=== PATIENT | male | born 1955 | race Caucasian/White ===

== ENCOUNTER 2020-02-28 15:19 | Emergency (ER) | payer MEDICARE, SELFPAY ==
--- NOTE | ~2020-02-28 | XR_ITS ---
XR chest 2V 02/28/2020 15:49 Indication: Bilateral leg swelling. Chest pain. Procedure: 2 view chest Comparison: No prior studies for comparison. Findings: Heart size normal. Small right pleural effusion. No focal pneumonia, edema or pneumothorax. The lungs are hyperinflated which is consistent with, but not diagnostic of chronic obstructive pulm onary disease. Impression: 1: Small right pleural effusion which appears chronic. Reviewed, dictated and finalized at location A. Impression: 1: Small right pleural effusion which appears chronic.
--- NOTE | ~2020-02-28 | US_ITS ---
EXAMINATION:US venous doppler LE BI INDICATION:Leg pain TECHNIQUE: Multiple grayscale, color flow and Doppler images of the lower extremity deep venous syste ms were obtained and reviewed. COMPARISON:No prior studies for comparison. FINDINGS: The common femoral, superficial femoral and popliteal veins demonstrate normal respiratory variation, augmentation and compressibility. Color flow is also seen within the posterior tibial, pe roneal, greater saphenous and profunda veins. IMPRESSION: 1: No lower extremity deep venous thrombosis. Reviewed, dictated and finalized at location A.
[2020-02-28 15:20] VITALS: BP 92/49; PULSE 84; RESP 16; TEMP 36.8; O2SAT 97
--- NOTE | 2020-02-28 15:31 | ECG_ITS ---
Measurements Intervals [place] Rate: 76 P: 27 LA: 204 QRS: 99 QRSD: 93 T: 30 QT: 381 QTc: 430 Interpretive Statements SINUS RHYTHM LOW QRS VOLTAGE IN PRECORDIAL LEADS BORDERLINE R WAVE PROGRESSION, ANTERIOR LEADS BASELINE WANDER- II, III BORDERLINE ECG Electronically Signed On 02-29-2020 6:58:51 CDT by Feroz Gambino D.O.
[2020-02-28 15:47] LABS: Basophils Percent Auto 0.4 % (0.2-1.2); Eosinophils Percent Auto 0.8 % (0-4.4); Hematocrit 44.8 % (42.0-52.0); Hemoglobin 14.6 g/dL (14.0-18.0); Immature Granulocyte Absolute 0.02 K/mm3 (0.00-0.031); Immature Granulocyte Percent A 0.4 % (0-0.5); Immature Platelet Fraction Pct 7.7 % (0.9-11.2); Lymphocytes Absolute Auto 1.03 K/mm3 (0.9-3.2); Lymphocytes Percent Auto 21.1 % (18.3-44.2); Mean Corpuscular HGB Conc 32.6 g/dl (32-36); Mean Corpuscular Hemoglobin 29.4 pg (26-34); Mean Corpuscular Volume 90.3 fl (80-100); Mean Platelet Volume 12.8 fl (7.4-10.4); Monocytes Absolute Auto 0.3 K/mm3 (0.1-0.6); Monocytes Percent Auto 6.1 % (2.6-8.5); Neutrophils Absolute Auto 3.5 K/mm3 (1.3-6.7); Neutrophils Percent Auto 71.2 % (45.5-73.1); Platelet Count Result 96 k/mm3 (150-375); Red Blood Count 4.96 M/mm3 (4.6-6.20); Red Cell Distribution Width 13.2 % (11.5-14.5); White Blood Count 4.9 K/mm3 (4.5-10.0)
[2020-02-28 15:52] LABS: INR 1.1; Prothrombin Time 13.7 Seconds (11.1-14.7)
[2020-02-28 15:53] LABS: Partial Thromboplastin Time 35.4 SECONDS (22.3-36.8)
[2020-02-28 15:55] LABS: Blood Urea Nitrogen 11 mg/dL (9-20); Calcium 9.8 mg/dL (8.4-10.2); Carbon Dioxide 24 mmol/L (22-30); Chloride 111 mmol/L (98-107); Estimated CRCL calculation 99 ml/min; Estimated Glomerular Filt Rate > 60; Glucose 108 mg/dL (75-110); Potassium 3.8 mmol/L (3.4-5.0); Sodium 141 mmol/L (137-145)
[2020-02-28 16:05] LABS: NT Pro B Type Natriuretic Pept 138 PG/ML (5-100)
[2020-02-28 16:08] LABS: Troponin I < 0.012 ng/mL (0.000-0.034)
--- NOTE | 2020-02-28 18:04 | ED.GENADULT ---
HPI - General Adult General Chief complaint: Extremity Problem,Nontraumatic Stated complaint: Lower Ext Swelling Time Seen by Provider: 02/28/20 17:57 Source: patient and family Mode of arrival: wheelchair Limitations: no limitations History of Present Illness HPI narrative: Patient is a 64-year-old male who presents for evaluation of intermittent chest pain, lower extremity swelling. Patient's states that he has had intermittent chest pain over the past several days, but has had no chest pain today. No current shortness of breath. He has had a dry cough over the past several days. Patient also has had reported lower extremity swelling chronically, worsened over the past week. No calf pain, redness. No fever or chills. Patient has been compliant with his medications. No history of blood clot in the past. No history of heart attack, no cardiac stents. Patient currently denying any pain. No recent travel. No recent sick exposures. Related Data Home Medications Medication Instructions Recorded Confirmed cephalexin 500 mg capsule 500 mg PO cap 12/17/19 hydrocodone 10 mg-acetaminophen 1 tablet PO Q4H tablet 12/17/19 325 mg tablet Allergies Allergy/AdvReac Type Severity Reaction Status Date / Time No Known Allergies Allergy Unknown Verified 12/26/19 15:21 Review of Systems Review of Systems: Narrative: CONSTITUTIONAL: Denies fever, chills, or sweats. EYES: Denies visual changes, redness, or discharge. ENT: Denies rhinorrhea, congestion, sore throat, or otalgia. CARDIOVASCULAR: Denies current chest pain, palpitations, reports bilateral lower extremity edema RESPIRATORY: Reports dry cough, denies shortness of breath GASTROINTESTINAL: Denies abdominal pain, nausea, vomiting, or diarrhea. GENITOURINARY: Denies dysuria or hematuria. SKIN: Denies rash or itching. MUSCULOSKELETAL: Denies back pain, joint pain, or myalgia. NEUROLOGIC: Denies headache, numbness, reports chronic weakness, denies new weakness PMF Past Medical History Medical History Chronic obstructive pulmonary disease Essential (primary) hypertension Type 2 diabetes mellitus with other specified complication Family History Family History Father Hypertension Mother Hypertension Social History Social History (Updated 05/07/20 @ 18:16 by Maxine Johnson MD) Smoking status: Current every day smoker Tobacco type: cigarettes Second hand tobacco smoke exposure: No Smoking end date: 10/24/16 Alcohol intake: never Exam Narrative: Exam Narrative: GENERAL: Awake, alert, conversant HEAD: Normocephalic, atraumatic. EYES: PERRLA and EOMI. ENT: Nares clear, no rhinorrhea or epistaxis. Mucous membranes moist. NECK: Supple. CHEST: No respiratory distress, breathing even and non labored, no chest wall tenderness HEART: Regular rate, sinus rhythm ABDOMEN:Non distended, non tender EXTREMITIES: Normal range of motion. Bilateral lower extremity nonpitting edema, no calf tenderness. SKIN: Warm, dry, no rash. NEURO:No focal deficits. Alert and oriented x3 Course Vital Signs Vital signs: Vital Signs Temperature 36.8 C 02/28/20 15:20 Pulse Rate 84 02/28/20 15:20 Respiratory Rate 16 02/28/20 15:20 Blood Pressure 92/49 L 02/28/20 15:20 Pulse Oximetry 97 02/28/20 15:20 Temperature 36.8 C 02/28/20 15:20 Pulse Rate 84 02/28/20 15:20 Respiratory Rate 16 02/28/20 15:20 Blood Pressure 92/49 L 02/28/20 15:20 Pulse Oximetry 97 02/28/20 15:20 Medical Decision Making MDM Narrative Medical decision making narrative: Patient presented for evaluation of intermittent chest pain, and bilateral lower extremity swelling. Patient is not very ambulatory at home per , they referred to this facility by her PCP after doing a screening over the phone. Patient typically follows at [facility]. At the [facility]
[2020-02-28 18:59] VITALS: BP 158/88; PULSE 97; RESP 18; O2SAT 95
== END 2020-02-28 18:59 | disposition left against medical advice (07) ==
PROVIDERS: Emergency Medicine; Emergency Provider Emergency Medicine
DX: R07.89 Other chest pain (principal); R60.0 Localized edema; R05 Cough; J44.9 Chronic obstructive pulmonary disease, unspecified; I10 Essential (primary) hypertension; E11.9 Type 2 diabetes mellitus without complications; F17.210 Nicotine dependence, cigarettes, uncomplicated
CPT/HCPCS: 36415; 71046; 80048; 83880; 84484; 85025; 85055; 85610; 85730; 93005; 93970; 99284

== ENCOUNTER 2021-03-20 07:16 | Observation (INO) | payer MEDICARE, SELFPAY ==
[2021-03-20] VITALS (12 sets, daily range): BP systolic 128–143; BP diastolic 58–88; PULSE 56–81; RESP 10–18; TEMP 36.3–36.6; O2SAT 97–100; BMI 30.4
--- NOTE | ~2021-03-20 | XR_ITS ---
EXAMINATION: XR chest 1V DATE: 03/20/2021 09:05 INDICATION: Transient alteration of awareness TECHNIQUE: frontal view of the chest was obtained. COMPARISON: Chest radiograph dated 03/09/2020 FINDINGS: Very small left pleural effusion with blunting at the costophrenic angle.. Mild streaky bibasilar [place] and favor atelectasis over pneumonia. No pulmonary edema, pneumothorax or right-sided pleural effusion. The cardiomediastinal silhouette is normal. Moderate thoracic spondylosis. IMPRESSION: 1. Small left pleural effusion. 2. Mild streaky bibasilar atelectasis versus less likely pneumonia. Reviewed, dictated and finalized at location A.
--- NOTE | ~2021-03-20 | MR_ITS ---
EXAMINATION: MR brain/brain stem wo/w con DATE: 03/20/2021 16:46 INDICATION: TIA TECHNIQUE: Magnetic resonance imaging (MRI) of the brain and brainstem was performed without and with 18 cc MultiHance intravenous contrast. Sequences included sagittal and axial T1-weighted SE, axial d iffusion-weighted FS SE, axial T2*-weighted GRE, axial T2-weighted FLAIR Propeller, and axial T2-weig hted Propeller. Apparent diffusion coefficient (ADC) maps were created. COMPARISON: CTA brain/carotid dated 03/20/2021. FINDINGS: There are changes of left parietal craniotomy with associated artifact. No acute infarction or hemorrhage. Normal brain parenchymal volume for age. No ventriculomegaly or midline shift. Struct ures of the posterior fossa including 7/8th cranial nerve complexes are normal. Orbits are symmetric without disconjugate gaze. No abnormal intracranial enhancement. Paranasal sinuses are unremarkable. IMPRESSION: 1. Normal brain for age. No acute intracranial abnormality. Reviewed, dictated and finalized at location A.
--- NOTE | ~2021-03-20 | US_ITS ---
EXAMINATION: US venous doppler [facility] DATE: 03/21/2021 14:16 INDICATION: Lower limb edema. TECHNIQUE: Grayscale ultrasound images without and with compression and Doppler ultrasound images of the bilateral lower extremity veins were obtained. COMPARISON: Ultrasound 02/28/2020 FINDINGS: The visualized portions of right common femoral vein, profunda (deep) femoral vein, femoral vein, pop liteal vein, posterior tibial veins, and greater saphenous vein outflow are patent. The visualized portions of left common femoral vein, profunda femoral vein, femoral vein, popliteal v ein, peroneal veins, posterior tibial veins, and greater saphenous vein outflow are patent. IMPRESSION: 1. No deep venous thrombosis. Reviewed, dictated and finalized at location A.
--- NOTE | ~2021-03-20 | US_ITS ---
EXAMINATION: US carotid duplex BI DATE: 03/21/2021 14:16 INDICATION: Right hemiparesis. TECHNIQUE: Grayscale, color Doppler, and pulsed Doppler images of the cervical carotid arteries were obtained. The degree of vessel stenosis is placed in one of the following categories: normal, <50%, 5 0-69%, >=70% but less than near-occlusion, near-occlusion, or total occlusion. Note that percent sten osis relative to normal distal artery lumen diameter is indirectly measured from velocity measurement s as described by Hari, et al. Radiology 2003; 229:340-346. COMPARISON: CTA 03/20/21 FINDINGS: RIGHT: The right common carotid artery (CCA) peak systolic velocity (PSV) is 79 cm/s. The right internal car otid artery (ICA) PSV is 93 cm/s. The right ICA end-diastolic velocity (EDV) is 19 cm/s. The right IC A/CCA PSV ratio is 1.2. Grayscale and color Doppler images yield an estimate of <50% diameter reducti on from plaque in the ICA. There is antegrade flow in the right vertebral artery. LEFT: The left CCA PSV is 91 cm/s. The left ICA PSV is 81 cm/s. The left ICA EDV is 19 cm/s. The left ICA/C CA PSV ratio is 0.9. Grayscale and color Doppler images yield an estimate of <50% diameter reduction from plaque in the ICA. There is antegrade flow in the left vertebral artery. IMPRESSION: 1. <50% stenosis in the right internal carotid artery. 2. <50% stenosis in the left internal carotid artery. Reviewed, dictated and finalized at location A.
--- NOTE | ~2021-03-20 | CT_ITS ---
EXAMINATION: CTA brain carotid DATE: 03/20/2021 09:11 INDICATION: Cerebral vascular accident. Right hemiparesis. TECHNIQUE: Computed tomographic angiography (CTA) of the head was performed without and with 100 mL O mnipaque-350 intravenous contrast. CTA of the neck was performed with intravenous contrast. Automated exposure control and iterative reconstruction technique were employed. The dose-length product was 1 774.19 mGy-cm. Maximum intensity projection and volume rendered 3D-reconstructions were created by gabbie ruiz technologist on a separate workstation. COMPARISON: None. FINDINGS: HEAD CTA: There is no intracranial hemorrhage, acute infarction, or abnormal intracranial mass lesion . The ventricles are normal in size. There is mild mucosal thickening in the paranasal sinuses. There is an old blowout fracture of medial wall of left orbit. There are likely changes of right ocular le ns replacement surgery. 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 There are changes of left-sided craniotomy. The vertebral arteries are codominant. There is no significant stenosis of basilar artery or the posterior cerebral arteries. There is no significant stenosis of the intracrani al internal carotid arteries or anterior or middle cerebral arteries. The anterior communicating deandre ry is normal. Posterior communicating arteries are not identified. There is no aneurysm. NECK CTA: A calcified left lung nodule and calcified hilar and mediastinal lymph nodes are consistent with old granulomatous disease. There are no pathologically enlarged lymph nodes. There is no signif icant stenosis of the vertebral arteries. There is plaque in the proximal internal carotid arteries. There is 47% stenosis of the proximal right internal carotid artery relative to normal distal artery lumen diameter (NASCET criteria). There is 0% stenosis of the proximal left internal carotid artery r elative to normal distal artery lumen diameter. There is moderate cervical spondylosis. IMPRESSION: 1. Normal brain. 2. No aneurysm or significant intracranial arterial stenosis. 3. 47% stenosis of the proximal right internal carotid artery relative to normal distal artery lumen diameter (NASCET criteria). 4. 0% stenosis of the proximal left internal carotid artery relative to normal distal artery lumen di ameter. 5. 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 Reviewed, dictated and finalized at location A. IMPRESSION: 1. Normal brain. 2. No aneurysm or significant intracranial arterial stenosis. 3. 47% stenosis of the proximal right internal carotid artery relative to shalom l distal artery lumen diameter (NASCET criteria). 4. 0% stenosis of the proximal left internal carotid artery relative to normal distal artery lumen diameter. 5. 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
--- NOTE | 2021-03-20 07:26 | ECG_ITS ---
Measurements Intervals [place] Rate: 61 P: 75 [place]: 255 QRS: 70 QRSD: 101 T: 59 QT: 413 QTc: 416 Interpretive Statements SINUS RHYTHM WITH MARKED SINUS ARRHYTHMIA WITH FIRST DEGREE AV BLOCK LOW QRS VOLTAGE IN LIMB LEADS CANNOT RULE OUT SEPTAL INFARCT, AGE INDETERMINATE ABNORMAL ECG Electronically Signed On 03-20-2021 12:15:35 CDT by Feroz Gambino D.O.
[2021-03-20 07:27] LABS: Glucose Point of Care 72 mg/dl (65-105)
--- NOTE | 2021-03-20 07:57 | ED.GENADULT ---
HPI - General Adult General Chief complaint: Unspecified Stated complaint: R ARM SWOLLEN Time Seen by Provider: 03/20/21 07:28 Source: patient, EMS and RN notes reviewed Mode of arrival: EMS Limitations: no limitations History of Present Illness HPI narrative: Patient is 65 years old white male brought to the emergency room by ambulance because of inability to move his right upper extremity. Patient lives with his sister, woke up this morning and noticed weakness all over more right upper and right lower extremity. Patient is unable to move right upper extremity. Sister called 911. Last time patient was seen doing okay 9:30 PM last night. History of diabetes, hypertension, hyperlipidemia, bipolar, peripheral neuropathy, PTSD, smoking. Patient is disabled vet. And full code. Patient been vaccinated for COVID-19 weeks ago. Patient denies any fever, chills, nausea, vomiting, chest pain, shortness of breath, headache. Related Data Home Medications Medication Instructions Recorded Confirmed albuterol sulfate 90 mcg/actuation 1 inh INHALATION Q4H 11/20/20 11/20/20 aerosol inhaler amlodipine 10 mg tablet 10 mg PO DAILY 11/20/20 11/20/20 aspirin 81 mg tablet,delayed 81 mg PO DAILY 11/20/20 11/20/20 release atorvastatin 80 mg tablet 40 mg PO DAILY tablet 11/20/20 11/20/20 budesonide-formoterol HFA 160 2 puff INHALATION Q12H 11/20/20 11/20/20 mcg-4.5 mcg/actuation aerosol inhaler cholecalciferol (vitamin D3) 50 50 mcg PO DAILY 11/20/20 11/20/20 mcg (2,000 unit) capsule clonazepam 0.5 mg tablet 0.5 mg PO .QID PRN tablet 11/20/20 11/20/20 diclofenac potassium 50 mg tablet 50 mg PO DAILY 11/20/20 11/20/20 hydralazine 10 mg tablet 10 mg PO TID 11/20/20 11/20/20 lisinopril 40 mg tablet 60 mg PO DAILY tablet 11/20/20 11/20/20 miconazole nitrate 2 % topical 1 spray TOPICAL TID g 11/20/20 11/20/20 spray powder nicotine (polacrilex) 4 mg buccal 4 mg BUCCAL Q8H PRN 01/28/21 01/28/21 lozenge omeprazole 40 mg capsule,delayed 40 mg PO DAILY 11/20/20 11/20/20 release polyethylene glycol 3350 17 gram 17 g PO DAILY 11/20/20 11/20/20 oral powder packet psyllium husk 0.4 gram capsule 0.4 g PO DAILY 11/20/20 11/20/20 risperidone 4 mg tablet 4 mg PO DAILY 11/20/20 11/20/20 temazepam 15 mg capsule 15 mg PO .prn cap 11/20/20 11/20/20 tiotropium bromide 2.5 2 puff INHALATION DAILY 11/20/20 11/20/20 mcg/actuation mist for inhalation topiramate 100 mg capsule,extended 200 mg PO DAILY cap 11/20/20 11/20/20 release 24 hr trazodone 100 mg tablet 200 mg PO DAILY tablet 11/20/20 11/20/20 Allergies Allergy/AdvReac Type Severity Reaction Status Date / Time rabies vaccine, human Allergy Unknown Verified 03/20/21 07:58 diploid cell Review of Systems Review of Systems: Narrative: CONSTITUTIONAL: Denies fever, chills, or sweats. EYES: Denies visual changes, redness, or discharge. ENT: Denies rhinorrhea, congestion, sore throat, or otalgia. CARDIOVASCULAR: Denies chest pain, palpitations, or edema. RESPIRATORY: Denies cough or dyspnea. GASTROINTESTINAL: Denies abdominal pain, nausea, vomiting, or diarrhea. GENITOURINARY: Denies dysuria or hematuria. SKIN: Denies rash or itching. MUSCULOSKELETAL: Denies back pain, joint pain, or myalgia. NEUROLOGIC: Denies headache, numbness, or weakness. PSYCHIATRIC: Denies anxiety or depression. [facility] Past Medical History Medical History Anxiety Bipolar depression Chronic low back pain Chronic obstructive pulmonary disease Dyslipidemia Essential (primary) hypertension GERD without esophagitis Insomnia Osteoarthritis Peripheral neuropathy PTSD (post-traumatic stress disorder) Type 2 diabetes mellitus with other specified complication Vitamin D deficiency Surgical History Surgical History H/O bilateral inguinal hernia repair (Unknown) H/O right knee surgery (Unknown) Right kne
[2021-03-20 08:21] LABS: Basophils Percent Auto 0.3 % (0.2-1.2); Eosinophils Absolute Auto 0.1 K/mm3 (0-0.3); Eosinophils Percent Auto 1.3 % (0-4.4); Hematocrit 40.8 % (42.0-52.0); Hemoglobin 13.1 g/dL (14.0-18.0); Immature Granulocyte Absolute 0.01 K/mm3 (0.00-0.031); Immature Granulocyte Percent A 0.3 % (0-0.5); Lymphocytes Absolute Auto 1.07 K/mm3 (0.9-3.2); Lymphocytes Percent Auto 27.2 % (18.3-44.2); Mean Corpuscular HGB Conc 32.1 g/dl (32-36); Mean Corpuscular Volume 93.6 fl (80-100); Mean Platelet Volume 12.8 fl (7.4-10.4); Monocytes Absolute Auto 0.3 K/mm3 (0.1-0.6); Monocytes Percent Auto 7.1 % (2.6-8.5); Neutrophils Absolute Auto 2.5 K/mm3 (1.3-6.7); Neutrophils Percent Auto 63.8 % (45.5-73.1); Platelet Count Result 80 k/mm3 (150-375); Red Blood Count 4.36 M/mm3 (4.6-6.20); Red Cell Distribution Width 13.3 % (11.5-14.5); White Blood Count 3.9 K/mm3 (4.5-10.0)
[2021-03-20 08:31] LABS: INR 1.1; Partial Thromboplastin Time 34.2 SECONDS (22.3-36.8); Prothrombin Time 14.6 Seconds (11.1-14.7)
[2021-03-20 08:32] LABS: Alanine Aminotransferase 17 U/L (4-50); Albumin Level 3.6 g/dL (3.5-5.1); Alkaline Phosphatase 68 U/L (38-126); Anion Gap 3 mmol/L (8-16); Aspartate Amino Transferase 16 U/L (17-59); Bilirubin,Total 0.3 mg/dL (0.2-1.3); Blood Urea Nitrogen 15 mg/dL (9-20); Calcium 9.9 mg/dL (8.4-10.2); Carbon Dioxide 26 mmol/L (22-30); Chloride 113 mmol/L (98-107); Estimated CRCL calculation 79 ml/min; Estimated Glomerular Filt Rate > 60; Glucose 92 mg/dL (75-110); Potassium 4.7 mmol/L (3.4-5.0); Sodium 142 mmol/L (137-145)
[2021-03-20 08:43] LABS: Troponin I < 0.012 ng/mL (0.000-0.034)
--- NOTE | 2021-03-20 08:45 | PC.NURSE ---
patient declines straight cath stating that he will not give us urine until we give him water.
[2021-03-20 09:34] LABS: Add Urine Microscopic? YES; Appearance Urine Clear (Clear); Bilirubin Urine Negative (Negative); Blood Urine 1+ (Negative); Color Urine Yellow (Yellow); Glucose Urine UA Negative (Negative); Ketones Urine Negative (Negative); Leukocyte Esterase Ur Negative LEU/UL (Negative); Nitrate Urine Negative (Negative); Protein Urine Negative (Negative); RBC Urine 21-50 /hpf (0-2); Specific Grav Ur 1.017 (1.001-1.035); Squamous Epithelial Cell Urine Rare /hpf (Few); Urobilinogen Urine Negative mg/dL (<2.0); WBC Urine 0-3 /hpf
[2021-03-20] MEDS: ASPIRIN 81 MG CHEWABLE TABLET 324 MG PO (11:59)
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
--- NOTE | 2021-03-20 14:20 | PC.NURSE ---
This patient, Art Momin, was admitted to [facility] Surg Room 312-01. Patient/family oriented to hospital policies and general routines including ID bracelet, bed and alarms, visiting hours, pain management, procedures, bathroom and other care routines, personal items, smoking policy, room service/diet, and visiting hours.Report received from Kailee SHAFFER Information on how to activate the Rapid Response Team has been discussed. Patient/Family are encouraged to report perceived risks to care and to ask questions if they do not understand what they are told or what they should do.
[2021-03-20] MEDS: HYDROcodone/acetaminophen (*CRX) 10-325 MG TABLET 1 TAB PO (18:20)
[2021-03-20] MEDS: traZODone HCL 50 MG TABLET 200 MG PO ×2 (18:30→21:30)
[2021-03-20] MEDS: hydrALAZINE 10 MG TABLET PO (18:31)
[2021-03-20] MEDS: risperiDONE 1 MG TABLET 4 MG PO (20:29)
[2021-03-20] MEDS: GABAPENTIN 400 MG CAPSULE 1200 MG PO (21:30)
[2021-03-20] MEDS: TOPIRAMATE 100 MG TABLET 200 MG PO (21:30)
[2021-03-20] MEDS: TEMAZEPAM (*CRX) 15 MG CAPSULE PO (21:30)
[2021-03-20] MEDS: clonazePAM (*CRX) 0.5 MG TABLET PO (22:34)
[2021-03-20] MEDS: MELOXICAM 7.5 MG TABLET PO (22:44)
[2021-03-21] VITALS (9 sets, daily range): BP systolic 103–114; BP diastolic 57–59; PULSE 54–66; RESP 18–20; TEMP 36.2–36.8; O2SAT 91–96
[2021-03-21] MEDS: HYDROcodone/acetaminophen (*CRX) 10-325 MG TABLET 1 TAB PO ×5 (03:51→20:19)
[2021-03-21 06:12] LABS: Anion Gap 1 mmol/L (8-16); Blood Urea Nitrogen 13 mg/dL (9-20); Calcium 9.8 mg/dL (8.4-10.2); Carbon Dioxide 26 mmol/L (22-30); Chloride 113 mmol/L (98-107); Estimated CRCL calculation 78 ml/min; Estimated Glomerular Filt Rate > 60; Glucose 85 mg/dL (75-110); Magnesium 1.9 mg/dL (1.6-2.3); Potassium 3.9 mmol/L (3.4-5.0); Sodium 140 mmol/L (137-145)
[2021-03-21 06:26] LABS: Hematocrit 40.3 % (42.0-52.0); Hemoglobin 13.1 g/dL (14.0-18.0); Mean Corpuscular HGB Conc 32.5 g/dl (32-36); Mean Corpuscular Hemoglobin 30.2 pg (26-34); Mean Corpuscular Volume 92.9 fl (80-100); Platelet Count Result 80 k/mm3 (150-375); Red Blood Count 4.34 M/mm3 (4.6-6.20)
[2021-03-21] MEDS: GABAPENTIN 400 MG CAPSULE 1200 MG PO ×3 (06:55→22:25)
[2021-03-21] MEDS: clonazePAM (*CRX) 0.5 MG TABLET PO ×3 (06:55→22:20)
[2021-03-21] MEDS: TOPIRAMATE 100 MG TABLET 200 MG PO ×2 (08:14→20:35)
[2021-03-21] MEDS: amLODIPine BESYLATE 5 MG TABLET 10 MG PO (08:14)
[2021-03-21] MEDS: lisinopriL 20 MG TABLET 40 MG PO (08:14)
[2021-03-21] MEDS: ASPIRIN 81 MG CHEWABLE TABLET PO (08:15)
[2021-03-21] MEDS: CHOLECALCIFEROL 1,000 UNITS TABLET 2000 UNITS PO (08:15)
[2021-03-21] MEDS: PANTOPRAZOLE 40 MG TABLET PO (08:15)
[2021-03-21] MEDS: ATORVASTATIN 40 MG TABLET PO (08:15)
[2021-03-21] MEDS: MELOXICAM 7.5 MG TABLET PO ×3 (08:15→23:20)
[2021-03-21] MEDS: hydrALAZINE 10 MG TABLET 20 MG PO (08:16)
[2021-03-21] MEDS: ENOXAPARIN 40 MG/0.4 ML SYRINGE SUB-Q (08:16)
--- NOTE | 2021-03-21 08:54 | PM.IMPN ---
Progress Note: A&P Assessment and Plan (1) Type 2 diabetes mellitus: Code(s): E11.9 - Type 2 diabetes mellitus without complications Status: Acute Assessment and Plan: Insulin sliding scale (2) Right hand paresthesia: Code(s): R20.2 - Paresthesia of skin Status: Acute Assessment and Plan: Rule out TIA Neurology consult Pending echo and carotid Doppler (3) Obstructive sleep apnea: Code(s): G47.33 - Obstructive sleep apnea (adult) (pediatric) Status: Acute Assessment and Plan: Continue home treatment (4) Essential hypertension: Code(s): I10 - Essential (primary) hypertension Status: Acute Assessment and Plan: Continue current medication (5) Chronic obstructive pulmonary disease: Code(s): J44.9 - Chronic obstructive pulmonary disease, unspecified Status: Chronic Assessment and Plan: Stable resume home treatment (6) Pneumonia: Code(s): J18.9 - Pneumonia, unspecified organism Status: Acute Additional Plan Chest x-ray concern for pneumonia patient complains of cough and chills will get blood culture give Rocephin present on admission Subjective Date/time seen: 03/21/21 08:54 Interval history: Patient seen and examined Patient complains of cough and chills chest x-ray concern for pneumonia Patient denies fever headache chest pain I am seeing the patient for hand weakness Exam Narrative: Exam Narrative: Alert Chest no wheeze crackles Abdomen nontender nondistended CVS S1 + S2 Neurology no weakness no no numbness of the right hand Lower extremity edema Objective Data Vital Signs Vital Signs: Vital Signs - 24 hr 03/20/21 09:25 03/20/21 10:25 03/20/21 11:41 Temperature Pulse Rate 69 62 72 Respiratory Rate 14 12 14 Blood Pressure 136/79 128/58 L Pulse Oximetry 100 98 98 03/20/21 12:39 03/20/21 13:28 03/20/21 13:57 Temperature Pulse Rate 59 L 60 58 L Respiratory Rate 13 18 Blood Pressure 138/62 137/88 Pulse Oximetry 98 98 03/20/21 14:20 03/20/21 16:00 03/20/21 20:00 Temperature 97.3 F L Pulse Rate 59 L 81 57 L Respiratory Rate 16 Blood Pressure 143/76 H Pulse Oximetry 99 03/20/21 21:56 03/21/21 00:00 03/21/21 04:00 Temperature 97.9 F Pulse Rate 74 58 L 66 Respiratory Rate 18 Blood Pressure 139/67 Pulse Oximetry 99 03/21/21 06:00 03/21/21 08:32 Temperature 97.8 F Pulse Rate 65 Respiratory Rate 20 Blood Pressure 114/58 L Pulse Oximetry 91 91 Intake/Output Intake/Output: Intake & Output 03/18/21 03/19/21 03/20/21 03/21/21 23:59 23:59 23:59 23:59 Intake Total 580 150 Balance 580 150 Meds/Results Medications: Active Medications Generic Name Dose Route Start Last Admin Trade Name Freq PRN Reason Stop Dose Admin Hydrocodone Bitart/Acetaminophen 1 tab 03/20/21 21:00 03/21/21 08:16 Hydrocodone/Acetaminophen (*Crx) 10-325 Mg Tablet PO 1 tab Q4HR JESSIKA Administration Albuterol 1 puff 03/20/21 18:05 Albuterol Sulfate (*Sp) Aerosol 1 Puff INHALATION Q4H PRN Shortness Of Breath Amlodipine Besylate 10 mg 03/21/21 09:00 03/21/21 08:14 Amlodipine Besylate 5 Mg Tablet PO 10 mg DAILY JESSIKA Administration Aspirin 81 mg 03/21/21 08:00 03/21/21 08:15 Aspirin 81 Mg Chewable Tablet PO 81 mg DAILY@0800 JESSIKA Administration Aspirin 81 mg 03/21/21 09:00 Aspirin 81 Mg Enteric Tablet PO DAILY [facility] Atorvastatin Calcium 40 mg 03/21/21 09:00 03/21/21 08:15 Atorvastatin 40 Mg Tablet PO 40 mg DAILY JESSIKA Administration Budesonide/Formoterol Fumarate 2 puff 03/20/21 20:00 03/21/21 08:20 Budesonide/Form 160-4.5 Mcg (*Sp) INHALATION 2 puff Q12HRT JESSIKA Administration Clonazepam 0.5 mg 03/20/21 22:00 03/21/21 06:55 Clonazepam (*Crx) 0.5 Mg Tablet PO 0.5 mg Q8HR JESSIKA Administration Enoxaparin Sodium 40 mg 03/21/21 09:00 03/21/21 08:16 Enoxaparin 40 Mg/0.4 Ml Sy
[2021-03-21 11:47] LABS: Glucose Point of Care 119 mg/dl (65-105)
[2021-03-21] MEDS: traZODone HCL 50 MG TABLET 200 MG PO ×2 (17:35→21:22)
[2021-03-21] MEDS: hydrALAZINE 10 MG TABLET PO (17:36)
[2021-03-21] MEDS: risperiDONE 1 MG TABLET 4 MG PO (20:19)
[2021-03-21] MEDS: TEMAZEPAM (*CRX) 15 MG CAPSULE PO (20:35)
--- NOTE | 2021-03-21 22:22 | ECHO_ITS ---
Patient Info Name: Art Momin Age: 65 years : 1955 Gender: Male Ht: 68 in Wt: 200 lbs BSA: 2.11 m2 HR: 54 bpm BP: 114 / 58 mmHg Technical Quality: Good Exam Date: 03/21/2021 7:02 AM Exam Location: [facility] Patient Status: Inpatient Admit Date: 03/20/2021 Staff Ordering Physician: Nina Centeno PA-C Blade Filer: Ya Mckeon RDCS Attending Provider: Kei Tran MD Referring Physician: Jacobo SIERRA; Exam Type: CA echo doppler color flow Study Info Complete two-dimensional, color flow and Doppler transthoracic echocardiogram is performed. Summary 1. Complete two-dimensional, color flow and Doppler transthoracic echocardiogram is performed. 2. Borderline LV enlargement, mild LVH, normal LV systolic function, EF 60-65%, normal diastolic function. Normal structure of the valves. Unable to assess RVSP due to inadequate TR jet. Left Ventricle Left ventricular chamber dimension is mildly enlarged. Left ventricular systolic function is normal, estimated at 60-65%. There is mildly increased left ventricular wall thickness. The left ventricular diastolic function is normal. Right Ventricle Right ventricular chamber dimension is normal. Right ventricular systolic function is normal. Left Atria Left atrial chamber dimension is mildly enlarged. Right Atria Right atrial chamber dimension is normal. Aortic Valve The aortic valve is normal. Pulmonic Valve The pulmonic valve is not well visualized. Mitral Valve The mitral valve has normal leaflets. There is trace mitral valve regurgitation. Tricuspid Valve The tricuspid valve leaflets are normal. There is mild tricuspid valve regurgitation. Pericardium/Pleural The pericardium appears epicardial fat pad. Aorta The aortic root size at the sinus of Valsalva is normal. Left Ventricular Outflow Tract Name Value Normal LVOT 2D LVOT Diameter 2.2 cm LVOT Doppler LVOT Peak Gradient 5 mmHg LVOT Mean Gradient 3 mmHg LVOT VTI 22 cm LVOT VTI/AV VTI Ratio 0.7 LVOT Stroke Volume 85 ml LVOT CO 4.5 l/min LVOT CI 2.1 l/min/m2 Pulmonic Valve Name Value Normal PV Doppler PV Peak Gradient 2 mmHg Mitral Valve Name Value Normal MV Doppler MV Decel [place] 360 cm/s2 MV PHT 70 ms MV Area (PHT) 3.1 cm2 4.0
[2021-03-22] MEDS: HYDROcodone/acetaminophen (*CRX) 10-325 MG TABLET 1 TAB PO ×2 (05:00→08:51)
[2021-03-22] MEDS: GABAPENTIN 400 MG CAPSULE 1200 MG PO (05:00)
[2021-03-22] MEDS: clonazePAM (*CRX) 0.5 MG TABLET PO (05:00)
[2021-03-22 06:00] VITALS: BP 106/59; PULSE 60; RESP 20; TEMP 37.2; O2SAT 97
[2021-03-22] MEDS: TOPIRAMATE 100 MG TABLET 200 MG PO (08:51)
[2021-03-22] MEDS: PANTOPRAZOLE 40 MG TABLET PO (08:51)
[2021-03-22] MEDS: hydrALAZINE 10 MG TABLET 20 MG PO (08:52)
[2021-03-22] MEDS: ATORVASTATIN 40 MG TABLET PO (08:52)
[2021-03-22] MEDS: CHOLECALCIFEROL 1,000 UNITS TABLET 2000 UNITS PO (08:52)
[2021-03-22] MEDS: lisinopriL 20 MG TABLET 40 MG PO (08:52)
[2021-03-22] MEDS: MELOXICAM 7.5 MG TABLET PO (08:52)
[2021-03-22] MEDS: ASPIRIN 81 MG CHEWABLE TABLET PO (08:52)
[2021-03-22] MEDS: amLODIPine BESYLATE 5 MG TABLET 10 MG PO (08:52)
--- NOTE | 2021-03-22 09:32 | PM.DS ---
DS: Admitting Diagnosis Admitting Diagnosis Admitting Diagnosis: Right arm weakness and swelling paresthesia DS: Discharge Diagnosis Discharge Diagnosis (1) Type 2 diabetes mellitus: Code(s): E11.9 - Type 2 diabetes mellitus without complications Status: Acute Assessment and Plan: Stable continue home medication diet and exercise (2) Right hand paresthesia: Code(s): R20.2 - Paresthesia of skin Status: Acute Assessment and Plan: Ruled out TIA Most likely related to peripheral neuropathy follow-up with neurology as outpatient Carotid Doppler no significant carotid artery stenosis less than 50% Echo shows normal ejection fraction follow-up with PCP polypharmacy may need medication adjustment as outpatient follow-up with PCP (3) Obstructive sleep apnea: Code(s): G47.33 - Obstructive sleep apnea (adult) (pediatric) Status: Acute Assessment and Plan: Continue home treatment (4) Essential hypertension: Code(s): I10 - Essential (primary) hypertension Status: Acute Assessment and Plan: Continue current medication (5) Chronic obstructive pulmonary disease: Code(s): J44.9 - Chronic obstructive pulmonary disease, unspecified Status: Chronic Assessment and Plan: Stable resume home treatment (6) Pneumonia: Code(s): J18.9 - Pneumonia, unspecified organism Status: Acute Assessment and Plan: Probable pneumococcal pneumonia patient will be discharged on cefdinir culture is negative so far follow-up on final result with PCP DS: Summary Hospital Course Hospital Course: HPI narrative: Patient is 65 years old white male brought to the emergency room by ambulance because of inability to move his right upper extremity. Patient lives with his sister, woke up this morning and noticed weakness all over more right upper and right lower extremity which resolved History of diabetes, hypertension, hyperlipidemia, bipolar, peripheral neuropathy, PTSD, smoking. Patient is disabled vet. And full code. Patient been vaccinated for COVID-19 weeks ago. Patient denies any fever, chills, nausea, vomiting, chest pain, shortness of breath, headache. Patient was found to have probable pneumonia weakness most likely related to peripheral Neuropathy patient also has been on multiple medication for neuropathy pain control concern for drug interaction follow-up with PCP for medication adjustment. Neuro exam upper and lower extremity equal strength no a new sensory loss Time Spent with Patient Time attestation: Total time spent providing and/or coordinating discharge services:25 Exam Narrative: Exam Narrative: Alert Chest no wheeze crackles Abdomen nontender nondistended CVS S1 + S2 Neurology no weakness no no numbness of the right hand Lower extremity edema DS: Data Data Completed and Pending Labs on day of discharge: Labs from last 24 hours 03/21/21 11:31 POC Capillary Glucose 119 H Discharge Plan Discharge Attending physician on discharge: Audi Mann M.A. Consulting providers: Michael Mathews ; Laith Lux Discharging Clinician: Audi Mann M.A. Patient Disposition: Home, Self-Care Activity: as tolerated Diet: heart healthy Patient Instructions: Antibiotic Form, How to Stop Smoking (DC) Stand Alone Forms: General Discharge Information Follow-up/Referrals: Michael Mathews MD [Physician] - Laith Lux MD [Physician] - Discharge Medications: New cefdinir 300 mg capsule 300 mg PO Q12H Qty: 10 RF: 0 Continued albuterol sulfate 90 mcg/actuation HFA aerosol inhaler 1 inh inhalation Q4H PRN (Reason: Shortness Of Breath) RF: 0 amlodipine 10 mg tablet 10 mg PO DAILY RF: 0 aspirin [Adult Low Dose Aspirin] 81 mg tablet,delayed release (DR/EC) 81 mg PO DAILY RF: 0 atorvastatin 80 mg tablet 40 mg PO DAILY RF: 0 budesonide-formoterol 160-4.5 mcg/actuation
== END 2021-03-22 11:10 | disposition home or self-care (01) ==
LOC: ANHED 12:22 → ANH3MEDSUR 15:04
PROVIDERS: Physician Assistant; Admitting Provider Internal Medicine; Emergency Provider Emergency Medicine; Visit Provider Internal Medicine
DX: E11.9 Type 2 diabetes mellitus without complications (principal); R20.2 Paresthesia of skin; G47.33 Obstructive sleep apnea (adult) (pediatric); I10 Essential (primary) hypertension; J44.9 Chronic obstructive pulmonary disease, unspecified; J18.9 Pneumonia, unspecified organism; M79.89 Other specified soft tissue disorders; E78.5 Hyperlipidemia, unspecified; F31.9 Bipolar disorder, unspecified; F43.10 Post-traumatic stress disorder, unspecified; F41.9 Anxiety disorder, unspecified; K21.9 Gastro-esophageal reflux disease without esophagitis; I36.1 Nonrheumatic tricuspid (valve) insufficiency; E55.9 Vitamin D deficiency, unspecified; M54.5 Low back pain; G89.29 Other chronic pain; Z79.51 Long term (current) use of inhaled steroids; Z79.82 Long term (current) use of aspirin; F17.210 Nicotine dependence, cigarettes, uncomplicated
CPT/HCPCS: 36415; 70496; 70498; 70553; 71045; 80048; 80053; 81001; 82607; 82948; 83735; 84484; 85025; 85027; 85055; 85610; 85730; 87040; 93005; 93306; 93880; 93970; 96365; 96372; 96376; 99285; A9270; A9577; G0378; J0696; J1650; Q9967

== ENCOUNTER 2021-05-26 20:15 | Inpatient (IN) | payer MEDICARE, SELFPAY ==
--- NOTE | ~2021-05-26 | CT_ITS ---
EXAMINATION: CT brain wo con DATE: 05/26/2021 21:43 INDICATION: Confusion. Fever. TECHNIQUE: Computed tomography (CT) of the head was performed without intravenous contrast. The mA wa s adjusted according to patient size. Iterative reconstruction technique was employed. The dose-lengt h product was 605.33 mGy-cm. COMPARISON: Head CT 03/20/2021, brain MRI 03/20/2021 FINDINGS: There is no intracranial hemorrhage, acute infarction, or abnormal intracranial mass lesion . There is a small area of chronic encephalomalacia in left frontoparietal region with overlying varela ges of craniotomy. The ventricles are normal in size. There is mucosal thickening in the paranasal si nuses. There is an old blowout fracture of medial wall left orbit. There are likely changes of right ocular lens replacement surgery. There is a trace right mastoid effusion. IMPRESSION: 1. Small area of chronic encephalomalacia in left frontoparietal region. Reviewed, dictated and finalized at location A.
--- NOTE | ~2021-05-26 | XR_ITS ---
XR chest 1V portable 05/30/2021 08:01 Indication: Dyspnea. Pneumonia. Procedure: AP portable chest Comparison: Comparison to multiple prior studies sequentially, with oldest reviewed study dated 04/2020. Findings: Cardiomegaly with bilateral perihilar and bibasilar airspace disease. Small pleural effusio ns. No pneumothorax. No acute osseous abnormality. Impression: 1: Subtle bilateral perihilar and bibasilar airspace disease, compatible with pneumonia. Reviewed, dictated and finalized at location A. Impression: 1: Subtle bilateral perihilar and bibasilar airspace disease, compatible with p neumonia.
--- NOTE | ~2021-05-26 | XR_ITS ---
XR chest 1V portable 05/31/2021 08:43 Indication: Covid. Cough, shortness of breath Procedure: AP portable chest Comparison: Comparison to multiple prior studies sequentially, with oldest reviewed study dated Findings: Bibasilar airspace which may represent atelectasis or pneumonia. Small pleural effusions. T he lungs are hyperinflated which is consistent with, but not diagnostic of chronic obstructive pulmon giacomo disease. Impression: 1: Bibasilar airspace disease which may represent pneumonia or atelectasis. 2: Small pleural effusions. Reviewed, dictated and finalized at location A. Impression: 1: Bibasilar airspace disease which may represent pneumonia or atelectasis. 2: Small pleural effusions.
--- NOTE | ~2021-05-26 | XR_ITS ---
EXAMINATION: XR chest 1V portable INDICATION: Pneumonia TECHNIQUE: Portable AP chest at 0545 hours COMPARISON: 05/26/2021 FINDINGS: Minimal airspace of the lung bases persist without significant change. There is no pleural effusion or pneumothorax. The cardiomediastinal silhouette is normal. IMPRESSION: 1. Stable bibasilar airspace opacities, consistent with atelectasis versus pneumonia. Reviewed, dictated and finalized at location A. IMPRESSION: 1. Stable bibasilar airspace opacities, consistent with atelectasis versus pneu monia.
--- NOTE | ~2021-05-26 | CT_ITS ---
EXAMINATION: CT brain wo con DATE: 05/28/2021 23:51 INDICATION: Altered mental status. TECHNIQUE: Computed tomography (CT) of the head was performed without intravenous contrast. The mA wa s adjusted according to patient size. Iterative reconstruction technique was employed. The dose-lengt h product was 605.33 mGy-cm. COMPARISON: Head CT 05/26/2021 FINDINGS: There is a small area of chronic encephalomalacia in the left frontoparietal region. There are overlying changes of craniotomy. There is no intracranial hemorrhage, acute infarction, or abnorm al intracranial mass lesion. The ventricles are normal in size. There is mucosal thickening in the pa ranasal sinuses. There is an old blowout fracture of medial wall of left orbit. There are likely varela ges of right ocular lens replacement surgery. There is a trace right mastoid effusion. IMPRESSION: 1. Small area of chronic encephalomalacia in the left frontoparietal region. Reviewed, dictated and finalized at location A.
--- NOTE | ~2021-05-26 | XR_ITS ---
EXAMINATION: XR chest 2V DATE: 05/26/2021 20:49 INDICATION: Fever. Chronic obstructive pulmonary disease. TECHNIQUE: Frontal and lateral views of the chest were obtained on 4 radiographs. COMPARISON: Chest single view 03/20/2021, CT abdomen and pelvis 06/27/2016 FINDINGS: There are mild airspace opacities at the lung bases. Calcified pulmonary nodules and calcif ied hilar lymph nodes are consistent with old granulomatous disease. No pleural effusion or pneumotho rax. The heart size is normal. There is prominent extrapleural fat bilaterally. IMPRESSION: 1. Mild airspace opacities at the lung bases, consistent with atelectasis versus pneumonia. Reviewed, dictated and finalized at location A. IMPRESSION: 1. Mild airspace opacities at the lung bases, consistent with atelectasis versu s pneumonia.
[2021-05-26 20:16] VITALS: BP 125/80; PULSE 81; RESP 20; TEMP 38.8; O2SAT 90
[2021-05-26] MEDS: NALOXONE HCL 0.4 MG/ML VIAL IV PUSH (21:04)
[2021-05-26 21:17] LABS: Alveolar/Arterial O2 Gradient 42.4 mmHg; Base Excess ABG -2.1 mEq/l (+/-2.0); Device ROOM AIR; Fractional Inspired Oxygen 21 %; HCO3 ABG 22.6 mEq/l (22.0-26.0); Modified Allen's Test Pass; Oxygen Content ABG 14.9 %vol (16.0-22.0); Oxygen Saturation ABG 91.4 % (95.0-100.0); Oxyhemoglobin 90.7 % THb (90.0-100.0); PCO2 ABG 38.4 mmHg (35.0-45.0); PO2 ABG 61.3 mmHg (80.0-100.0); PO2 FiO2 Ratio Arterial Blood 2.92 %; Site Drawn LEFT RADIAL; Total Hemoglobin 11.7 g/dL (12.0-18.0); pH ABG 7.387 (7.350-7.450)
[2021-05-26 21:19] LABS: Hematocrit 33.6 % (42.0-52.0); Immature Granulocyte Absolute 0.01 K/mm3 (0.00-0.031); Immature Granulocyte Percent A 0.4 % (0-0.5); Immature Platelet Fraction Pct 5.6 % (0.9-11.2); Lymphocytes Absolute Auto 0.21 K/mm3 (0.9-3.2); Lymphocytes Percent Auto 8.5 % (18.3-44.2); Mean Corpuscular HGB Conc 32.7 g/dl (32-36); Mean Corpuscular Hemoglobin 29.4 pg (26-34); Mean Corpuscular Volume 89.8 fl (80-100); Mean Platelet Volume 11.9 fl (7.4-10.4); Monocytes Absolute Auto 0.2 K/mm3 (0.1-0.6); Monocytes Percent Auto 9.3 % (2.6-8.5); Neutrophils Percent Auto 81.8 % (45.5-73.1); Platelet Count Result 68 k/mm3 (150-375); Red Blood Count 3.74 M/mm3 (4.6-6.20); Red Cell Distribution Width 12.8 % (11.5-14.5); White Blood Count 2.5 K/mm3 (4.5-10.0)
[2021-05-26 21:25] LABS: Lactic Acid Reflex 0.8 mmol/L (0.7-2.1)
[2021-05-26 21:35] LABS: Alanine Aminotransferase 31 U/L (4-50); Albumin Level 3.7 g/dL (3.5-5.1); Alkaline Phosphatase 98 U/L (38-126); Anion Gap 7 mmol/L (8-16); Aspartate Amino Transferase 32 U/L (17-59); Bilirubin,Total 0.5 mg/dL (0.2-1.3); Blood Urea Nitrogen 11 mg/dL (9-20); Calcium 9.8 mg/dL (8.4-10.2); Carbon Dioxide 21 mmol/L (22-30); Chloride 103 mmol/L (98-107); Estimated CRCL calculation 81 ml/min; Estimated Glomerular Filt Rate > 60; Glucose 98 mg/dL (65-110); Potassium 3.9 mmol/L (3.4-5.0); Sodium 131 mmol/L (137-145)
[2021-05-26 22:08] VITALS: BP 115/60; PULSE 73; RESP 16; O2SAT 95
[2021-05-26] MEDS: LACTATED RINGERS 1,000 ML 999 ML IV CONT (22:10)
[2021-05-26] MEDS: NALOXONE HCL INJ 2 MG/2 ML AMP IV PUSH (22:13)
[2021-05-26 22:44] LABS: Add Urine Microscopic? YES; Appearance Urine Clear (Clear); Bacteria Urine Trace /hpf; Bilirubin Urine Negative (Negative); Blood Urine Negative (Negative); Color Urine Yellow (Yellow); Glucose Urine UA Negative (Negative); Ketones Urine Trace mg/dL (Negative); Leukocyte Esterase Ur Negative LEU/UL (Negative); Nitrate Urine Negative (Negative); Protein Urine Negative (Negative); RBC Urine 0-2 /hpf (0-2); Specific Grav Ur 1.009 (1.001-1.035); Squamous Epithelial Cell Urine Rare /hpf (Few); WBC Urine 0-3 /hpf
[2021-05-26 23:33] VITALS: BP 121/68; PULSE 74; RESP 16; O2SAT 91
--- NOTE | 2021-05-26 23:33 | PC.NURSE ---
Assumed care of pt at this time. Pt sleeping on stretcher, arousable to shaking (EDP aware). Updated family at bedside about POC. VSS.
[2021-05-27] VITALS (10 sets, daily range): BP systolic 105–131; BP diastolic 44–73; PULSE 71–88; RESP 12–22; TEMP 36.8–38.4; O2SAT 91–96
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
--- NOTE | 2021-05-27 01:18 | PC.NURSE ---
Patient's bed was soaking wet with urine. The sheets were changed and the patient cleaned up.
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
[2021-05-27] MEDS: LACTATED RINGERS 1,000 ML 125 ML IV CONT (02:30)
--- NOTE | 2021-05-27 04:22 | PC.NURSE ---
Attempted to call 3rd Med/Surg. This RN was informed that receiving RN was in a pt room and will call back when available.
--- NOTE | 2021-05-27 05:19 | PC.NURSE ---
This patient, Art Momin, was admitted to [facility] Surg Room 326-01. Patient/family oriented to hospital policies and general routines including ID bracelet, bed and alarms, visiting hours, pain management, procedures, bathroom and other care routines, personal items, smoking policy, room service/diet, and visiting hours. Information on how to activate the Rapid Response Team has been discussed. Patient/Family are encouraged to report perceived risks to care and to ask questions if they do not understand what they are told or what they should do.
--- NOTE | 2021-05-27 08:17 | PC.NURSE ---
Patient's level of consciousness appeared to improve through the shift. He was pleasant and talkative by morning. His sister Lizeth was called at 0529 about his medications and she confirmed what he had in his clinical data with a few minor changes.
[2021-05-27] MEDS: amLODIPine BESYLATE 5 MG TABLET 10 MG PO (10:33)
[2021-05-27] MEDS: ASPIRIN 81 MG ENTERIC TABLET PO (10:33)
[2021-05-27] MEDS: GABAPENTIN 400 MG CAPSULE 1200 MG PO ×3 (10:33→22:24)
[2021-05-27] MEDS: TOPIRAMATE 100 MG TABLET 200 MG PO ×2 (10:34→22:23)
[2021-05-27] MEDS: lisinopriL 20 MG TABLET 40 MG PO (10:34)
[2021-05-27] MEDS: CHOLECALCIFEROL 1,000 UNITS TABLET 2000 UNITS PO (10:34)
[2021-05-27] MEDS: ATORVASTATIN 40 MG TABLET PO (10:34)
[2021-05-27] MEDS: PANTOPRAZOLE 40 MG TABLET PO ×2 (10:35→22:23)
[2021-05-27 10:53] LABS: Influenza Control Positive
[2021-05-27] MEDS: PHARMACIST COMMUNICATION ORDER 1 EACH XX (10:55)
[2021-05-27] MEDS: hydrALAZINE 10 MG TABLET PO ×2 (11:08→13:56)
[2021-05-27] MEDS: HYDROcodone/acetaminophen (*CRX) 10-325 MG TABLET 1 TAB PO ×2 (11:53→18:03)
[2021-05-27] MEDS: ACETAMINOPHEN 325 MG TABLET 650 MG PO ×2 (13:55→22:42)
--- NOTE | 2021-05-27 15:23 | ECG_ITS ---
Measurements Intervals [place] Rate: 84 P: 95 SD: 265 QRS: 77 QRSD: 102 T: 45 QT: 357 QTc: 423 Interpretive Statements SINUS RHYTHM WITH FIRST DEGREE AV BLOCK DELAYED PRECORDIAL R/S TRANSITION LOW QRS VOLTAGE IN LIMB LEADS BASELINE ARTIFACT- I, II, III, AVR, V1-V2 ABNORMAL ECG Electronically Signed On 05-27-2021 15:57:10 CDT by Feroz Gambino D.O.
[2021-05-27] MEDS: traZODone HCL 50 MG TABLET 200 MG PO ×2 (17:05→22:23)
--- NOTE | 2021-05-27 17:17 | PM.IMPN ---
Progress Note: A&P Assessment and Plan (1) Pneumonia: Code(s): J18.9 - Pneumonia, unspecified organism Status: Acute Assessment and Plan: Patient is being treated for hospital-acquired pneumonia due to his recent hospitalization - continue cefepime, vanc, and azithromycin - consider COVID-19 as a source since he is leukopenic. he has been vaccinated - patient remains afebrile but it is improving - influenza negative (2) Encephalopathy: Code(s): G93.40 - Encephalopathy, unspecified Status: Acute Assessment and Plan: improved - likely secondary to above and possibly polypharmacy (3) Fever: Code(s): R50.9 - Fever, unspecified Status: Acute Assessment and Plan: likely due to pneumonia - recheck chest x-ray in the morning - if COVID is negative, consider abdomen and pelvis CT to ensure no further source of infection (4) Polypharmacy: Code(s): Z79.899 - Other fountain operator (current) drug therapy Status: Acute Assessment and Plan: patient does not know his doses or all of his medications - EMR states that he takes clonazepam 0.5 mg t.i.d. and [place] 10 mg every 4 hours - will add back [place] but will monitor for AMS (5) Psychiatric illness: Code(s): F99 - Mental disorder, not otherwise specified Status: Acute Assessment and Plan: continue risperidone, gabapentin, Topamax, and trazodone - will continue benzodiazepine but will make p.r.n. (6) Obstructive sleep apnea: Code(s): G47.33 - Obstructive sleep apnea (adult) (pediatric) Status: Acute Assessment and Plan: continue CPAP once covid neg (7) Tobacco abuse: Code(s): Z72.0 - Tobacco use Status: Acute Assessment and Plan: NICOTINE PATCH NEEDED (8) Essential hypertension: Code(s): I10 - Essential (primary) hypertension Status: Acute Assessment and Plan: blood pressure has been soft 105/44 - new blood pressure manual was systolic 120 - hold hydralizine, place parameters on amlodpaine and lisinopril (9) Post traumatic stress disorder: Code(s): F43.10 - Post-traumatic stress disorder, unspecified Status: Acute Assessment and Plan: STABLE FOLLOW-UP IN OUTPATIENT (10) Chronic low back pain: Code(s): M54.5 - Low back pain; G89.29 - Other chronic pain Status: Acute Assessment and Plan: Continue norco (11) Bipolar depression: Code(s): F31.9 - Bipolar disorder, unspecified Status: Acute Assessment and Plan: Continue as above (12) GERD without esophagitis: Code(s): K21.9 - Gastro-esophageal reflux disease without esophagitis Status: Acute (13) Chronic obstructive pulmonary disease: Qualifiers: COPD type: unspecified COPD Qualified Code(s): J44.9 - Chronic obstructive pulmonary disease, unspecified Code(s): J44.9 - Chronic obstructive pulmonary disease, unspecified Status: Chronic Assessment and Plan: CONTINUE with BUDESONIDE AND FORMOTEROL (14) Thrombocytopenia: Code(s): D69.6 - Thrombocytopenia, unspecified Status: Acute Assessment and Plan: Chronic and unchanged -follow up with pcp -avoid heparin (15) Hyponatremia: Code(s): E87.1 - Hypo-osmolality and hyponatremia Status: Acute Assessment and Plan: mild, last sodium 131 - monitor daily labs Time Spent With Patient Time with patient: 25 - 35 minutes Subjective Date/time seen: 05/27/21 17:17 Interval history: Pt is a 66 y/o male here for PNA. patient was seen today and states he is still coughing but it has improved. He really does not have any shortness of breath but has not been doing much. He is eating and drinking okay. He denies chest pain, nausea, vomiting, fevers, chills, abdominal pain, diarrhea or constipation. He fee
[2021-05-27 18:08] LABS: SARS-CoV-2 RNA PCR Positive
[2021-05-27] MEDS: BUDESONIDE/FORMOTEROL (*SP) 160-4.5 MCG 6 GM INH 2 PUFF INHALATION (22:13)
[2021-05-27] MEDS: risperiDONE 1 MG TABLET 4 MG PO (22:23)
[2021-05-28] VITALS (10 sets, daily range): BP systolic 110–132; BP diastolic 54–77; PULSE 68–79; RESP 18–20; TEMP 36.7–39; O2SAT 91–96
[2021-05-28] MEDS: BUDESONIDE/FORMOTEROL (*SP) 160-4.5 MCG 6 GM INH 2 PUFF INHALATION ×2 (06:39→22:02)
[2021-05-28 06:40] LABS: Hematocrit 31.9 % (42.0-52.0); Hemoglobin 10.6 g/dL (14.0-18.0); Mean Corpuscular HGB Conc 33.2 g/dl (32-36); Mean Corpuscular Hemoglobin 29.6 pg (26-34); Mean Corpuscular Volume 89.1 fl (80-100); Platelet Count Result 62 k/mm3 (150-375); Red Blood Count 3.58 M/mm3 (4.6-6.20); Red Cell Distribution Width 12.8 % (11.5-14.5)
[2021-05-28 06:43] LABS: White Blood Count 1.6 K/mm3 (4.5-10.0)
[2021-05-28 06:56] LABS: Anion Gap 4 mmol/L (8-16); Blood Urea Nitrogen 9 mg/dL (9-20); CRP 5.1 mg/dL (<1.0); Calcium 9.1 mg/dL (8.4-10.2); Carbon Dioxide 20 mmol/L (22-30); Chloride 107 mmol/L (98-107); Estimated CRCL calculation 102 ml/min; Estimated Glomerular Filt Rate > 60; Glucose 120 mg/dL (65-110); Potassium 3.8 mmol/L (3.4-5.0); Sodium 131 mmol/L (137-145)
[2021-05-28] MEDS: lisinopriL 20 MG TABLET 40 MG PO (09:40)
[2021-05-28] MEDS: GABAPENTIN 400 MG CAPSULE 1200 MG PO ×3 (09:40→23:10)
[2021-05-28] MEDS: amLODIPine BESYLATE 5 MG TABLET 10 MG PO (09:40)
[2021-05-28] MEDS: TOPIRAMATE 100 MG TABLET 200 MG PO ×2 (09:40→23:11)
[2021-05-28] MEDS: CHOLECALCIFEROL 1,000 UNITS TABLET 2000 UNITS PO (09:40)
[2021-05-28] MEDS: ATORVASTATIN 40 MG TABLET PO (09:41)
[2021-05-28] MEDS: ASPIRIN 81 MG ENTERIC TABLET PO (09:41)
[2021-05-28] MEDS: PANTOPRAZOLE 40 MG TABLET PO ×2 (09:41→23:10)
[2021-05-28 12:02] LABS: Vancomycin Trough 12.8 ug/mL (10.0-20.0)
[2021-05-28] MEDS: ACETAMINOPHEN 325 MG TABLET 650 MG PO ×2 (16:07→23:06)
[2021-05-28] MEDS: traZODone HCL 50 MG TABLET 200 MG PO ×2 (16:08→23:11)
--- NOTE | 2021-05-28 16:46 | PM.IMPN ---
Progress Note: A&P Assessment and Plan (1) COVID-19 virus infection: Code(s): U07.1 - COVID-19 Status: Acute Assessment and Plan: Likely causing his PNA, pancytopenia and fevers -continue supportive care -Pt is not requring o2 at this time -Pts platelets are 62,000 but covid is a hypercoagulable disease. spoke with SP Dr. Otero, will start heparin 5000u BID and monitor for bleeding. Check d-dimer -Tylenol for fevers -pt was vaccinated (2) Pneumonia: Code(s): J18.9 - Pneumonia, unspecified organism Status: Acute Assessment and Plan: As above -abx stopped, cxr stable. PNA is viral (3) Encephalopathy: Code(s): G93.40 - Encephalopathy, unspecified Status: Acute Assessment and Plan: Improved yesterday but worse today -Will obtain stat head CT -Could be due to current fever and COVID -pt is on risperdal, trazodone and and PRN norco (last taken yesterday) -May consider adjusting some of these if his confusion persists. (4) Fever: Code(s): R50.9 - Fever, unspecified Status: Acute Assessment and Plan: likely due to pneumonia -as above (5) Polypharmacy: Code(s): Z79.899 - Other longterm (current) drug therapy Status: Acute Assessment and Plan: patient does not know his doses or all of his medications - EMR states that he takes clonazepam 0.5 mg t.i.d. and [place] 10 mg every 4 hours as well as trazodone. Clonazepman PRN for now since he is confused. -see above (6) Psychiatric illness: Code(s): F99 - Mental disorder, not otherwise specified Status: Acute Assessment and Plan: continue risperidone, gabapentin, Topamax, and trazodone (7) Obstructive sleep apnea: Code(s): G47.33 - Obstructive sleep apnea (adult) (pediatric) Status: Acute Assessment and Plan: continue CPAP once covid neg (8) Tobacco abuse: Code(s): Z72.0 - Tobacco use Status: Acute Assessment and Plan: NICOTINE PATCH NEEDED (9) Essential hypertension: Code(s): I10 - Essential (primary) hypertension Status: Acute Assessment and Plan: blood pressure 122/60 - hold hydralizine and parameters on amlodipine and lisinopril (10) Post traumatic stress disorder: Code(s): F43.10 - Post-traumatic stress disorder, unspecified Status: Acute Assessment and Plan: STABLE FOLLOW-UP IN OUTPATIENT (11) Chronic low back pain: Code(s): M54.5 - Low back pain; G89.29 - Other chronic pain Status: Acute Assessment and Plan: Continue norco (12) Bipolar depression: Code(s): F31.9 - Bipolar disorder, unspecified Status: Acute Assessment and Plan: Continue as above (13) GERD without esophagitis: Code(s): K21.9 - Gastro-esophageal reflux disease without esophagitis Status: Acute (14) Chronic obstructive pulmonary disease: Qualifiers: COPD type: unspecified COPD Qualified Code(s): J44.9 - Chronic obstructive pulmonary disease, unspecified Code(s): J44.9 - Chronic obstructive pulmonary disease, unspecified Status: Chronic Assessment and Plan: CONTINUE with BUDESONIDE AND FORMOTEROL (15) Thrombocytopenia: Code(s): D69.6 - Thrombocytopenia, unspecified Status: Acute Assessment and Plan: Chronic and unchanged -follow up with pcp -avoid lovenox -heparin okay as long as platelets >50,000 according. spoke with SP Dr. Otero. Will monitor for bleeding. (16) Hyponatremia: Code(s): E87.1 - Hypo-osmolality and hyponatremia Status: Acute Assessment and Plan: mild, last sodium 131 - monitor daily labs Subjective Date/time seen: 05/28/21 16:46 Interval history: Pt is a 66 y/o male here for PNA. patient was seen today and is confused. He is unable to answer any of my
[2021-05-28 18:17] LABS: D Dimer 0.58 ug/mL (<0.48)
[2021-05-28] MEDS: clonazePAM (*CRX) 0.5 MG TABLET PO (23:06)
[2021-05-28] MEDS: HEPARIN SODIUM 5,000 UNITS/ML VIAL 5000 UNITS SUB-Q (23:10)
[2021-05-28] MEDS: risperiDONE 1 MG TABLET 4 MG PO (23:11)
[2021-05-29] VITALS (8 sets, daily range): BP systolic 110–136; BP diastolic 49–67; PULSE 69–87; RESP 16–22; TEMP 36.5–37.3; O2SAT 90–95
[2021-05-29] MEDS: HYDROcodone/acetaminophen (*CRX) 10-325 MG TABLET 1 TAB PO ×3 (04:55→17:47)
[2021-05-29 06:44] LABS: Hematocrit 32.6 % (42.0-52.0); Mean Corpuscular HGB Conc 33.7 g/dl (32-36); Mean Corpuscular Hemoglobin 29.6 pg (26-34); Mean Corpuscular Volume 87.9 fl (80-100); Mean Platelet Volume 11.6 fl (7.4-10.4); Platelet Count Result 62 k/mm3 (150-375); Red Blood Count 3.71 M/mm3 (4.6-6.20); Red Cell Distribution Width 12.7 % (11.5-14.5)
[2021-05-29 06:47] LABS: White Blood Count 1.5 K/mm3 (4.5-10.0)
[2021-05-29 07:06] LABS: Alanine Aminotransferase 48 U/L (4-50); Albumin Level 2.9 g/dL (3.5-5.1); Alkaline Phosphatase 89 U/L (38-126); Anion Gap 3 mmol/L (8-16); Aspartate Amino Transferase 78 U/L (17-59); Bilirubin,Total 0.4 mg/dL (0.2-1.3); Blood Urea Nitrogen 9 mg/dL (9-20); CRP 4.3 mg/dL (<1.0); Calcium 9.3 mg/dL (8.4-10.2); Carbon Dioxide 23 mmol/L (22-30); Chloride 107 mmol/L (98-107); Estimated CRCL calculation 102 ml/min; Estimated Glomerular Filt Rate > 60; Glucose 101 mg/dL (65-110); Lactate Dehydrogenase 557 U/L (313-618); Magnesium 1.7 mg/dL (1.6-2.3); Sodium 133 mmol/L (137-145)
[2021-05-29 07:29] LABS: Band Neutrophils Percent 5 % (0-6); Lymphocytes Absolute Manual 0.24 K/mm3 (1.1-4.5); Monocytes Absolute Manual 0.06 K/mm3 (0.1-0.90); Monocytes Percent Manual 4 % (3-9); Neutrophils Percent Manual 75 % (46-73); Total Cells Counted 100
[2021-05-29 07:30] LABS: Atypical Lymphocytes Present; Platelet Estimate Decreased (Adequate)
[2021-05-29] MEDS: TOPIRAMATE 100 MG TABLET 200 MG PO ×2 (08:54→20:19)
[2021-05-29] MEDS: amLODIPine BESYLATE 5 MG TABLET 10 MG PO (08:54)
[2021-05-29] MEDS: GABAPENTIN 400 MG CAPSULE 1200 MG PO ×3 (08:54→20:19)
[2021-05-29] MEDS: CHOLECALCIFEROL 1,000 UNITS TABLET 2000 UNITS PO (08:54)
[2021-05-29] MEDS: ASPIRIN 81 MG ENTERIC TABLET PO (08:55)
[2021-05-29] MEDS: PANTOPRAZOLE 40 MG TABLET PO ×2 (08:55→20:20)
[2021-05-29] MEDS: HEPARIN SODIUM 5,000 UNITS/ML VIAL 5000 UNITS SUB-Q ×2 (08:55→20:20)
[2021-05-29] MEDS: ATORVASTATIN 40 MG TABLET PO (08:55)
[2021-05-29] MEDS: lisinopriL 20 MG TABLET 40 MG PO (08:55)
--- NOTE | 2021-05-29 09:01 | P.CDI_ITS ---
CDI Query Clarification Request -Encephalopathy, unspecified and could be due to current fever and COVID has been documented -Patient confused and unable to answer questions has been documented Please further clarify type of encephalopathy: * Metabolic * Toxic * Hypertensive * Anoxic * Hepatic * Other * Unable to determine
[2021-05-29] MEDS: BUDESONIDE/FORMOTEROL (*SP) 160-4.5 MCG 6 GM INH 2 PUFF INHALATION ×2 (09:55→20:38)
--- NOTE | 2021-05-29 13:54 | PCOTNOTE ---
Attempted to see patient this pm, however patient declined stating, No! Not today. Pt reported being cold and not feeling well. Adjusted room thermostat, assisted patient with re-positioning in bed, and covered patient with blanket. Thank you. That's much better. Pt still declined ADLs and exercise at this time.
--- NOTE | 2021-05-29 16:13 | PM.IMPN ---
Progress Note: A&P Assessment and Plan (1) COVID-19 virus infection: Code(s): U07.1 - COVID-19 Status: Acute Assessment and Plan: Likely causing his PNA, pancytopenia and fevers -continue supportive care -Pt is not requiring o2 at this time -Pts platelets are 62,000 but covid is a hypercoagulable disease. spoke with SP Dr. Otero, continue heparin 5000u BID and monitor for bleeding. d-dimer mildly elevated and likely due to covid. -Tylenol for fevers -pt was vaccinated (2) Pneumonia: Code(s): J18.9 - Pneumonia, unspecified organism Status: Acute Assessment and Plan: As above -abx stopped, cxr stable. PNA is viral (3) Encephalopathy: Code(s): G93.40 - Encephalopathy, unspecified Status: Acute Assessment and Plan: Waxes and wanes. Today he is better this afternoon but still not sure the year or president and on the first day I met him he was A&ox4 -head CT with no acute stroke yesterday, no neurological deficits on exam today. speech clear -More confused yesterday while he was febrile. -pt is on risperdal, klonopin, trazodone and and PRN norco. Poly pharmacy is likely worsening this. I have changed klonopin to daily instead of TID. I have decreased his trazodone to HS and his norco is PRN (last dose this morning). -monitor on this regimen. 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 I have changed klonopin to daily instead of his home TID. I have decreased his trazodone to HS and his norco is PRN (last dose this morning). -monitor on this regimen. (6) Psychiatric illness: Code(s): F99 - Mental disorder, not otherwise specified Status: Acute Assessment and Plan: continue risperidone, gabapentin, Topamax, and trazodone (7) Obstructive sleep apnea: Code(s): G47.33 - Obstructive sleep apnea (adult) (pediatric) Status: Acute Assessment and Plan: Abg looks on on admission, will recheck tomorrow am to ensure this is not causing his Intermittent confusion (8) Tobacco abuse: Code(s): Z72.0 - Tobacco use Status: Acute Assessment and Plan: NICOTINE PATCH NEEDED (9) Essential hypertension: Code(s): I10 - Essential (primary) hypertension Status: Acute Assessment and Plan: blood pressure 136/59 - hold hydralizine and parameters on amlodipine and lisinopril (10) Post traumatic stress disorder: Code(s): F43.10 - Post-traumatic stress disorder, unspecified Status: Acute Assessment and Plan: STABLE FOLLOW-UP IN OUTPATIENT (11) Chronic low back pain: Code(s): M54.5 - Low back pain; G89.29 - Other chronic pain Status: Acute Assessment and Plan: Continue norco PRN (12) Bipolar depression: Code(s): F31.9 - Bipolar disorder, unspecified Status: Acute Assessment and Plan: stable -continue medications as above (13) GERD without esophagitis: Code(s): K21.9 - Gastro-esophageal reflux disease without esophagitis Status: Acute (14) Chronic obstructive pulmonary disease: Qualifiers: COPD type: unspecified COPD Qualified Code(s): J44.9 - Chronic obstructive pulmonary disease, unspecified Code(s): J44.9 - Chronic obstructive pulmonary disease, unspecified Status: Chronic Assessment and Plan: CONTINUE with BUDESONIDE AND FORMOTEROL (15) Thrombocytopenia: Code(s): D69.6 - Thrombocytopenia, unspecified Status: Acute Assessment and Plan: Chronic and unchanged -
[2021-05-29] MEDS: traZODone HCL 50 MG TABLET 200 MG PO (20:19)
[2021-05-29] MEDS: risperiDONE 1 MG TABLET 4 MG PO (20:19)
[2021-05-30] VITALS (11 sets, daily range): BP systolic 117–163; BP diastolic 49–69; PULSE 71–87; RESP 14–22; TEMP 36.4–38; O2SAT 91–97
[2021-05-30 05:27] LABS: Alveolar/Arterial O2 Gradient 66.6 mmHg; Base Excess ABG -2.7 mEq/l (+/-2.0); Carboxyhemoglobin 0.1 % THb (0-2.0); Fractional Inspired Oxygen 21 %; HCO3 ABG 22.7 mEq/l (22.0-26.0); Methemoglobin ABG 0.4 %THb (0-1.5); Oxygen Content ABG 11.7 %vol (16.0-22.0); Oxyhemoglobin 68.2 % THb (90.0-100.0); PCO2 ABG 41.3 mmHg (35.0-45.0); Reduced Hemoglobin 31.3 %THb (0-5.0); Total Hemoglobin 12.2 g/dL (12.0-18.0); pH ABG 7.357 (7.350-7.450)
[2021-05-30 05:33] LABS: PO2 ABG 33.7 mmHg (80.0-100.0)
[2021-05-30 05:35] LABS: Oxygen Saturation ABG 62.2 % (95.0-100.0); Site Drawn RIGHT RADIAL
[2021-05-30 05:36] LABS: Device ROOM AIR; Modified Allen's Test Pass
[2021-05-30] MEDS: clonazePAM (*CRX) 0.5 MG TABLET PO (08:50)
[2021-05-30] MEDS: amLODIPine BESYLATE 5 MG TABLET 10 MG PO (08:50)
[2021-05-30] MEDS: ASPIRIN 81 MG ENTERIC TABLET PO (08:50)
[2021-05-30] MEDS: GABAPENTIN 400 MG CAPSULE 1200 MG PO ×3 (08:51→20:24)
[2021-05-30] MEDS: PANTOPRAZOLE 40 MG TABLET PO ×2 (08:51→20:23)
[2021-05-30] MEDS: CHOLECALCIFEROL 1,000 UNITS TABLET 2000 UNITS PO (08:51)
[2021-05-30] MEDS: TOPIRAMATE 100 MG TABLET 200 MG PO ×2 (08:51→20:24)
[2021-05-30] MEDS: ATORVASTATIN 40 MG TABLET PO (08:51)
[2021-05-30] MEDS: lisinopriL 20 MG TABLET 40 MG PO (08:51)
[2021-05-30] MEDS: HEPARIN SODIUM 5,000 UNITS/ML VIAL 5000 UNITS SUB-Q ×2 (08:52→20:23)
[2021-05-30 09:03] LABS: Hematocrit 33.3 % (42.0-52.0); Hemoglobin 11.1 g/dL (14.0-18.0); Lymphocytes Absolute Auto 0.49 K/mm3 (0.9-3.2); Lymphocytes Percent Auto 24.4 % (18.3-44.2); Mean Corpuscular HGB Conc 33.3 g/dl (32-36); Mean Corpuscular Hemoglobin 29.4 pg (26-34); Mean Corpuscular Volume 88.1 fl (80-100); Mean Platelet Volume 11.4 fl (7.4-10.4); Monocytes Absolute Auto 0.1 K/mm3 (0.1-0.6); Neutrophils Absolute Auto 1.4 K/mm3 (1.3-6.7); Neutrophils Percent Auto 68.6 % (45.5-73.1); Platelet Count Result 72 k/mm3 (150-375); Red Blood Count 3.78 M/mm3 (4.6-6.20); Red Cell Distribution Width 12.9 % (11.5-14.5)
[2021-05-30 09:10] LABS: Alanine Aminotransferase 70 U/L (4-50); Albumin Level 3.3 g/dL (3.5-5.1); Alkaline Phosphatase 92 U/L (38-126); Anion Gap 6 mmol/L (8-16); Aspartate Amino Transferase 81 U/L (17-59); Bilirubin,Total 0.4 mg/dL (0.2-1.3); Blood Urea Nitrogen 12 mg/dL (9-20); CRP 5.3 mg/dL (<1.0); Calcium 9.8 mg/dL (8.4-10.2); Carbon Dioxide 21 mmol/L (22-30); Chloride 106 mmol/L (98-107); Estimated CRCL calculation 102 ml/min; Estimated Glomerular Filt Rate > 60; Glucose 105 mg/dL (65-110); Sodium 133 mmol/L (137-145)
[2021-05-30] MEDS: BUDESONIDE/FORMOTEROL (*SP) 160-4.5 MCG 6 GM INH 2 PUFF INHALATION ×2 (09:35→21:59)
[2021-05-30 09:36] LABS: Procalcitonin 0.1 ng/mL
[2021-05-30] MEDS: HYDROcodone/acetaminophen (*CRX) 10-325 MG TABLET 1 TAB PO (10:01)
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
[2021-05-30] MEDS: ACETAMINOPHEN 325 MG TABLET 650 MG PO (17:30)
[2021-05-30] MEDS: risperiDONE 1 MG TABLET 4 MG PO (20:23)
[2021-05-30] MEDS: traZODone HCL 50 MG TABLET 200 MG PO (20:24)
[2021-05-31] VITALS (7 sets, daily range): BP systolic 101–138; BP diastolic 53–75; PULSE 75–87; RESP 16–20; TEMP 36.3–37.8; O2SAT 86–93
[2021-05-31 08:03] LABS: Hematocrit 33.9 % (42.0-52.0); Hemoglobin 11.2 g/dL (14.0-18.0); Immature Granulocyte Absolute 0.02 K/mm3 (0.00-0.031); Immature Granulocyte Percent A 0.9 % (0-0.5); Immature Platelet Fraction Pct 5.9 % (0.9-11.2); Lymphocytes Absolute Auto 0.49 K/mm3 (0.9-3.2); Lymphocytes Percent Auto 21.7 % (18.3-44.2); Mean Corpuscular Hemoglobin 29.4 pg (26-34); Mean Platelet Volume 11.1 fl (7.4-10.4); Monocytes Absolute Auto 0.2 K/mm3 (0.1-0.6); Monocytes Percent Auto 7.1 % (2.6-8.5); Neutrophils Absolute Auto 1.6 K/mm3 (1.3-6.7); Neutrophils Percent Auto 70.3 % (45.5-73.1); Platelet Count Result 93 k/mm3 (150-375); Red Blood Count 3.81 M/mm3 (4.6-6.20); Red Cell Distribution Width 12.9 % (11.5-14.5); White Blood Count 2.3 K/mm3 (4.5-10.0)
[2021-05-31 08:11] LABS: Alanine Aminotransferase 83 U/L (4-50); Albumin Level 3.2 g/dL (3.5-5.1); Alkaline Phosphatase 98 U/L (38-126); Anion Gap 8 mmol/L (8-16); Aspartate Amino Transferase 88 U/L (17-59); Bilirubin,Total 0.4 mg/dL (0.2-1.3); Blood Urea Nitrogen 13 mg/dL (9-20); Calcium 9.7 mg/dL (8.4-10.2); Carbon Dioxide 20 mmol/L (22-30); Chloride 102 mmol/L (98-107); Estimated CRCL calculation 90 ml/min; Estimated Glomerular Filt Rate > 60; Glucose 99 mg/dL (65-110); Potassium 3.9 mmol/L (3.4-5.0); Sodium 130 mmol/L (137-145)
[2021-05-31 09:19] LABS: Prothrombin Time 13.1 Seconds (11.1-14.7)
[2021-05-31] MEDS: BUDESONIDE/FORMOTEROL (*SP) 160-4.5 MCG 6 GM INH 2 PUFF INHALATION ×2 (09:27→21:01)
[2021-05-31] MEDS: HYDROcodone/acetaminophen (*CRX) 10-325 MG TABLET 1 TAB PO ×2 (09:44→20:34)
[2021-05-31] MEDS: amLODIPine BESYLATE 5 MG TABLET 10 MG PO (09:45)
[2021-05-31] MEDS: GABAPENTIN 400 MG CAPSULE 1200 MG PO ×3 (09:45→20:39)
[2021-05-31] MEDS: ATORVASTATIN 40 MG TABLET PO (09:45)
[2021-05-31] MEDS: clonazePAM (*CRX) 0.5 MG TABLET PO (09:45)
[2021-05-31] MEDS: HEPARIN SODIUM 5,000 UNITS/ML VIAL 5000 UNITS SUB-Q ×2 (09:46→20:39)
[2021-05-31] MEDS: lisinopriL 20 MG TABLET 40 MG PO (09:46)
[2021-05-31] MEDS: ASPIRIN 81 MG ENTERIC TABLET PO (09:46)
[2021-05-31] MEDS: PANTOPRAZOLE 40 MG TABLET PO ×2 (09:46→20:38)
[2021-05-31] MEDS: TOPIRAMATE 100 MG TABLET 200 MG PO ×2 (09:47→20:38)
[2021-05-31] MEDS: CHOLECALCIFEROL 1,000 UNITS TABLET 2000 UNITS PO (09:47)
[2021-05-31 10:02] LABS: Large Platelets Present; Ovalocytes 1+ (NORMAL); Platelet Estimate Decreased (Adequate); Poikilocytosis 1+ (NORMAL)
[2021-05-31] MEDS: REMDESIVIR 200 MG/NS 250 ML 200 MG/250 ML BAG 250 MG IVPB (11:48)
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
[2021-05-31] MEDS: risperiDONE 1 MG TABLET 4 MG PO (20:38)
[2021-05-31] MEDS: traZODone HCL 50 MG TABLET 200 MG PO (20:41)
[2021-05-31] MEDS: ALBUTEROL SULFATE (*SP) AEROSOL 1 PUFF INHALATION (21:01)
[2021-06-01] VITALS (13 sets, daily range): BP systolic 101–134; BP diastolic 67–75; PULSE 64–90; RESP 14–22; TEMP 36.2–37; O2SAT 89–97
[2021-06-01] MEDS: ALBUTEROL SULFATE (*SP) AEROSOL 1 PUFF INHALATION ×3 (02:54→15:11)
[2021-06-01] MEDS: HYDROcodone/acetaminophen (*CRX) 10-325 MG TABLET 1 TAB PO (06:26)
[2021-06-01 07:53] LABS: Hematocrit 34.6 % (42.0-52.0); Hemoglobin 11.4 g/dL (14.0-18.0); Immature Platelet Fraction Pct 4.2 % (0.9-11.2); Mean Corpuscular HGB Conc 32.9 g/dl (32-36); Mean Corpuscular Hemoglobin 29.4 pg (26-34); Mean Corpuscular Volume 89.2 fl (80-100); Mean Platelet Volume 10.4 fl (7.4-10.4); Platelet Count Result 115 k/mm3 (150-375); Red Blood Count 3.88 M/mm3 (4.6-6.20); Red Cell Distribution Width 12.7 % (11.5-14.5); White Blood Count 2.3 K/mm3 (4.5-10.0)
[2021-06-01 08:05] LABS: Alanine Aminotransferase 133 U/L (4-50); Alkaline Phosphatase 108 U/L (38-126); Anion Gap 6 mmol/L (8-16); Aspartate Amino Transferase 135 U/L (17-59); Bilirubin,Total 0.4 mg/dL (0.2-1.3); Blood Urea Nitrogen 17 mg/dL (9-20); Carbon Dioxide 19 mmol/L (22-30); Chloride 110 mmol/L (98-107); Estimated CRCL calculation 102 ml/min; Estimated Glomerular Filt Rate > 60; Glucose 111 mg/dL (65-110); Sodium 135 mmol/L (137-145)
[2021-06-01] MEDS: ASPIRIN 81 MG ENTERIC TABLET PO (08:26)
[2021-06-01] MEDS: clonazePAM (*CRX) 0.5 MG TABLET PO (08:26)
[2021-06-01] MEDS: TOPIRAMATE 100 MG TABLET 200 MG PO (08:27)
[2021-06-01] MEDS: GABAPENTIN 400 MG CAPSULE 1200 MG PO (08:27)
[2021-06-01] MEDS: PANTOPRAZOLE 40 MG TABLET PO (08:27)
[2021-06-01] MEDS: CHOLECALCIFEROL 1,000 UNITS TABLET 2000 UNITS PO (08:27)
[2021-06-01] MEDS: ATORVASTATIN 40 MG TABLET PO (08:28)
[2021-06-01] MEDS: HEPARIN SODIUM 5,000 UNITS/ML VIAL 5000 UNITS SUB-Q (08:28)
[2021-06-01 08:35] LABS: INR 1.1; Prothrombin Time 14.1 Seconds (11.1-14.7)
[2021-06-01] MEDS: BUDESONIDE/FORMOTEROL (*SP) 160-4.5 MCG 6 GM INH 2 PUFF INHALATION (09:04)
[2021-06-01] MEDS: REMDESIVIR 100 MG/NS 250 ML 100 MG/250 ML BAG 250 MG IVPB (10:59)
--- NOTE | 2021-06-01 13:47 | PCRCNOTE ---
HOME O2 EVAL DONE, NO HOME O2 NEEDED. TRANSFERRED FROM CHAIR TO BED WITH CIRCULAR [employer]W [employer] FUSER
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
--- NOTE | 2021-06-04 13:33 | PC.NURSE ---
Blood cx are negative.
== END 2021-06-01 16:23 | disposition home health service (06) | DRG 871 ==
LOC: ANHED 05-27 00:52 → ANH3MEDSUR 05-27 07:07
PROVIDERS: Admitting Provider Internal Medicine; Emergency Provider Emergency Medicine; PCP Family Medicine; Visit Provider Physician Assistant
DX: A41.89 Other specified sepsis (principal); U07.1 COVID-19; J12.82 Pneumonia due to coronavirus disease 2019; G93.40 Encephalopathy, unspecified; E87.1 Hypo-osmolality and hyponatremia; F31.9 Bipolar disorder, unspecified; M54.5 Low back pain; J44.9 Chronic obstructive pulmonary disease, unspecified; G47.33 Obstructive sleep apnea (adult) (pediatric); I10 Essential (primary) hypertension; F43.10 Post-traumatic stress disorder, unspecified; K21.9 Gastro-esophageal reflux disease without esophagitis; D69.6 Thrombocytopenia, unspecified
CPT/HCPCS: 36415; 36600; 70450; 71045; 71046; 80048; 80053; 80076; 80202; 81001; 82375; 82607; 82728; 82746; 82805; 83050; 83605; 83615; 83735; 84145; 85025; 85027; 85055; 85380; 85610; 86140; 87040; 87804; 93005; 94618; 94640; 96365; 96375; 96376; 97110; 97161; 97165; 97530; 99285; A9270; C9803; J0456; J0692; J0696; J1100; J1644; J2310; J3370; J7120; U0003; U0005

== ENCOUNTER 2021-11-07 11:49 | Emergency (ER) | payer MEDICARE, SELFPAY ==
[2021-11-07 11:58] VITALS: BP 107/54; PULSE 84; RESP 16; TEMP 36.6; O2SAT 96
--- NOTE | 2021-11-07 14:18 | PC.NURSE ---
Pt states he wants to leave and called for a ride. IV removed from EMS per pt request
[2021-11-07 14:25] VITALS: BP 97/53; PULSE 73; RESP 19; TEMP 36.4; O2SAT 96
--- NOTE | 2021-11-07 14:40 | PC.NURSE ---
patient called family to come pick him up. patients [id number] took patient home in private car
== END 2021-11-08 03:07 | disposition left against medical advice (07) ==
DX: R41.82 Altered mental status, unspecified (principal)
CPT/HCPCS: 99199

== ENCOUNTER 2022-06-02 11:48 | Outpatient (CLI) | payer MEDICARE, SELFPAY ==
[2022-06-02 19:23] LABS: Basophils Percent Auto 0.5 % (0.2-1.2); Eosinophils Percent Auto 1.1 % (0-4.4); Hemoglobin 13.1 g/dL (14.0-18.0); Immature Granulocyte Absolute 0.01 K/mm3 (0.00-0.031); Immature Granulocyte Percent A 0.3 % (0-0.5); Immature Platelet Fraction Pct 13.4 % (0.9-11.2); Lymphocytes Absolute Auto 1.04 K/mm3 (0.9-3.2); Lymphocytes Percent Auto 28.3 % (18.3-44.2); Mean Corpuscular HGB Conc 30.5 g/dl (32-36); Mean Corpuscular Hemoglobin 28.7 pg (26-34); Mean Corpuscular Volume 94.1 fl (80-100); Mean Platelet Volume 13.5 fl (7.4-10.4); Monocytes Absolute Auto 0.2 K/mm3 (0.1-0.6); Monocytes Percent Auto 5.2 % (2.6-8.5); Neutrophils Absolute Auto 2.4 K/mm3 (1.3-6.7); Neutrophils Percent Auto 64.6 % (45.5-73.1); Platelet Count Result 92 k/mm3 (150-375); Red Blood Count 4.57 M/mm3 (4.6-6.20); Red Cell Distribution Width 14.5 % (11.5-14.5); White Blood Count 3.7 K/mm3 (4.5-10.0)
[2022-06-02 19:53] LABS: Alanine Aminotransferase 13 U/L (6-50); Albumin Level 4.1 g/dL (3.5-5.1); Alkaline Phosphatase 71 U/L (38-126); Anion Gap 8 mmol/L (8-16); Aspartate Amino Transferase 25 U/L (17-59); Bilirubin,Total 0.6 mg/dL (0.2-1.3); Blood Urea Nitrogen 23 mg/dL (9-20); Calcium 10.2 mg/dL (8.4-10.2); Carbon Dioxide 24 mmol/L (22-30); Chloride 108 mmol/L (98-107); Cholesterol 129 mg/dL (0-200); Estimated Glomerular Filt Rate > 60; Glucose 85 mg/dL (65-110); HDL Direct 56 mg/dL; Potassium 3.9 mmol/L (3.4-5.0); Sodium 140 mmol/L (137-145); Triglycerides 69 mg/dL (<150)
[2022-06-02 19:58] LABS: MALB Creatinine Ratio 23.2 mg/g (0-30); Microalbumin Urine Random 42.2 mg/L (0-16.7)
[2022-06-02 20:04] LABS: LDL Cholesterol Direct 45 mg/dL
[2022-06-02 20:12] LABS: Appearance Urine Clear (Clear); Bilirubin Urine 1+ (Negative); Blood Urine 3+ (Negative); Color Urine Yellow (Yellow); Glucose Urine UA Negative (Negative); Ketones Urine 1+ mg/dL (Negative); Leukocyte Esterase Ur Negative LEU/UL (Negative); Nitrate Urine Negative (Negative); Protein Urine Trace mg/dL (Negative); Specific Grav Ur 1.025 (1.001-1.035)
[2022-06-02 20:18] LABS: Vitamin D 25 Hydroxy 74.5 ng/mL
[2022-06-02 20:30] LABS: Hemoglobin A1C 4.9 % (<5.7)
[2022-06-02 20:32] LABS: Thyroid Stimulating Hormone Reflex 0.855 uIU/mL (0.465-4.68)
[2022-06-02 20:40] LABS: Bacteria Urine Trace /hpf; Calcium Oxalate Crystals Urine Present /hpf; Mucus Urine Few /lpf; RBC Urine >75 /hpf (0-2); Squamous Epithelial Cell Urine Occasional /hpf (Few); WBC Urine 0-3 /hpf
[2022-06-02 20:46] LABS: Add Urine Microscopic? YES
== END 2022-06-02 11:49 | disposition home or self-care (01) ==
LOC: ANHGOSHLAB 11:52
PROVIDERS: PCP Family Medicine; Visit Provider Family Medicine
DX: F43.10 Post-traumatic stress disorder, unspecified (principal); D61.818 Other pancytopenia; G62.9 Polyneuropathy, unspecified; F31.9 Bipolar disorder, unspecified; E55.9 Vitamin D deficiency, unspecified; E53.8 Deficiency of other specified B group vitamins; I10 Essential (primary) hypertension; E11.9 Type 2 diabetes mellitus without complications; E78.5 Hyperlipidemia, unspecified; Z12.5 Encounter for screening for malignant neoplasm of prostate
CPT/HCPCS: 36415; 80053; 80061; 81001; 82043; 82306; 82607; 83036; 84443; 85025; 85055

== ENCOUNTER 2023-06-13 14:30 | Outpatient (CLI) | payer MEDICARE, SELFPAY ==
[2023-06-13 18:11] LABS: Basophils Percent Auto 0.3 % (0.2-1.2); Eosinophils Percent Auto 0.3 % (0-4.4); Hematocrit 41.5 % (42.0-52.0); Hemoglobin 13.1 g/dL (14.0-18.0); Immature Granulocyte Absolute 0.01 K/mm3 (0.00-0.031); Immature Granulocyte Percent A 0.3 % (0-0.5); Immature Platelet Fraction Pct 11.5 % (0.9-11.2); Lymphocytes Absolute Auto 0.65 K/mm3 (0.9-3.2); Lymphocytes Percent Auto 20.8 % (18.3-44.2); Mean Corpuscular HGB Conc 31.6 g/dl (32-36); Mean Corpuscular Hemoglobin 28.8 pg (26-34); Mean Corpuscular Volume 91.2 fl (80-100); Monocytes Absolute Auto 0.2 K/mm3 (0.1-0.6); Monocytes Percent Auto 5.1 % (2.6-8.5); Neutrophils Absolute Auto 2.3 K/mm3 (1.3-6.7); Neutrophils Percent Auto 73.2 % (45.5-73.1); Platelet Count Result 90 k/mm3 (150-375); Red Blood Count 4.55 M/mm3 (4.6-6.20); Red Cell Distribution Width 13.5 % (11.5-14.5); White Blood Count 3.1 K/mm3 (4.5-10.0)
[2023-06-13 18:42] LABS: Alanine Aminotransferase 23 U/L (6-50); Alkaline Phosphatase 96 U/L (38-126); Anion Gap 4 mmol/L (8-16); Aspartate Amino Transferase 22 U/L (17-59); Bilirubin,Total 0.4 mg/dL (0.2-1.3); Blood Urea Nitrogen 11 mg/dL (9-20); Calcium 9.8 mg/dL (8.4-10.2); Carbon Dioxide 29 mmol/L (22-30); Chloride 105 mmol/L (98-107); Estimated Glomerular Filt Rate > 60; Glucose 126 mg/dL (65-110); Potassium 3.9 mmol/L (3.4-5.0); Sodium 138 mmol/L (137-145)
[2023-06-13 19:14] LABS: Hypochromasia 1+ (NORMAL); Platelet Estimate Decreased (Adequate); Schistocytes None Seen (NORMAL)
== END 2023-06-13 14:31 | disposition home or self-care (01) ==
LOC: ANHGOSHLAB 14:32
PROVIDERS: PCP Family Medicine; Visit Provider Family Medicine
DX: D61.818 Other pancytopenia (principal); I10 Essential (primary) hypertension; Z79.899 Other long term (current) drug therapy
CPT/HCPCS: 36415; 80053; 85025; 85055

== ENCOUNTER 2024-03-17 16:45 | Emergency (ER) | payer MEDICARE, SELFPAY ==
--- NOTE | ~2024-03-17 | XR_ITS ---
Portable chest x-ray Comparison: 05/31/2021 Clinical History: Dizziness Findings: Suspected minimal right pleural effusion. Possible minimal central congestive change. Car diomediastinal silhouette is stable. Bones and soft tissues are unremarkable. Impression: Minimal right pleural effusion and possible minimal central congestive change. Reviewed, dictated and finalized at [facility]. Impression: Minimal right pleural effusion and possible minimal central congestive change.
[2024-03-17 16:38] VITALS: BP 113/69; PULSE 59; RESP 16; TEMP 36.4; O2SAT 97
--- NOTE | 2024-03-17 16:51 | ECG_ITS ---
SEE SCANNED COPY FOR CONFIRMED REPORT MTDD
--- NOTE | 2024-03-17 16:53 | ED.DIZZY ---
HPI - Dizziness General Chief Complaint: Dizziness Stated Complaint: dizzy spell Time Seen by Provider: 03/17/24 16:48 History of Present Illness HPI Narrative: Patient is a 68-year-old male who presents to the emergency department this afternoon complaining of lightheadedness. Patient states that he had an episode prior to arrival and his caregiver at home checked his blood pressure and found to be 80/60 mmHg. When patient also described the symptoms, he describes a lightheadedness, near syncopal episode rather than room spinning dizziness sensation. Patient admits that he has not been drinking enough water. EMS did administer some IV fluids with improvement of his blood pressure. Patient's blood pressure in triage was noted to be 113/69 mmHg. Patient currently states that he no longer lightheadedness and feels. He is currently denying any symptoms including any headaches, light headedness, dizziness or room spinning sensation, focal weakness, numbness and tingling. Patient also denies any fevers or chills at home. He has no further symptoms or concerns at this time. Related Data Home Medications Medication Instructions Recorded Confirmed albuterol sulfate 90 mcg/actuation 1 inh inhalation Q4H PRN Shortness 11/20/20 01/26/24 aerosol inhaler Of Breath aspirin 81 mg tablet,delayed 81 mg PO DAILY 11/20/20 01/26/24 release (Adult Low Dose Aspirin) atorvastatin 80 mg tablet 40 mg PO DAILY 11/20/20 01/26/24 cholecalciferol (vitamin D3) 50 50 mcg PO DAILY 11/20/20 06/13/23 mcg (2,000 unit) capsule clonazepam 0.5 mg tablet 0.5 mg PO TID 11/20/20 06/13/23 lisinopril 40 mg tablet 40 mg PO DAILY 11/20/20 01/26/24 miconazole nitrate 2 % topical 1 spray topical DAILY PRN Rash 11/20/20 06/13/23 spray powder omeprazole 40 mg capsule,delayed 40 mg PO DAILY 11/20/20 01/26/24 release risperidone 4 mg tablet 4 mg PO HS 11/20/20 06/13/23 trazodone 100 mg tablet 200 mg PO 1800,2100 11/20/20 01/26/24 gabapentin 600 mg tablet 1,200 mg PO TID 03/20/21 01/26/24 tiotropium bromide 2.5 2 puff inhalation DAILY 03/20/21 01/26/24 mcg/actuation mist for inhalation (Spiriva Respimat) topiramate 100 mg tablet 200 mg PO BID 05/07/21 01/26/24 diclofenac sodium 50 mg 50 mg PO BID 12/02/21 01/26/24 tablet,delayed release temazepam 15 mg capsule 15 mg PO QHS PRN 12/02/21 01/26/24 duloxetine 30 mg capsule,delayed 30 mg PO DAILY 06/02/22 01/26/24 release acetaminophen 500 mg capsule 500 mg PO Q6H PRN 01/26/24 01/26/24 carboxymethylcellulose sodium 1 % 1 drp EACH EYE QID 01/26/24 01/26/24 eye liquid gel drops fluticasone 250 mcg-salmeterol 50 1 inh inhalation BID 01/26/24 01/26/24 mcg/dose blistr powdr for inhalation mecobalamin (vitamin B12) 1,000 1,000 mcg sublingual DAILY 01/26/24 01/26/24 mcg disintegrating tablet,sublingual melatonin 3 mg capsule 3 mg PO QHS 01/26/24 01/26/24 methylprednisolone 4 mg tablet 4 mg PO DAILY 01/26/24 01/26/24 mirtazapine 30 mg tablet 15 mg PO QHS 01/26/24 01/26/24 Allergies Allergy/AdvReac Type Severity Reaction Status Date / Time rabies vaccine, human Allergy Swelling Verified 01/26/24 13:00 diploid cell Review of Systems Review of Systems: All systems are reviewed and are negative unless stated otherwise in the HPI. [facility] Past Medical History Medical History Anxiety Bipolar depression Chronic low back pain Chronic obstructive pulmonary disease COVID-19 virus infection 05/2021 Diabetic peripheral neuropathy Dyslipidemia GERD without esophagitis History of renal calculi Insomnia Obstructive sleep apnea No longer using CPAP after losing a reported 200 lbs. Osteoarthritis Post traumatic stress disorder Tobacco abuse Type 2 diabetes mellitus with other specified complication Vitamin D deficiency Surgical History Surgical History H/O lithotripsy (~04/2023)
[2024-03-17 17:06] LABS: Basophils Percent Auto 0.3 % (0.2-1.2); Eosinophils Absolute Auto 0.1 K/mm3 (0-0.3); Eosinophils Percent Auto 1.7 % (0-4.4); Hematocrit 35.4 % (42.0-52.0); Hemoglobin 11.2 g/dL (14.0-18.0); Immature Granulocyte Absolute 0.01 K/mm3 (0.00-0.031); Immature Granulocyte Percent A 0.3 % (0-0.5); Immature Platelet Fraction Pct 7.1 % (0.9-11.2); Lymphocytes Absolute Auto 0.87 K/mm3 (0.9-3.2); Mean Corpuscular HGB Conc 31.6 g/dl (32-36); Mean Corpuscular Hemoglobin 30.4 pg (26-34); Mean Corpuscular Volume 96.2 fl (80-100); Mean Platelet Volume 11.9 fl (7.4-10.4); Monocytes Absolute Auto 0.2 K/mm3 (0.1-0.6); Monocytes Percent Auto 5.7 % (2.6-8.5); Neutrophils Absolute Auto 2.3 K/mm3 (1.3-6.7); Platelet Count Result 85 k/mm3 (150-375); Red Blood Count 3.68 M/mm3 (4.6-6.20); Red Cell Distribution Width 13.2 % (11.5-14.5); White Blood Count 3.5 K/mm3 (4.5-10.0)
[2024-03-17 17:23] LABS: Alanine Aminotransferase 16 U/L (6-50); Albumin Level 3.3 g/dL (3.5-5.1); Alkaline Phosphatase 68 U/L (38-126); Anion Gap 5 mmol/L (4-12); Aspartate Amino Transferase 18 U/L (17-59); Bilirubin,Total 0.4 mg/dL (0.2-1.3); Blood Urea Nitrogen 20 mg/dL (9-20); Calcium 9.4 mg/dL (8.4-10.2); Carbon Dioxide 21 mmol/L (22-30); Chloride 113 mmol/L (98-107); Estimated CRCL calculation 56 ml/min; Estimated Glomerular Filt Rate > 60; Glucose 116 mg/dL (65-110); Sodium 139 mmol/L (137-145)
[2024-03-17 18:20] VITALS: BP 113/70; PULSE 61; RESP 16; O2SAT 99
== END 2024-03-17 18:24 | disposition home or self-care (01) ==
PROVIDERS: Emergency Provider Emergency Medicine; PCP Family Medicine
DX: R55 Syncope and collapse (principal); J44.9 Chronic obstructive pulmonary disease, unspecified; E11.42 Type 2 diabetes mellitus with diabetic polyneuropathy; E78.5 Hyperlipidemia, unspecified; E55.9 Vitamin D deficiency, unspecified; K21.9 Gastro-esophageal reflux disease without esophagitis; M19.90 Unspecified osteoarthritis, unspecified site; F41.9 Anxiety disorder, unspecified; F31.9 Bipolar disorder, unspecified; F43.10 Post-traumatic stress disorder, unspecified; F17.210 Nicotine dependence, cigarettes, uncomplicated; Z96.652 Presence of left artificial knee joint; Z86.16 Personal history of COVID-19; Z87.442 Personal history of urinary calculi; Z79.899 Other long term (current) drug therapy; Z79.82 Long term (current) use of aspirin; R00.1 Bradycardia, unspecified; I44.0 Atrioventricular block, first degree; R94.31 Abnormal electrocardiogram [ECG] [EKG]
CPT/HCPCS: 36415; 71045; 80053; 83735; 85025; 85055; 93005; 99283

== ENCOUNTER 2024-06-15 15:40 | Emergency (ER) | payer MEDICARE, SELFPAY ==
[2024-06-15 15:59] VITALS: BP 132/71; PULSE 72; RESP 16; TEMP 36.5; O2SAT 96
[2024-06-15 16:45] VITALS: BP 136/85; PULSE 63; RESP 16; O2SAT 97
[2024-06-15 16:47] LABS: Basophils Percent Auto 0.2 % (0.2-1.2); Eosinophils Absolute Auto 0.1 K/mm3 (0-0.3); Eosinophils Percent Auto 1.5 % (0-4.4); Hematocrit 37.2 % (42.0-52.0); Hemoglobin 12.3 g/dL (14.0-18.0); Immature Granulocyte Absolute 0.01 K/mm3 (0.00-0.031); Immature Granulocyte Percent A 0.2 % (0-0.5); Lymphocytes Absolute Auto 0.93 K/mm3 (0.9-3.2); Mean Corpuscular HGB Conc 33.1 g/dl (32-36); Mean Corpuscular Hemoglobin 30.4 pg (26-34); Mean Corpuscular Volume 91.9 fl (80-100); Mean Platelet Volume 12.4 fl (7.4-10.4); Monocytes Absolute Auto 0.3 K/mm3 (0.1-0.6); Monocytes Percent Auto 6.7 % (2.6-8.5); Neutrophils Absolute Auto 2.8 K/mm3 (1.3-6.7); Neutrophils Percent Auto 68.4 % (45.5-73.1); Platelet Count Result 88 k/mm3 (150-375); Red Blood Count 4.05 M/mm3 (4.6-6.20); Red Cell Distribution Width 13.3 % (11.5-14.5)
[2024-06-15 16:55] LABS: Alanine Aminotransferase 13 U/L (6-50); Albumin Level 3.8 g/dL (3.5-5.1); Alkaline Phosphatase 62 U/L (38-126); Anion Gap 6 mmol/L (4-12); Aspartate Amino Transferase 19 U/L (17-59); Bilirubin,Total 0.3 mg/dL (0.2-1.3); Blood Urea Nitrogen 10 mg/dL (9-20); Calcium 9.4 mg/dL (8.4-10.2); Carbon Dioxide 22 mmol/L (22-30); Chloride 102 mmol/L (98-107); Estimated Glomerular Filt Rate > 60; Glucose 98 mg/dL (65-110); Potassium 4.2 mmol/L (3.4-5.0); Sodium 130 mmol/L (137-145)
[2024-06-15 17:15] VITALS: BP 140/82; PULSE 60; RESP 16; O2SAT 97
[2024-06-15 17:18] LABS: Add Urine Microscopic? YES; Appearance Urine Clear (Clear); Bacteria Urine 1+ /hpf; Bilirubin Urine Negative (Negative); Blood Urine 3+ (Negative); Color Urine Yellow (Yellow); Glucose Urine UA Negative (Negative); Ketones Urine Negative (Negative); Leukocyte Esterase Ur 1+ LEU/UL (Negative); Need Manual Microscopic Reviewed; Nitrate Urine Positive (Negative); Non Pathogenic Casts 0-2; Protein Urine Negative (Negative); Specific Grav Ur 1.009 (1.001-1.035); Squamous Epithelial Cell Urine None Seen /hpf (Few); pH Urine 7.5 (5.0-9.0)
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
[2024-06-15 17:45] VITALS: BP 152/81; PULSE 59; RESP 16; O2SAT 99
[2024-06-15] MEDS: CEPHALEXIN 500 MG CAPSULE PO (17:45)
[2024-06-15 19:16] VITALS: BP 164/80; PULSE 59; RESP 18; O2SAT 100
== END 2024-06-15 19:18 ==
PROVIDERS: Emergency Medicine; Emergency Provider Emergency Medicine; PCP Family Medicine
DX: N39.0 Urinary tract infection, site not specified (principal); E11.9 Type 2 diabetes mellitus without complications; E78.5 Hyperlipidemia, unspecified; F17.210 Nicotine dependence, cigarettes, uncomplicated; Z79.82 Long term (current) use of aspirin; Z79.899 Other long term (current) drug therapy
CPT/HCPCS: 36415; 80053; 81001; 85025; 85055; 87077; 87086; 87088; 87186; 99283; A9270

== ENCOUNTER 2025-01-16 10:08 | Inpatient (IN) | payer MEDICARE, OTHER, SELFPAY ==
[2025-01-16] VITALS (9 sets, daily range): BP systolic 97–144; BP diastolic 57–74; PULSE 65–90; RESP 13–20; TEMP 36.6–37.7; O2SAT 94–98
--- NOTE | ~2025-01-16 | CT_ITS ---
EXAMINATION: CT abdomen pelvis w con DATE: 01/16/2025 12:22 INDICATION: Flank pain. TECHNIQUE: Computed tomography (CT) of the abdomen and pelvis was performed with 100 mL Omnipaque 350 intravenous contrast. Automated exposure control and iterative reconstruction technique were employe d. The dose-length product was 411.08 mGy-cm. COMPARISON: CT abdomen pelvis 06/27/2016 FINDINGS: The visualized portions of the lung bases demonstrate airspace and groundglass opacities in right lower lobe and right middle lobe, consistent with pneumonia. There is a trace right pleural ef fusion. Calcified pulmonary nodules are consistent with old granulomatous disease. The heart size is normal. There are coronary artery calcifications. There is a small pericardial effusion. There is mil d intrahepatic biliary duct dilatation. The common duct is dilated to 11 mm, stable from 06/27/16, like ly not clinically significant given the normal liver function tests. The gallbladder is distended. Th e spleen is normal. There is a small sliding hiatal hernia. The pancreas and adrenal glands are shalom l. There is cortical thinning of right kidney. There is a right internal ureteral stent in expected p osition. There is a 3 mm stone in left kidney. There are no dilated loops of bowel. The appendix not visualized. There are no pathologically enlarged lymph nodes. There is no free intraperitoneal fluid. There is edema of the intra-abdominal fat and body wall. There is mild thoracic and lumbar spondylos is. IMPRESSION: 1. Right-sided pneumonia. 2. Small pericardial effusion. 3. Right internal ureteral stent in expected position. Reviewed, dictated and finalized at location A.
--- NOTE | ~2025-01-16 | XR_ITS ---
XR chest 1V portable 01/16/2025 12:25 Indication: Fever Procedure: 2 view chest Comparison: Comparison to multiple prior studies sequentially, with oldest reviewed study dated 02/2021. Findings: There is right upper lobe pneumonia. Heart size normal. Left lung clear. Small right pleura l effusion. No pneumothorax. No acute osseous abnormality. Impression: 1: Right upper lobe pneumonia with small right pleural effusion. Reviewed, dictated and finalized at location A. Impression: 1: Right upper lobe pneumonia with small right pleural effusion.
--- NOTE | 2025-01-16 10:26 | ECG_ITS ---
Test Date: 2025-01-16 10:36:08 Measurements Intervals [place] Rate: 88 P: 65 UT: 177 QRS: 42 QRSD: 101 T: 38 QT: 276 QTc: 335 Interpretive Statements SINUS RHYTHM WITH OCCASIONAL SUPRAVENTRICULAR PREMATURE COMPLEXES NONSPECIFIC T-WAVE ABNORMALITY No previous ECG available for comparison Electronically Signed On 01-16-2025 13:03:06 CDT by Jermaine Jimenez M.D.
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
[2025-01-16 10:50] LABS: Hematocrit 37.6 % (42.0-52.0); Hemoglobin 11.8 g/dL (14.0-18.0); Immature Platelet Fraction Pct 6.6 % (0.9-11.2); Mean Corpuscular HGB Conc 31.4 g/dl (32-36); Mean Corpuscular Hemoglobin 29.6 pg (26-34); Mean Corpuscular Volume 94.5 fl (80-100); Mean Platelet Volume 12.7 fl (7.4-10.4); Platelet Count Result 75 k/mm3 (150-375); Red Blood Count 3.98 M/mm3 (4.6-6.20); Red Cell Distribution Width 13.2 % (11.5-14.5); White Blood Count 6.6 K/mm3 (4.5-10.0)
[2025-01-16 11:02] LABS: Lactic Acid Reflex 1.4 mmol/L (0.7-2.0)
[2025-01-16 11:16] LABS: Band Neutrophils Percent 8 % (0-6); Lymphocytes Absolute Manual 0.13 K/mm3 (1.1-4.5); Lymphocytes Percent Manual 2 % (18-44); Monocytes Absolute Manual 0.19 K/mm3 (0.1-0.90); Monocytes Percent Manual 3 % (3-9); Neutrophils Percent Manual 86 % (46-73); Platelet Estimate Decreased (Adequate); Schistocytes None Seen; Total Cells Counted 100
[2025-01-16 11:17] LABS: Anisocytosis 1+
[2025-01-16 11:18] LABS: Burr Cells 1+; Ovalocytes 1+
[2025-01-16 11:24] LABS: Influenza A QL RT-PCR Negative (Negative); Influenza B QL RT-PCR Negative (Negative); RSV RNA, RT-PCR Negative (Negative); SARS-CoV-2 RNA PCR Negative (Negative)
--- OUTSIDE RECORDS SUMMARY | 2025-01-16 11:24 | XMS_ITS | CONTINUITY OF CARE DOCUMENT ---
Author Name kailash linder Address Unknown Organization [facility] Address [address] [place] [address] Phone [phone] Care Team Providers Care Independent Producer Name Role Phone Cash Cuevas MD Unavailable [phone] INSURANCE PROVIDERS Payer name Policy type / Coverage type [employer] red republican ID [employer] G[employer] HMO [id number]
--- OUTSIDE RECORDS SUMMARY | 2025-01-16 11:24 | XMS_ITS | Encounter Summary ---
Author Organization [facility] Healthcare Address [address] [place] [address] Care Team Providers Care Hvac/R Service Technician Name Role Phone Kamryn Hardy UROLOGIST PHYSICIAN Primary Care Provider + Encounter Details Date Type Department Care Team (Latest Contact Info) Description 01/14/2025 12:00 PM CDT - 01/14/2025 11:59 PM CDT Hospital Encounter [facility] [id number] [place] [id number] Dysuria Discharge Disposition: Discharge to home or self care Social History Tobacco Use Types Packs/Day Years Used Date Smoking Tobacco: Every Day Cigarettes 2 54.2 Started: 1971 Passive Smoke Exposure: Past Smokeless Tobacco: Never AUDIT-C Answer Date Recorded Q1: How often do you have a drink containing alcohol? Never 12/05/2024 Q2: How many drinks containi ng alcohol do you have on a typical day when you are drinking? Patient does not drink Q3: How often do you have si x or more drinks on one occasion? Never 12/05/2024 Personal Safety Answer Date Recorded Have you ever been in or are you currently in a harmful physical or emotional relationship or is someone making you feel afraid or unsafe? 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 Gender Identity Not on file Sexual Orientation Not on file documented as of this encounter Medications at Time of Discharge acetaminophen (TYLENOL) 500 mg tabletIndication s:Pain Take 2 tablets (1,000 mg total) by mouth every 6 (six) hours 30 tablet 12/28/2024 albuterol HFA (PROVENTIL HFA,VENTOLIN HFA,PROAIR HFA) 90 mcg/actuation inhaler Inhale 2 puffs 4 (four) times a day as needed for wheezing or shortness of breath aspirin 81 mg enteric coated tablet Take 1 tablet (81 mg total) by mouth every morning atorvastatin (LIPITOR) 80 mg tablet Take 1 tablet (80 mg total) by mouth nightly cholecalciferol, vitamin D3, (VITAMIN D3 ORAL) Take 50 mcg by mouth every morning clonazePAM (KlonoPIN) 0.5 mg tablet Take 1 tablet (0.5 mg total) by mouth nightly cyanocobalamin, vitamin B-12, (VITAMIN B-12 ORAL) Take 1,000 mcg by mouth every morning diclofenac DR (VOLTAREN) 50 mg EC tablet Take 1 tablet (50 mg total) by mouth 2 (two) times a day DULoxetine DR (CYMBALTA) 30 mg capsule Take 1 capsule (30 mg total) by mouth nightly gabapentin (NEURONTIN) 600 mg tablet Take 2 tablets (1,200 mg total) by mouth 2 (two) times a day 2 tablets guaiFENesin (ROBITUSSIN) 400 mg tablet Take 1 tablet (400 mg total) by mouth every 6 (six) hours as needed for congestion With 8 oz water ibuprofen (ADVIL,MOTRIN) 600 mg tabletIndication s:Pain Take 1 tablet (600 mg total) by mouth every 6 (six) hours as needed for pain 20 tablet 12/28/2024 lisinopriL (PRINIVIL,ZESTRI L) 40 mg tablet Take 1 tablet (40 mg total) by mouth every morning miconazole 2 % powder Apply topically as needed for itching omeprazole (PriLOSEC) 40 mg capsule Take 1 capsule (40 mg total) by mouth every morning phenazopyridine (PYRIDIUM) 100 mg tabletIndication s:Dysuria Take 1 tablet (100 mg total) by mouth 3 (three) times a day as needed for urinary pain 10 tablet 12/28/2024 risperiDONE (RisperDAL) 4 mg tablet Take 1 tablet (4 mg total) by mouth nightly temazepam (RESTORIL) 15 mg capsule Take 1 capsule (15 mg total) by mouth nightly topiramate (TOPAMAX) 200 mg tablet Take 1 tablet (200 mg total) by mouth 2 (two) times a day traZODone (DESYREL) 100 mg tablet Take 1-2 tablets (100-200 mg total) by mouth 2 (two) times a day 1 tablet at 8pm, and 2 tablets at 8:30pm UNABLE TO FIND Take by mouth as needed Med Name: Simply Thick Pump gel, 4 pumps with 4oz of liquid, takes anytime he drinks liquid documented as of this encounter Discharge Disposition Disposition Code Departure Means Destination Discharge to home or self care documented in this encounter Plan of Treatment Pending Results Name Type Priority Associated Diagnoses Date /Time Urine culture Urine, clean voided Microbiology Routine Dysuria 01/14/2025 12:00 PM CDT documented as of this encounter Procedures Procedure Name Priority Date/Time Associated Diagnosis Comments URINALYSIS AND REFLEX TO MICROSCOPIC Routine 01/14/2025 12:00 PM CDT Dysuria URINALYSIS, MICROSCOPIC ONLY Routine 01/14/2025 12:00 PM CDT Dysuria URINE CULTURE Routine 01/14/2025 12:00 PM CDT Dysuria documented in this encounter Results * (ABNORMAL) Urinalysis, microscopic only (01/14/2025 12:00 PM CDT) WBC, ur 21-50(A) 0 - 5 /HPF RBC, ur >50(A) 0 - 2 /HPF CERNER Epithelial cells, squamous, ur 1-5 0 - 5 /HPF CERNER Bacteria, ur 1+(A) CERNER Mucous, ur Present(A) CERNER Urine 01/14/2025 12:0 0 PM CDT 01/14/2025 8:38 PM CDT us Jethro Weber DO LAB URINE ORDERABLES Final Res ult [facility] [address] Department [place] [address] * (ABNORMAL) Urinalysis reflex to microscopic (01/14/2025 12:00 PM CDT) Color, ur Areli Yellow Clarity, ur Turbid(A) Clear CERNER CH Specific gravity, ur 1.023 1.003 - 1.030 CERNER CH pH, urine 8.5 CERNER CH Comment: Interpretive Data U rine pH is affected by diet, medications, systemic acid-base disturbances, and renal tubular function. pH may affect urinary stone formation. For example, urine pH below 6.0 may help reduce the tendency for calcium phosphate stones and pH greater than 6.0 may reduce the tendency for uric acid stone formation. Source: [facility] Current Interpretive Data was last revised on 2017 Protein, ur ql 3+(A) Negative CERNER CH Glucose, ur ql Negative Negative CERNER CH Ketones, ur Negative Negative CERNER CH Bilirubin, ur Negative Negative CERNER CH Blood, ur 1+(A) Negative CERNER CH Urobilinogen, ur <2.0 <2.0 mg/dL CERNER CH Nitrite, ur Positive(A) Negative [facility] CH Leukocyte esterase, ur 4+(A) Negative CERNER CH UA reflex comment Reflex to microscopic UA will be performed. CERNER CH Urine 01/14/2025 12:0 0 PM CDT 01/14/2025 8:38 PM CDT us Jethro Weber DO LAB URINE ORDERABLES Final Res ult [facility] [address] [address] [place] [address] documented in this encounter Visit Diagnoses Diagnosis Dysuria documented in this encounter Care Teams Hvac/R Service Technician Relationship Specialty Start Date End Date Kamryn Hardy NP [address] [place] [address] PCP - General Family Practice 10/04/24 documented as of this encounter
--- OUTSIDE RECORDS SUMMARY | 2025-01-16 11:24 | XMS_ITS | Encounter Summary ---
Author Organization [facility] Address [address] [place] [address] Phone Care Team Providers Care Rn Navigator Name Role Phone FabianoMadisonKamryn bashir Jose BATCH RECORDS CLERK Primary Care Provider + Encounter Details Date Type Department Care Team (Late st Contact Info) Description 01/15/2025 Results Follow-Up [facility] [address] [facility] [address] [place] [address] Bailey Hernandez RMA Social History Tobacco Use Types Packs/Day Years [...] on file 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 ----- Message ----- From: Jethro Weber DO Sent: 01/15/2025 7:54 AM CDT To: CESARIO Blanco - Are we able to call in omnicef for him? 14 days please. And then can we get him in the office in 2 weeks? Thanks, EV ----- Message ----- From: Interface, Lab Results In Sent: 01/14/2025 8:54 PM CDT To: Jethro Weber DO documented in this encounter Plan of Treatment Not on file documented as of this encounter Visit Diagnoses Not on filedocumented in this encounter Care Teams Rn Navigator Relationship Specialty Start Date End Date Kamryn Hardy NP [address] [place] [address] PCP - General Family Practice 10/04/24 documented as of this encounter
--- OUTSIDE RECORDS SUMMARY | 2025-01-16 11:24 | XMS_ITS | Encounter Summary ---
Author Organization [facility] Address [address] [facility] [address] [place] [address] Phone Care Team Providers Care Radio Operator Name Role Phone FabianoMadisonKamryn bashir Jose COATING OPERATOR Primary Care Provider + Encounter Details Date Type Department Care Team (Late st Contact Info) Description 01/16/2025 Telephone [facility] Urology [address] [facility] [address] [place] [address] Jethro Weber, DO [address] [facility] [place] [address] Social History Tobacco Use Types Packs/Day Years [...] on file 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 I explained the urine culture is still pending We discussed recent CT KUB which shows resolution of right renal stone burden, no hydro, and stent in good position. CT also discussed possible atypical PNA, which I explained could be causing fevers as well. He will get evaluated in the ER to determine etiology of fevers. Ok for stent removal in January Jethro Weber DO Sr Account Executive of Urologic Surgery [facility] in [place] documented in this encounter Plan of Treatment Not on file documented as of this encounter Visit Diagnoses Not on filedocumented in this encounter Care Teams Radio Operator Relationship Specialty Start Date End Date Kamryn Hardy NP [address] [place] [address] PCP - General Family Practice 10/04/24 documented as of this encounter
--- OUTSIDE RECORDS SUMMARY | 2025-01-16 11:24 | XMS_ITS | Clinical Summary ---
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 the medical use of analyte specific reagents require that the following disclaimer be attached to the report: This test was developed and its performance characteristics determined by the Surgical Pathology and Flow Cytometry Departments of [facility]. It has not been cleared or approved by the U. S. Food and Drug Administration. IMAGES AND SCANNED DOCUMENTS, IF INCLUDED, ONLY VIEWABLE IN PDF VERSION OF REPORT us Jethro Weber DO LAB PATHOLOGY ORDERABLES Final Result PATHOLOGY [facility] [phone] * PA AN ELECTIVE ENDOTRACHEAL AIRWAY, PA AN PROCEDURE PLACEHOLDER (12/28/2024 4:13 PM PASSENGER REPRESENTATIVE) Meera Silva CRNA - 12/28/2024 4:13 PM PASSENGER REPRESENTATIVE Meera Herrera CRNA 12/28/2024 4:13 PM Airway Patient location: OR Urgency: elective Indications for airway management: anesthesia Difficult airway: no Emergent airway documentation: Risks and benefits discussed: yes Consent obtained: yes Consent given by: patient Airway prep: Preoxygenated: yes Patient position: sniffing Mask difficulty assessment: 1 - vent by mask Spontaneous ventilation during airway: absent Sedation level during airway: GA Final airway details: Final airway type: endotracheal airway Tube type: ETT ETT size: 7.5 mm Cuffed: yes Technique used for successful ETT placement: video laryngoscopy Devices/Methods used in placement: intubating stylet Blade type: Tiffanie Video blade type: Reinoso Blade size: 3 Cormack-Lehane (video): grade I - full view of glottis Cuff volume: 5 mL Cuff inflated with: air ETT to teeth: 23 cm Placement verified by: auscultation Airway secured with: silk tape Number of attempts: 1 us Guevara Howard MD ANESTHESIA ORDERABLES Alison l Result * Urine culture (12/20/2024 9:09 AM PASSENGER REPRESENTATIVE) Urine culture [facility] Comment: CULTURE, URINE, ROUTINE Micro Number: [id number] Test Status: Final Specimen Source: Urine, clean catch Specimen Quality: Adequate Result: No Growth 12/20/2024 9:09 AM PASSENGER REPRESENTATIVE 12/20/2024 9:09 AM PASSENGER REPRESENTATIVE Jethro Weber DO LAB MICROBIOLOGY - GENERAL ORD ERABLES Final Result [facility] [address] [place] [address] * SCAN - LABS (12/10/2024 2:49 PM PASSENGER REPRESENTATIVE) Jethro Weber DO Final Result * CT KUB Stone WO Contrast (11/13/2024 10:30 AM PASSENGER REPRESENTATIVE) Anatomical Region Laterality Modality Abdomen N/A Computed Tomogra phy 11/13/2024 10:4 6 AM PASSENGER REPRESENTATIVE Impressions 11/13/2024 10:46 AM PASSENGER REPRESENTATIVE 1. Nonobstructing nephrolithiasis including a cast of stones in the right renal lower pole. No ureteral or bladder calculus. 2. Mild biliary duct dilatation. 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 Recommend correlation with liver function tests and consideration of MRCP if clinically indicated. Electronically signed by: César Murray M.D. Narrative 11/13/2024 10:46 AM PASSENGER REPRESENTATIVE EXAMINATION: Computed tomography of the abdomen and pelvis without intravenous contrast HISTORY: Nephrolithiasis TECHNIQUE: Transaxial computed tomographic images of the abdomen and pelvis were obtained without intravenous contrast according to the standard protocol. COMPARISON: No prior CT for comparison. FINDINGS: Within the lung bases, there is right lower lobe atelectasis and/or scarring. Trace right pleural effusion. No pneumothorax or left pleural effusion. Normal heart size with small pericardial effusion. There is a 3 mm nonobstructing calculus in the left kidney lower pole. The right kidney lower pole calyces contain a cast of stones nearly extending into the renal pelvis, measuring 0.8 x 0.6 x 2.8 cm. No hydronephrosis in either kidney. No ureteral or bladder calculus. Unenhanced evaluation of the liver demonstrates mild central biliary duct dilatation. There are dependently layering noncalcified stones in the gallbladder. No hepatic lesion is identified. Normal-appearing adrenal glands and pancreas. Normal splenic size. The abdominal aorta is atherosclerotic but nonaneurysmal. No abdominal or pelvic lymphadenopathy. Normal sized prostate gland. Decompressed bladder. No free intraperitoneal fluid or free gas. No intestinal obstruction or focal bowel wall thickening. Ventral abdominal hernia repair changes are present. Bone windows demonstrate no suspicious osseous lesion or fracture. Procedure Note César Murray MD - 11/13/2024 EXAMINATION: Computed tomography of the abdomen and pelvis without intravenous contrast HISTORY: Nephrolithiasis TECHNIQUE: Transaxial computed tomographic images of the abdomen and pelvis were obtained without intravenous contrast according to the standard protocol. COMPARISON: No prior CT for comparison. FINDINGS: Within the lung bases, there is right lower lobe atelectasis and/or scarring. Trace right pleural effusion. No pneumothorax or left pleural effusion. Normal heart size with small pericardial effusion. There is a 3 mm nonobstructing calculus in the left kidney lower pole. The right kidney lower pole calyces contain a cast of stones nearly extending into the renal pelvis, measuring 0.8 x 0.6 x 2.8 cm. No hydronephrosis in either kidney. No ureteral or bladder calculus. Unenhanced evaluation of the liver demonstrates mild central biliary duct dilatation. There are dependently layering noncalcified stones in the gallbladder. No hepatic lesion is identified. Normal-appearing adrenal glands and pancreas. Normal splenic size. The abdominal aorta is atherosclerotic but nonaneurysmal. No abdominal or pelvic lymphadenopathy. Normal sized prostate gland. Decompressed bladder. No free intraperitoneal fluid or free gas. No intestinal obstruction or focal bowel wall thickening. Ventral abdominal hernia repair changes are present. Bone windows demonstrate no suspicious osseous lesion or fracture. IMPRESSION: 1. Nonobstructing nephrolithiasis including a cast of stones in the right renal lower pole. No ureteral or bladder calculus. 2. Mild biliary duct dilatation. 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 Recommend correlation with liver function tests and consideration of MRCP if clinically indicated. Electronically signed by: César Murray M.D. Jethro Weber DO IMG CT PROCEDURES Final Result from Last 3 Months Insurance [employer] CHO[employer] MEDICARE PPO HUMANA MEDICARE O Member Subscriber Plan / Payer (Ef fective 2020-Present) Name:Ivon Momin Relation to Subscriber:Self Name:Ivon Momin Payer ID:[id number] (NAIC) Type:MEDICARE RISK OTHER Address: [address] [facility] HUMANA MEDICARE HMO Care Teams Consulting Practice Manager Relationship Specialty Start Date End Date Kamryn Hardy NP [address] [place] [address] PCP - General Family Practice 10/04/24
--- OUTSIDE RECORDS SUMMARY | 2025-01-16 11:24 | XMS_ITS | Referral Summary ---
Author Organization [facility] [address] Address [address] [place] [address] Care Team Providers Care Supply Chain Manager Name Role Phone Lalajoseph Kamryn Jose ESCALANTE Primary Care Provider + Encounters Date Type Department Care Team Description 01/16/2025 Telephone [facility] [address] [place] [address] Office [facility] [address] [place] [address] Jethro Weber, DO 01/16/2025 Results Follow-Up [facility] Office [facility] [address] [place] [phone] Jethro Weber, DO 01/16/2025 Telephone [facility] Surgery [address] [place] [address] Thelma Hernandez 01/15/2025 Results Follow-Up [facility] [address] [place] [address] Office [facility] [address] [place] [address] Bailey Hernandez RMA 01/15/2025 Orders Only [facility] [address] [place] [address] Office [facility] [address] [place] [address] Jethro Weber, DO 01/14/2025 12:00 PM CDT - 01/14/2025 11:59 PM CDT Hospital Encounter [address] [place] [address] Dysuria Discharge Disposition: Discharge to home or self care 01/14/2025 12:00 PM CDT Lab [facility] Outpatient Lab at [address] [address] 01/14/2025 Orders Only [facility] [address] [facility] Medical Office Building [address] [place] [address] Jethro Weber, Dysuria (Primary Dx) 01/14/2025 Telephone [facility] Surgery [facility] [place] [address] Roselia Anna EMT 01/09/2025 9:47 AM CDT - 01/09/2025 11:59 PM CDT Hospital Encounter [address] [address] Nephrolithiasis Discharge Disposition: Discharge to home or self care 12/31/2024 Orders Only [facility] [address] [facility] Office Building [address] [place] [address] Jethro Weber, Nephrolithiasis (Primary Dx) 12/31/2024 Orders Only [facility] [address] [facility] Office Building [address] [place] [phone] Jethro Weber, Nephrolithiasis (Primary Dx) 12/28/2024 4:29 PM RN LACTATION - 12/28/2024 6:29 PM RN LACTATION Surgery [facility] Operating Room [address] [place] [address] Jethro Weber, DO RIGHT URETEROSCOPY - Calculus 12/28/2024 3:52 PM RN LACTATION Anesthesia Event [facility] Operating Room [address] [place] [address] Guevara Howard, Yana Weaver, AVA 12/28/2024 2:31 PM RN LACTATION - 12/28/2024 7:11 PM RN LACTATION Hospital Encounter [facility] Operating Room [address] [place] [address] Jethro Weber, DO Nephrolithiasis (Primary Dx) Discharge Disposition: Discharge to home or self care 12/24/2024 Telephone [facility] [address] [facility] Office Building [address] [place] [address] Bailey Hernandez, A 12/22/2024 Results Follow-Up [facility] [address] [facility] Office Building [address] [place] [address] Jethro Weber, DO 12/20/2024 Orders Only [facility] ([facility] [address] [place] [address] [facility] 11th [place] [address] [place] [address] Jethro Weber, DO 12/19/2024 Telephone [facility] [address] [facility] Office Building [address] [place] [address] Bailey Hernandez, Bret 12/18/2024 Telephone [facility] [address] [facility] Office Building [address] [place] [address] Jethro Weber, DO 12/18/2024 Telephone [facility] Surgery [address] [place] [address] Ghazala Lange 12/16/2024 Results Follow-Up [facility] [address] [facility] Office Building [address] [place] [address] Jethro Weber, DO 12/10/2024 Orders Only [facility] URO SURGERY Jethro Weber, DO 12/10/[address] [facility] ([facility] 11th [place] [address] [place] [address] Troy Treviño 12/06/2024 Orders Only [facility] [address] [facility] Office Building [address] [place] [address] Jethro Weber, Nephrolithiasis (Primary Dx) 11/21/2024 Telephone [facility] [address] [facility] Office Building [address] [place] [address] Bailey Hernandez RMA 11/20/2024 Telephone [facility] [address] [facility] Office Building [address] [place] [address] Jethro Weber DO 11/13/2024 10:24 AM RN LACTATION - 11/13/2024 11:59 PM RN LACTATION Hospital Encounter [facility] Imaging [address] [place] [address] Calculus of kidney Discharge Disposition: Discharge to home or self care 11/01/2024 11:00 AM RN LACTATION Office Visit [facility] [address] [place] [address] Office Building [address] [place] [address] Jethro Weber, DO Calculus of kidney from Last 3 Months Allergies Active Allergy Reactions Criticality Noted Date [...] knees 12/28/2024 Post-traumatic stress disorder, chronic 12/29/19 25 Pulmonary hypertension 12/28/2024 Nephrolithiasis 11/21/2024 Immunizations Immunization Administration Dates Next Due Influenza, Quad, Adjuvantated, Intramuscular Influenza, Quadrivalent, Darlene l Culture-based MDCK, Preservative Free, Antibiotic Free, Intramuscular 10/20/2017 Influenza, Quadrivalent, Hig h Dose, Preservative Free, Intrr 07/26/2023 Influenza, Quadrivalent, Spl it, Preservative Free, Intramuscular 08/15/2018 Influenza, Trivalent, High D ose, Split, Preservative Free, Intramuscular 07/24/2024 Pneumococcal Polysaccharide PPV23 10/03/2023,03/2018 Pneumococcal, Unspecified 09/25/1998 Tdap 10/11/2018,07/11/2009 ZOSTER LIVE 12/12/2014 Social History Tobacco Use Types Packs/Day Years [...] on file Legal Sex Male 7:30 AM RN LACTATION Gender Identity Not on file Sexual Orientation Not on file Last Filed Vital Signs Vital Sign Reading Time Taken Comments Blood Pressure 129/60 12/28/2024 6:35 PM RN LACTATION Pulse 68 12/28/2024 6:40 PM RN LACTATION Temperature 36.3 C (97.3 F) 12/28/2024 6:50 PM RN LACTATION Respiratory Rate 11 12/28/2024 6:40 PM RN LACTATION Oxygen Saturation 98% 12/28/2024 6:40 PM RN LACTATION Inhaled Oxygen Concentration - - Weight 70.8 kg (156 lb 1.4 oz) 12/28/2024 3:56 P M RN LACTATION Height 162.6 cm (5' 4 ) 12/05/2024 11:18 AM RN LACTATION Body Mass Index 26.79 12/05/2024 11:18 AM RN LACTATION Plan of Treatment Not on file Medical Devices Implanted Type Area Coal Gasification Technician Device Identifier Shelf Expiration Date Model / Serial / Lot [employer] 6fr 24cm Radiop[employer] Graduate Firm [employer] [id number] - [id number] Implanted:Qty: 1 on 12/28/2024 by Jethro Weber DO at [facility] Right: [employer] 09/13/2027 [id number] / / [id number] Procedures Procedure Name Priority Date/Time Associated Diagnosis Comments URINALYSIS, MICROSCOPIC ONLY Routine 01/14/2025 12:00 PM CDT Dysuria URINALYSIS AND REFLEX TO MICROSCOPIC Routine 01/14/2025 12:00 PM CDT Dysuria URINE CULTURE Routine 01/14/2025 12:[address] KUB STONE WO CONTRAST Schedule Routine, Read Routine (OP Routine) 01/09/2025 9:55 AM CDT Nephrolithiasis FL FLUOROSCOPY < 1 HOUR IP Routine 12/28/2024 5:36 PM RN LACTATION SURGICAL PATHOLOGY Routine 12/28/2024 5: 27 PM RN LACTATION Nephrolithiasis DE AN PROCEDURE PLACEHOLDER Routine 12/28/2024 4:13 PM RN LACTATION DE AN ELECTIVE ENDOTRACHEAL AIRWAY Routine 12/28/2024 4:13 PM RN LACTATION PLACEMENT STENT - URETERAL 12/28/2024 3:57 PM RN LACTATION Nephrolithiasis LASER HOLMIUM 12/28/2024 3:57 PM RN LACTATION Nephrolithiasis URETEROSCOPY 12/28/2024 3:57 PM RN LACTATION Nephrolithiasis URINE CULTURE Routine 12/20/2024 9:09 AM RN LACTATION SCAN - LABS 12/10/2024 2:[address] KUB STONE WO CONTRAST Schedule Routine, Read Routine (OP Routine) 11/13/2024 10:30 AM RN LACTATION Calculus of kidney from Last 3 Months Results * (ABNORMAL) Urinalysis reflex to microscopic (01/14/2025 12:00 PM CDT) Color, ur Areli Yellow Clarity, ur Turbid(A) Clear [facility] CH Specific gravity, ur 1.023 1.003 - 1.030 C[facility]ER CH pH, urine 8.5 CERNER Comment: Interpretive Data U rine pH is affected by diet, medications, systemic acid-base disturbances, and renal tubular function. pH may affect urinary stone formation. For example, urine pH below 6.0 may help reduce the tendency for calcium phosphate stones and pH greater than 6.0 may reduce the tendency for uric acid stone formation. Source: [facility] Current Interpretive Data was last revised on [...] 0 PM CDT 01/14/2025 8:38 PM CDT Surge Performance Training LAB URINE ORDERABLES Final Res ult Performing Organization Address [facility] Co de Phone Number [employer] [address] [place] [address] * (ABNORMAL) Urinalysis, microscopic only (01/14/2025 12:00 PM CDT) WBC, ur 21-50(A) 0 - 5 /HPF RBC, ur >50(A) 0 - 2 /HPF [facility] Epithelial cells, squamous, ur 1-5 0 - 5 /HPF [facility] Bacteria, ur 1+(A) [facility] Mucous, ur Present(A) [facility] Urine 01/14/2025 12:0 0 PM CDT 01/14/2025 8:38 PM CDT Surge Performance Training LAB URINE ORDERABLES Final Res ult Performing Organization Address [facility]/ZIP Co de Phone Number VLADIMIR KENNEDY [address] [address] Department [facility] [place] [address] * CT KUB Stone WO Contrast (01/09/2025 [...] Jose Palacios M.D. ABIEL: ABIEL Report ID: [id number] Reading Location: [id number] Procedure Note Shayan Palacios MD - 01/13/2025 [...] Jose Palacios M.D. ABIEL: ABIEL Report ID: [id number] Reading Location: [id number] Jethro CubaRyley Weber DO IMG CT PROCEDURES Final Result * FL Fluoroscopy < 1 Hour (12/28/2024 5:36 PM RN LACTATION) Narrative [facility] - 12/28/2024 5:37 PM RN LACTATION The images from this study are not interpreted by Radiology. Please refer to the physician's procedure / OR operative note. Jethro Rosa ElenaRyley Gus DO IMG FLUOROSCOPY PROCEDURES Fin al Result [facility] * Surgical pathology (12/28/2024 5:27 PM RN LACTATION) Tissue (Calculus/calculi /stone, gross and Chemical Analysis) 12/28/2024 5:27 PM RN LACTATION Narrative PATHOLOGY [facility] - 01/04/2025 12:44 PM CDT EPIC results best viewed via link to PDF [facility] [place] [address] Note to Patients: This report may contain [...] WITH ADDENDUM Patient Name: IVON MOMIN Gender: M : 1955 (Age: 69) Address: [facility] [address] [facility] [place] [address] [facility] #: [id number] Taken:12/28/2024 Received:12/31/2024 Reported: 01/04/2025 Patient [facility]: [facility] EP SAME Client [facility] Service: Surgery Location: Physician(s): Jethro Weber, DO Kamryn Hardy, JAKE Pierre M.D. Diagnosis: Right kidney, stone, [...] calculi (0.1-0.4 cm in greatest dimension). A shared services representative sample is submitted for chemical analysis. Jar [...] interpretation for this case was performed at [facility], Department of Surgical Pathology, [address] [facility] [address], [id number], [place] [address] CLIA # [id number] The performance characteristics of some immunohistochemical stains, fluorescence in-situ hybridization tests and immunophenotyping by flow cytometry cited in this report (if any) were determined by the Surgical Pathology and Flow Cytometry Departments at [facility] as part of an ongoing plant quality manager program and in compliance with federally [...] Surgical Pathology and Flow Cytometry Departments of [facility]. It has not been cleared or approved by the U. S. Food and Drug Administration. IMAGES AND SCANNED DOCUMENTS, IF INCLUDED, ONLY VIEWABLE IN PDF VERSION OF REPORT Jethro Weber DO LAB PATHOLOGY ORDERABLES Final Result PATHOLOGY [facility] [phone] * DE AN ELECTIVE ENDOTRACHEAL AIRWAY, DE AN PROCEDURE PLACEHOLDER (12/28/2024 4:13 PM RN LACTATION) Meera Silva CRNA - 12/28/2024 4:13 PM RN LACTATION Meera Herrera CRNA 12/28/2024 4:13 PM Airway [...] with: silk tape Number of attempts: 1 Guevara Howard MD ANESTHESIA ORDERABLES Alison l Result * Urine culture (12/20/2024 9:09 AM RN LACTATION) [facility] Comment: CULTURE, URINE, ROUTINE Micro Number: [id number] Test Status: Final Specimen Source: Urine, clean catch Specimen Quality: Adequate Result: No Growth 12/20/2024 9:09 AM RN LACTATION 12/20/2024 9:09 AM RN LACTATION Jethro Weber DO LAB MICROBIOLOGY - GENERAL ORD ERABLES Final Result [facility] [address] [place] [address] * SCAN - LABS (12/10/2024 2:49 PM RN LACTATION) Jethro Weber DO Final Result * CT KUB Stone WO Contrast (11/13/2024 10:30 AM RN LACTATION) Anatomical Region Laterality Modality Abdomen N/A Computed Tomogra phy 11/13/2024 10:4 6 AM RN LACTATION Impressions 11/13/2024 10:46 AM RN LACTATION 1. Nonobstructing nephrolithiasis including a cast of stones in the right renal lower pole. No ureteral or bladder calculus. 2. Mild biliary duct dilatation. 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 Recommend correlation with liver function tests and consideration of MRCP if clinically indicated. Electronically signed by: César Murray M.D. Narrative 11/13/2024 10:46 AM RN LACTATION EXAMINATION: Computed tomography of the abdomen and [...] Final Result from Last 3 Months Insurance [employer] MEDICARE O HUMANA MEDICARE HMO [facility] HUMANA MEDICARE HMO Care Teams Supply Chain Manager Relationship Specialty Start Date End Date Kamryn Hardy NP [address] [place] [address] PCP - General Family Practice 10/04/24
--- OUTSIDE RECORDS SUMMARY | 2025-01-16 11:24 | XMS_ITS | Encounter Summary ---
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 He would like to know how to proceed. Patient Provider: Jethro Weber Medical/Surgical Information: Outcome/Plan: documented in this encounter Plan of Treatment Not on file documented as of this encounter Visit Diagnoses Not on filedocumented in this encounter Care Teams Director Patient Accounting Relationship Specialty Start Date End Date Kamryn Hardy NP [address] [place] [address] PCP - General Family Practice 10/04/24 documented as of this encounter
--- OUTSIDE RECORDS SUMMARY | 2025-01-16 11:24 | XMS_ITS | Encounter Summary ---
Author Organization [facility] Address [address] [facility] [address] [place] [address] Phone Care Team Providers Care Circulation Man Name Role Phone Kamryn Hardy PC SUPPORT SPECIALIST Primary Care Provider + Encounter Details Date Type Department Care Team (Late st Contact Info) Description 12/22/2024 Results Follow-Up [facility] Urology [address] [facility] Medical Office Building [address] [place] [address] Jethro Weber DO [address] [facility] [place] [address] Social History Tobacco Use Types Packs/Day Years [...] more drinks on one occasion? 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
--- OUTSIDE RECORDS SUMMARY | 2025-01-16 11:24 | XMS_ITS | Encounter Summary ---
Author Organization [facility] Address [address] [facility] [address] [place] [address] Phone Care Team Providers Care Meal Cook Name Role Phone Kamryn Hardy GLAZIER APPRENTICE Primary Care Provider + Encounter Details Date Type Department Care Team (Late st Contact Info) Description 01/16/2025 Results Follow-Up [facility] Urology [address] [facility] Medical Office [address] [place] [address] Jethro Weber, DO [address] [facility] [place] [address] Social History Tobacco Use Types Packs/Day Years [...] on file 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
--- OUTSIDE RECORDS SUMMARY | 2025-01-16 11:24 | XMS_ITS | Encounter Summary ---
Author Organization [facility] Address [address] [facility] [address] [place] [address] Phone Care Team Providers Care Drainage Inspector Name Role Phone Kamryn Hardy COOKER SULFATE Primary Care Provider + Encounter Details Date Type Department Care Team (Late st Contact Info) Description 12/16/2024 Results Follow-Up [facility] Urology [address] [facility] Medical Office Building [address] [place] [address] Jethro Weber DO [address] [facility] [place] [address] Social History Tobacco Use Types Packs/Day Years [...] on file 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
--- OUTSIDE RECORDS SUMMARY | 2025-01-16 11:24 | XMS_ITS | Encounter Summary ---
Author Organization [facility] Address [address] [facility] [address] [place] [address] Phone Care Team Providers Care Operations Analyst Name Role Phone Kamryn Hardy E COMMERCE RETAILER Primary Care Provider + Encounter Details Date Type Department Care Team (Late st Contact Info) Description 01/15/2025 Orders Only [facility] Urology [address] [facility] Medical Office Building [address] [place] [address] Jethro Weber, DO [address] [facility] [place] [address] Social History Tobacco Use Types Packs/Day Years [...] on file 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 Gender Identity Not on file Sexual Orientation Not on file documented as of this encounter Ordered Prescriptions Prescription Sig Dispense Quantity Refills Last Filled Start Date End Date cefdinir (OMNICEF) 300 mg capsule Take 1 capsule (300 mg total) by mouth 2 (two) times a day for 14 days 28 capsule 01/15/2025 5 documented in this encounter Plan of Treatment Not on file documented as of this encounter Visit Diagnoses Not on filedocumented in this encounter Care Teams Operations Analyst Relationship Specialty Start Date End Date Kamryn Hardy NP [address] [place] [address] PCP - General Family Practice 10/04/24 documented as of this encounter
[2025-01-16] MEDS: KETOROLAC 30 MG/ML VIAL (*BKC) IV PUSH (11:37)
[2025-01-16 11:38] LABS: INR 1.2; Prothrombin Time 15.6 Seconds (11.1-14.7)
[2025-01-16] MEDS: ACETAMINOPHEN 500 MG TABLET 1000 MG PO (11:38)
[2025-01-16] MEDS: SODIUM CHLORIDE 0.9% IV 1,000 ML 999 ML IV CONT ×2 (11:38)
--- OUTSIDE RECORDS SUMMARY | 2025-01-16 11:44 | XMS_ITS | Encounter Summary ---
Author Organization [facility] Address [address] [facility] [address] [place] [address] Phone Care Team Providers Care Director Of Officiating Name Role Phone Kamryn Hardy LIAISON ENGINEER Primary Care Provider + Encounter Details Date Type Department Care Team (Late st Contact Info) Description 12/22/2024 Results Follow-Up [facility] Urology [address] [facility] Medical Office Building [address] [place] [address] Jethro Weber DO [address] [facility] [place] [address] Social History Tobacco Use Types Packs/Day Years [...] on file 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
--- OUTSIDE RECORDS SUMMARY | 2025-01-16 11:44 | XMS_ITS | Encounter Summary ---
Author Organization [facility] Address [address] [facility] [address] [place] [address] Phone Care Team Providers Care Visor Installer Name Role Phone Kamryn Hardy MICROGRAPHICS SERVICES SUPERVISOR Primary Care Provider + Encounter Details Date Type Department Care Team (Late st Contact Info) Description 12/16/2024 Results Follow-Up [facility] Urology [address] [facility] Medical Office [address] [place] [address] Jethro Weber DO [address] [facility] [place] [address] Social History Tobacco Use Types Packs/Day Years [...] file 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
--- OUTSIDE RECORDS SUMMARY | 2025-01-16 11:44 | XMS_ITS | Encounter Summary ---
Author Organization [facility] Address [address] [facility] [address] [place] [address] Phone Care Team Providers Care Piler Name Role Phone FabianoMadisonKamryn bashir Jose TIMBER FRAMER Primary Care Provider + Encounter Details Date Type Department Care Team (Late st Contact Info) Description 01/16/2025 Telephone [facility] Urology [address] [facility] Medical Office [address] [place] [address] Jethro Weber, DO [address] [facility] [place] [address] Social History Tobacco Use Types Packs/Day Years [...] on file 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
--- OUTSIDE RECORDS SUMMARY | 2025-01-16 11:44 | XMS_ITS | Encounter Summary ---
Author Organization [facility] Address [address] [facility] [address] [place] [address] Phone Care Team Providers Care Diesel Tractor Engine Mechanic Name Role Phone Kamryn Hardy MANAGER ENVIRONMENTAL HEALTH AND SAFETY Primary Care Provider + Encounter Details Date Type Department Care Team (Late st Contact Info) Description 01/15/2025 Orders Only [facility] Urology [address] [facility] Medical Office [address] [place] [address] Jethro Weber, DO [address] [facility] [place] [address] Social History Tobacco Use Types Packs/Day Years [...] on file 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
--- OUTSIDE RECORDS SUMMARY | 2025-01-16 11:44 | XMS_ITS | Referral Summary ---
Author Organization [facility] [place] [address] Address [address] [place] [address] Care Team Providers Care Bpm Developer Name Role Phone Lalajoseph Kamryn Jose ESCALANTE Primary Care Provider + Encounters Date Type Department Care Team Description 01/16/2025 Telephone [facility] Urology [address] [place] [address] [facility] [address] [place] [address] Jethro Weber, DO 01/16/2025 Results Follow-Up [facility] Urology [facility] Office [facility] [address] [place] [address] Jethro Weber, DO 01/16/2025 Telephone [facility] Surgery [address] [place] [address] Thelma Hernandez 01/15/2025 Results Follow-Up [facility] Urology [address] [place] [address] [facility] [address] [place] [address] Bailey Hernandez RMA 01/15/2025 Orders Only [facility] Urology [address] [place] [address] [facility] [address] [place] [address] Jethro Wbeer, DO 01/14/2025 12:00 PM CDT - 01/14/2025 11:59 PM CDT Hospital Encounter [address] [place] [address] Dysuria Discharge Disposition: Discharge to home or self care 01/14/2025 12:00 PM CDT Lab [facility] Outpatient Lab at [address] [address] 01/14/2025 Orders Only [facility] Urology [address] [facility] Medical Office Building [address] [place] [address] Jethro Weber, Dysuria (Primary Dx) 01/14/2025 Telephone [facility] Surgery [facility] [place] [address] Roselia Anna EMT 01/09/2025 9:47 AM CDT - 01/09/2025 11:59 PM CDT Hospital Encounter [address] [address] Nephrolithiasis Discharge Disposition: Discharge to home or self care 12/31/2024 Orders Only [facility] Urology [address] [facility] Office Building [address] [place] [address] Jethro Weber, Nephrolithiasis (Primary Dx) 12/31/2024 Orders Only [facility] Urology [address] [facility] Office Building [address] [place] [address] Jethro Weber, Nephrolithiasis (Primary Dx) 12/28/2024 4:29 PM CLINICAL RESEARCH NURSE COORDINATOR - 12/28/2024 6:29 PM CLINICAL RESEARCH NURSE COORDINATOR Surgery [facility] Operating Room [address] [place] [address] Jethro Weber, DO RIGHT URETEROSCOPY - Calculus 12/28/2024 3:52 PM CLINICAL RESEARCH NURSE COORDINATOR Anesthesia Event [facility] Operating Room [address] [place] [address] Guevara Howard, Yana Weaver, AVA 12/28/2024 2:31 PM CLINICAL RESEARCH NURSE COORDINATOR - 12/28/2024 7:11 PM CLINICAL RESEARCH NURSE COORDINATOR Hospital Encounter [facility] Operating Room [address] [place] [address] Jethro Weber, DO Nephrolithiasis (Primary Dx) Discharge Disposition: Discharge to home or self care 12/24/2024 Telephone [facility] Urology [address] [facility] Office Building [address] [place] [address] Bailey Hernandez, A 12/22/2024 Results Follow-Up [facility] Urology [address] [facility] Office Building [address] [place] [address] Jethro Weber, DO 12/20/2024 Orders Only [facility] Urology [address] [place] [address] [facility] 11th [place] [address] [place] [address] Jethro Weber, DO 12/19/2024 Telephone [facility] Urology [address] [facility] Office Building [address] [place] [address] Bailey Hernandez, Bret 12/18/2024 Telephone [facility] Urology [address] [facility] Office Building [address] [place] [address] Jethro Weber, DO 12/18/2024 Telephone [facility] Surgery [address] [place] [address] Ghazala Lange 12/16/2024 Results Follow-Up [facility] Urology [address] [facility] Office Building [address] [place] [address] Jethro Weber, DO 12/10/2024 Orders Only [facility] URO SURGERY Jethro Weber, DO 12/10/2024 Telephone [facility] ([facility] Urology [facility] 11th [place] [address] [place] [address] Troy Treviño 12/06/2024 Orders Only [facility] Urology [address] [facility] Office Building [address] [place] [address] Jethro Weber, Nephrolithiasis (Primary Dx) 11/21/2024 Telephone [facility] Urology [address] [facility] Office Building [address] [place] [address] Bailey Hernandez RMA 11/20/2024 Telephone [facility] Urology [address] [facility] Office Building [address] [place] [address] Jethro Weber DO 11/13/2024 10:24 AM CLINICAL RESEARCH NURSE COORDINATOR - 11/13/2024 11:59 PM CLINICAL RESEARCH NURSE COORDINATOR Hospital Encounter [facility] [address] [place] [address] Calculus of kidney Discharge Disposition: Discharge to home or self care 11/01/2024 11:00 AM CLINICAL RESEARCH NURSE COORDINATOR Office Visit [facility] Urology [address] [place] [address] Office Building [address] [place] [address] Jethro Weber, DO Calculus of kidney from [...] on file Legal Sex Male 7:30 AM CLINICAL RESEARCH NURSE COORDINATOR Gender Identity Not on file Sexual Orientation Not on file Last Filed Vital Signs Vital Sign Reading Time Taken Comments Blood Pressure 129/60 12/28/2024 6:35 PM CLINICAL RESEARCH NURSE COORDINATOR Pulse 68 12/28/2024 6:40 PM CLINICAL RESEARCH NURSE COORDINATOR Temperature 36.3 C (97.3 F) 12/28/2024 6:50 PM CLINICAL RESEARCH NURSE COORDINATOR Respiratory Rate 11 12/28/2024 6:40 PM CLINICAL RESEARCH NURSE COORDINATOR Oxygen Saturation 98% 12/28/2024 6:40 PM CLINICAL RESEARCH NURSE COORDINATOR Inhaled Oxygen Concentration - - Weight 70.8 kg (156 lb 1.4 oz) 12/28/2024 3:56 P M CLINICAL RESEARCH NURSE COORDINATOR Height 162.6 cm (5' 4 ) 12/05/2024 11:18 AM CLINICAL RESEARCH NURSE COORDINATOR Body Mass Index 26.79 12/05/2024 11:18 AM CLINICAL RESEARCH NURSE COORDINATOR Plan of Treatment Not on file Medical Devices Implanted Type Area Continuous Weld Pipe Mill Supervisor Device Identifier Shelf Expiration Date Model / Serial / Lot [employer] 6fr 24cm Radiop[employer] Graduate [employer] Monofilament Tether [id number] - [id number] Implanted:Qty: 1 on 12/28/2024 by Jethro Weber DO at [facility] Right: [employer] 09/13/2027 [id number] / / [id number] Procedures Procedure Name Priority Date/Time Associated Diagnosis Comments URINALYSIS, MICROSCOPIC ONLY Routine 01/14/2025 12:00 PM CDT Dysuria URINALYSIS AND REFLEX TO MICROSCOPIC Routine 01/14/2025 12:00 PM CDT Dysuria URINE CULTURE Routine 01/14/2025 12:[address] KUB STONE WO CONTRAST Schedule Routine, Read Routine (OP Routine) 01/09/2025 9:55 AM CDT Nephrolithiasis FL FLUOROSCOPY < 1 HOUR IP Routine 12/28/2024 5:36 PM CLINICAL RESEARCH NURSE COORDINATOR SURGICAL PATHOLOGY Routine 12/28/2024 5: 27 PM CLINICAL RESEARCH NURSE COORDINATOR Nephrolithiasis [place] AN PROCEDURE PLACEHOLDER Routine 12/28/2024 4:13 PM CLINICAL RESEARCH NURSE COORDINATOR [place] AN ELECTIVE ENDOTRACHEAL AIRWAY Routine 12/28/2024 4:13 PM CLINICAL RESEARCH NURSE COORDINATOR PLACEMENT STENT - URETERAL 12/28/2024 3:57 PM CLINICAL RESEARCH NURSE COORDINATOR Nephrolithiasis LASER HOLMIUM 12/28/2024 3:57 PM CLINICAL RESEARCH NURSE COORDINATOR Nephrolithiasis URETEROSCOPY 12/28/2024 3:57 PM CLINICAL RESEARCH NURSE COORDINATOR Nephrolithiasis URINE CULTURE Routine 12/20/2024 9:09 AM CLINICAL RESEARCH NURSE COORDINATOR SCAN - LABS 12/10/2024 2:49 PM CLINICAL RESEARCH NURSE COORDINATOR CT KUB STONE WO CONTRAST Schedule Routine, Read Routine (OP Routine) 11/13/2024 10:30 AM CLINICAL RESEARCH NURSE COORDINATOR Calculus of kidney from Last 3 Months [...] tendency for uric acid stone formation. Source: [facility] Attensity Current Interpretive Data was last revised on [...] 0 PM CDT 01/14/2025 8:38 PM CDT Aductions LAB URINE ORDERABLES Final Res ult Performing Organization Address [facility] Co de Phone Number [place] [address] Department [place] [address] * (ABNORMAL) Urinalysis, microscopic only (01/14/2025 12:00 PM CDT) WBC, ur 21-50(A) 0 - 5 /HPF RBC, ur >50(A) 0 - 2 /HPF [facility] Epithelial cells, squamous, ur 1-5 0 - 5 /HPF [facility] Bacteria, ur 1+(A) [facility] Mucous, ur Present(A) [facility] Urine 01/14/2025 12:0 0 PM CDT 01/14/2025 8:38 PM CDT [facility]ctions LAB URINE ORDERABLES Final Res ult Performing Organization Address [facility]/ZIP Co de Phone Number VLADIMIR KENNEDY [address] [address] [place] [address] * CT KUB Stone WO [...] Jose Palacios M.D. ABIEL: ABIEL Report ID: [id number] Reading Location: [id number] Procedure Note Shayan Palacios MD - 01/13/2025 [...] Jose Palacios M.D. ABIEL: ABIEL Report ID: [id number] Reading Location: [id number] Jethro CubaRyley Weber DO IMG CT PROCEDURES Final Result * FL Fluoroscopy < 1 Hour (12/28/2024 5:36 PM CLINICAL RESEARCH NURSE COORDINATOR) Narrative RAD_PACS_[facility] - 12/28/2024 5:37 PM CLINICAL RESEARCH NURSE COORDINATOR The images from this study are not interpreted by Radiology. Please refer to the physician's procedure / OR operative note. Jethro Rosa ElenaRyley Gus DO IMG FLUOROSCOPY PROCEDURES Fin al Result RAD_PACS[facility] * Surgical pathology (12/28/2024 5:27 PM CLINICAL RESEARCH NURSE COORDINATOR) Tissue (Calculus/calculi /stone, gross and Chemical Analysis) 12/28/2024 5:27 PM CLINICAL RESEARCH NURSE COORDINATOR Narrative PATHOLOGY [facility] - 01/04/2025 12:44 PM CDT EPIC results best viewed via link to PDF [facility] [place] [address] Note to Patients: This report may contain [...] Gender: M : 1955 (Age: 69) Address: [facility] [place] [place] [address] [facility] #: [id number] Taken:12/28/2024 Received:12/31/2024 Reported: 01/04/2025 Patient Type: [facility] EP SAME Client [facility] Service: Surgery Location: [...] cm in greatest dimension). A sales representative womens health sample is submitted for chemical analysis. Jar [...] interpretation for this case was performed at [facility], Department of Surgical Pathology, [address] [facility] [address], [id number], [place] [address] CLIA # [id number] The performance characteristics of some immunohistochemical stains, fluorescence in-situ hybridization tests and immunophenotyping by flow cytometry cited in this report (if any) were determined by the Surgical Pathology and Flow Cytometry Departments at [facility] as part of an ongoing quality measurement specialist program and in compliance with federally mandated [...] Surgical Pathology and Flow Cytometry Departments of [facility]. It has not been cleared or approved by the U. S. Food and Drug Administration. IMAGES AND SCANNED DOCUMENTS, IF INCLUDED, ONLY VIEWABLE IN PDF VERSION OF REPORT Jethro Weber DO LAB PATHOLOGY ORDERABLES Final Result PATHOLOGY [facility] [phone] * [place] AN ELECTIVE ENDOTRACHEAL AIRWAY, [place] AN PROCEDURE PLACEHOLDER (12/28/2024 4:13 PM CLINICAL RESEARCH NURSE COORDINATOR) Meera Silva CRNA - 12/28/2024 4:13 PM CLINICAL RESEARCH NURSE COORDINATOR Meera Herrera CRNA 12/28/2024 4:13 PM Airway [...] Result * Urine culture (12/20/2024 9:09 AM CLINICAL RESEARCH NURSE COORDINATOR) Urine culture [facility] Comment: CULTURE, URINE, ROUTINE Micro Number: [id number] Test Status: Final Specimen Source: Urine, clean catch Specimen Quality: Adequate Result: No Growth 12/20/2024 9:09 AM CLINICAL RESEARCH NURSE COORDINATOR 12/20/2024 9:09 AM CLINICAL RESEARCH NURSE COORDINATOR Jethro Weber DO LAB MICROBIOLOGY - GENERAL ORD ERABLES Final Result [facility] [address] [place] [address] * SCAN - LABS (12/10/2024 2:49 PM CLINICAL RESEARCH NURSE COORDINATOR) Jethro Weber DO Final Result * CT KUB Stone WO Contrast (11/13/2024 10:30 AM CLINICAL RESEARCH NURSE COORDINATOR) Anatomical Region Laterality Modality Abdomen N/A Computed Tomogra phy 11/13/2024 10:4 6 AM CLINICAL RESEARCH NURSE COORDINATOR Impressions 11/13/2024 10:46 AM CLINICAL RESEARCH NURSE COORDINATOR 1. Nonobstructing nephrolithiasis including a cast of stones in the right renal lower pole. No ureteral or bladder calculus. 2. Mild biliary duct dilatation. 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 Recommend correlation with liver function tests and consideration of MRCP if clinically indicated. Electronically signed by: César Murray M.D. Narrative 11/13/2024 10:46 AM CLINICAL RESEARCH NURSE COORDINATOR EXAMINATION: Computed tomography of the abdomen and [...] Final Result from Last 3 Months Insurance [employer] MEDICARE O HUMANA MEDICARE HMO [facility] HUMANA MEDICARE HMO Care Teams Bpm Developer Relationship Specialty Start Date End Date Kamryn Hardy NP [address] [place] [address] PCP - General Family Practice 10/04/24
--- OUTSIDE RECORDS SUMMARY | 2025-01-16 11:44 | XMS_ITS | CONTINUITY OF CARE DOCUMENT ---
Author Name kailash linder Address Unknown Organization [facility] Address [address] [facility] [address] [place] [address] Phone [phone] Care Team Providers Care Seamless Hosiery Knitter Name Role Phone Cash Cuevas MD Unavailable INSURANCE PROVIDERS Payer name Policy type / Coverage type [place] red democrat ID HUMANA GOLD PLUS HMO HMO [id number]
--- OUTSIDE RECORDS SUMMARY | 2025-01-16 11:44 | XMS_ITS | Encounter Summary ---
Author Organization [facility] Address [address] [place] [address] Phone Care Team Providers Care Maintenance Worker Swimming Pool Name Role Phone FabianoMadisonKamryn bashir Jose MARINE MECHANIC Primary Care Provider + Encounter Details Date Type Department Care Team (Late st Contact Info) Description 01/15/2025 Results Follow-Up [facility] Urology [address] [facility] Medical Office Building [address] [place] [address] Bailey Hernandez RMA Social History [...] on file 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
--- OUTSIDE RECORDS SUMMARY | 2025-01-16 11:44 | XMS_ITS | Encounter Summary ---
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 He would like to know how to proceed. Patient Provider: Jethro Weber Medical/Surgical Information: Outcome/Plan: documented in this encounter Plan of Treatment Not on file documented as of this encounter Visit Diagnoses Not on filedocumented in this encounter Care Teams Payroll Accounting Specialist Relationship Specialty Start Date End Date Kamryn Hardy NP [address] [place] [address] PCP - General Family Practice 10/04/24 documented as of this encounter
--- OUTSIDE RECORDS SUMMARY | 2025-01-16 11:44 | XMS_ITS | Encounter Summary ---
Author Organization [facility] Address [address] [facility] [address] [place] [address] Phone Care Team Providers Care Demand Manager Name Role Phone Kamryn Hardy MANAGER WEALTH MANAGEMENT Primary Care Provider + Encounter Details Date Type Department Care Team (Late st Contact Info) Description 01/16/2025 Results Follow-Up [facility] Urology [address] [facility] Medical Office Building [address] [place] [address] Jethro Weber, DO [address] [facility] [place] [address] Social History Tobacco Use Types Packs/Day Years [...] on file 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
--- OUTSIDE RECORDS SUMMARY | 2025-01-16 11:44 | XMS_ITS | Clinical Summary ---
Author Organization [facility] [address] [facility] 162 Address [address] [place] [address] Care Team Providers Care Alteration Specialist Name Role Phone Kamryn Hardy Jose GRASSLAND CONSERVATIONIST Primary Care Provider + Allergies Active Allergy [...] Type Department Care Team Description 01/16/2025 Telephone [facility] Urology [address] [place] [address] Office [facility] [address] [place] [address] Jethro Weber H., DO 01/16/2025 Results Follow-Up [facility] Urology [facility] Office Building [address] [place] [address] Jethro Weber H., DO 01/16/2025 Telephone [facility] Surgery [address] [place] [address] Thelma Hernandez 01/15/2025 Results Follow-Up [facility] Urology [facility] Office Building [address] [place] [address] Bailey Hernandez RMA 01/15/2025 Orders Only [facility] Urology [address] [place] [address] Office Building [address] [place] [address] Jethro Weber H., DO 01/14/2025 12:00 PM CDT - 01/14/2025 11:59 PM CDT Hospital Encounter [address] [address] Dysuria Discharge Disposition: Discharge to home or self care 01/14/2025 12:00 PM CDT Lab [facility] Outpatient Lab at [address] [address] 01/14/2025 Orders Only [facility] Urology [address] [facility] Medical Office Building [address] [place] [address] Jethro Weber, DO Dysuria (Primary Dx) 01/14/2025 Telephone [facility] Surgery [address] [place] [address] Roselia Anna EMT 01/09/2025 9:47 AM CDT - 01/09/2025 11:59 PM CDT Hospital Encounter [address] [address] Nephrolithiasis Discharge Disposition: Discharge to home or self care 12/31/2024 Orders Only [facility] Urology [address] [facility] Medical Office Building [address] [place] [address] Jethro Weber, DO Nephrolithiasis (Primary Dx) 12/31/2024 Orders Only [facility] Urology [facility] Office Building [address] [place] [address] Jethro Wbeer, DO Nephrolithiasis (Primary Dx) 12/28/2024 4:29 PM VICE PRESIDENT OF COMPLIANCE - 12/28/2024 6:29 PM VICE PRESIDENT OF COMPLIANCE Surgery [facility] Operating Room [address] [place] [address] Jethro Weber, DO RIGHT URETEROSCOPY - Calculus 12/28/2024 3:52 PM VICE PRESIDENT OF COMPLIANCE Anesthesia Event [facility] Operating Room [address] [place] [address] Guevara Howard, Yana Weaver, AVA 12/28/2024 2:31 PM VICE PRESIDENT OF COMPLIANCE - 12/28/2024 7:11 PM VICE PRESIDENT OF COMPLIANCE Hospital Encounter [facility] Operating Room [address] [place] [address] Jethro Weber, DO Nephrolithiasis (Primary Dx) Discharge Disposition: Discharge to home or self care 12/24/2024 Telephone [facility] Urology [address] [facility] Office Building [address] [place] [address] Bailey Hernandez, CESARIO 12/22/2024 Results Follow-Up [facility] Urology [address] [facility] Office Building [address] [place] [address] Jethro Weber, DO 12/20/[address] [facility] Advanced [facility] ([facility] Urology [address] [facility] Advanced [facility] 11th [place] [address] [place] [address] Jethro Weber, DO 12/19/2024 Telephone [facility] Urology [address] [facility] Office Building [address] [place] [address] Bailey Hernandez, CESARIO 12/18/2024 Telephone [facility] Urology [address] [facility] Office Building [address] [place] [address] Jethro Weber, DO 12/18/2024 Telephone [facility] Surgery [facility] [place] [address] Ghazala Lange 12/16/2024 Results Follow-Up [facility] Urology [address] [facility] Office Building [address] [place] [address] Jethro Weber, DO 12/10/2024 Orders Only [facility] URO SURGERY Jethro Weber, DO 12/10/[address] [facility] Advanced Medicine ([facility]) [facility] Urology [address] [facility] Advanced Medicine 11th [place] [address] [place] [address] Troy Treviño 12/06/2024 Orders Only [facility] Urology [address] [facility] Medical Office Building [address] [place] [address] Jethro Weber, Nephrolithiasis (Primary Dx) 11/21/2024 Telephone [facility] Urology [address] [facility] Medical Office Building [address] [place] [address] Bailey Hernandez RMA 11/20/2024 Telephone [facility] Urology [address] [facility] Medical Office Building [address] [place] [address] Jethro Weber DO 11/13/2024 10:24 AM VICE PRESIDENT OF COMPLIANCE - 11/13/2024 11:59 PM VICE PRESIDENT OF COMPLIANCE Hospital Encounter [facility] Imaging [address] [place] [address] Calculus of kidney Discharge Disposition: Discharge to home or self care 11/01/2024 11:00 AM VICE PRESIDENT OF COMPLIANCE Office Visit [facility] Urology [address] [facility] Medical Office Building [address] [place] [address] Jethro Weber, Calculus of kidney from Last [...] on file Legal Sex Male 7:30 AM VICE PRESIDENT OF COMPLIANCE Gender Identity Not on file Sexual Orientation Not on file Obstetrics History Last Filed Vital Signs Vital Sign Reading Time Taken Comments Blood Pressure 129/60 12/28/2024 6:35 PM VICE PRESIDENT OF COMPLIANCE Pulse 68 12/28/2024 6:40 PM VICE PRESIDENT OF COMPLIANCE Temperature 36.3 C (97.3 F) 12/28/2024 6:50 PM VICE PRESIDENT OF COMPLIANCE Respiratory Rate 11 12/28/2024 6:40 PM VICE PRESIDENT OF COMPLIANCE Oxygen Saturation 98% 12/28/2024 6:40 PM VICE PRESIDENT OF COMPLIANCE Inhaled Oxygen Concentration - - Weight 70.8 kg (156 lb 1.4 oz) 12/28/2024 3:56 P M VICE PRESIDENT OF COMPLIANCE Height 162.6 cm (5' 4 ) 12/05/2024 11:18 AM VICE PRESIDENT OF COMPLIANCE Body Mass Index 26.79 12/05/2024 11:18 AM VICE PRESIDENT OF COMPLIANCE Plan of Treatment Health Maintenance Due Date [...] history exists Medical Devices Implanted Type Area Driver Education Instructor Device Identifier Shelf Expiration Date Model / Serial / Lot [employer] Universa 6fr 24cm [employer] Graduate [employer] Monofilament Tether [id number] - [id number] Implanted:Qty: 1 on 12/28/2024 by Jethro Weber DO at [facility] Right: Ureter [employer] 09/13/2027 [id number] / / [id number] Procedures Procedure Name Priority Date/Time Associated Diagnosis Comments URINALYSIS, MICROSCOPIC ONLY Routine 01/14/2025 12:00 PM CDT Dysuria URINALYSIS AND REFLEX TO MICROSCOPIC Routine 01/14/2025 12:00 PM CDT Dysuria URINE CULTURE Routine 01/14/2025 12:[address] KUB STONE WO CONTRAST Schedule Routine, Read Routine (OP Routine) 01/09/2025 9:55 AM CDT Nephrolithiasis FL FLUOROSCOPY < 1 HOUR IP Routine 12/28/2024 5:36 PM VICE PRESIDENT OF COMPLIANCE SURGICAL PATHOLOGY Routine 12/28/2024 5: 27 PM VICE PRESIDENT OF COMPLIANCE Nephrolithiasis TN AN PROCEDURE PLACEHOLDER Routine 12/28/2024 4:13 PM VICE PRESIDENT OF COMPLIANCE TN AN ELECTIVE ENDOTRACHEAL AIRWAY Routine 12/28/2024 4:13 PM VICE PRESIDENT OF COMPLIANCE PLACEMENT STENT - URETERAL 12/28/2024 3:57 PM VICE PRESIDENT OF COMPLIANCE Nephrolithiasis LASER HOLMIUM 12/28/2024 3:57 PM VICE PRESIDENT OF COMPLIANCE Nephrolithiasis URETEROSCOPY 12/28/2024 3:57 PM VICE PRESIDENT OF COMPLIANCE Nephrolithiasis URINE CULTURE Routine 12/20/2024 9:09 AM VICE PRESIDENT OF COMPLIANCE SCAN - LABS 12/10/2024 2:49 PM VICE PRESIDENT OF COMPLIANCE CT KUB STONE WO CONTRAST Schedule Routine, Read Routine (OP Routine) 11/13/2024 10:30 AM VICE PRESIDENT OF COMPLIANCE Calculus of kidney from Last 3 Months [...] tendency for uric acid stone formation. Source: [facility] [place] Current Interpretive Data was last revised on [...] 0 PM CDT 01/14/2025 8:38 PM CDT [employer] LAB URINE ORDERABLES Final Res ult Performing Organization Address [facility] [employer] de Phone Number VLADIMIR BENAVIDES [address] [facility] [place] [address] * (ABNORMAL) Urinalysis, microscopic only (01/14/2025 12:00 PM CDT) WBC, ur 21-50(A) 0 - 5 /HPF RBC, ur >50(A) 0 - 2 /HPF [facility] Epithelial cells, squamous, ur 1-5 0 - 5 /HPF [facility] Bacteria, ur 1+(A) [facility] Mucous, ur Present(A) [facility] Urine 01/14/2025 12:0 0 PM CDT 01/14/2025 8:38 PM CDT Jethro [employer] LAB URINE ORDERABLES Final Res ult Performing Organization Address [facility] de Phone Number VLADIMIR BENAVIDES [address] [place] [address] * CT KUB Stone WO Contrast (01/09/2025 [...] Jose Palacios M.D. ABIEL: ABIEL Report ID: [id number] Reading Location: [place] [address] Procedure Note Shayan Palacios MD - 01/13/2025 [...] Jose Palacios M.D. ABIEL: ABIEL Report ID: [id number] Reading Location: [id number] Jethro Weber DO IMG CT PROCEDURES Final Result * FL Fluoroscopy < 1 Hour (12/28/2024 5:36 PM VICE PRESIDENT OF COMPLIANCE) Narrative [facility] - 12/28/2024 5:37 PM VICE PRESIDENT OF COMPLIANCE The images from this study are not interpreted by Radiology. Please refer to the physician's procedure / OR operative note. Jethro Weber DO IMG FLUOROSCOPY PROCEDURES Fin al Result [facility] * Surgical pathology (12/28/2024 5:27 PM VICE PRESIDENT OF COMPLIANCE) Tissue (Calculus/calculi /stone, gross and Chemical Analysis) 12/28/2024 5:27 PM VICE PRESIDENT OF COMPLIANCE Narrative PATHOLOGY [facility] - 01/04/2025 12:44 PM CDT EPIC results best viewed via link to PDF [facility] [place] [address] Note to Patients: This report may contain [...] Gender: [place] : 1955 (Age: 69) Address: [address] [place] [address] Hospital #: [id number] Taken:12/28/2024 Received:12/31/2024 Reported: 01/04/2025 Patient Type: [facility] SAME Client [facility] Service: Surgery Location: Physician(s): DO Kamryn [...] cm in greatest dimension). A sales representative marine supplies sample is submitted for chemical analysis. Jar [...] interpretation for this case was performed at [facility], Department of Surgical Pathology, [address] [facility], [place] [id number], [place] [address] CLIA # [id number] The performance characteristics of some immunohistochemical stains, fluorescence in-situ hybridization tests and immunophenotyping by flow cytometry cited in this report (if any) were determined by the Surgical Pathology and Flow Cytometry Departments at [facility] as part of an ongoing director quality assurance program and in compliance with federally mandated [...] Surgical Pathology and Flow Cytometry Departments of [facility]. It has not been cleared or approved by the U. S. Food and Drug Administration. IMAGES AND SCANNED DOCUMENTS, IF INCLUDED, ONLY VIEWABLE IN PDF VERSION OF REPORT us Jethro Weber DO LAB PATHOLOGY ORDERABLES Final Result PATHOLOGY [facility] [phone] * TN AN ELECTIVE ENDOTRACHEAL AIRWAY, TN AN PROCEDURE PLACEHOLDER (12/28/2024 4:13 PM VICE PRESIDENT OF COMPLIANCE) Meera Silva CRNA - 12/28/2024 4:13 PM VICE PRESIDENT OF COMPLIANCE Meera Herrera CRNA 12/28/2024 4:13 PM Airway [...] Result * Urine culture (12/20/2024 9:09 AM VICE PRESIDENT OF COMPLIANCE) Urine culture [employer] Comment: CULTURE, URINE, ROUTINE Micro Number: [id number] Test Status: Final Specimen Source: Urine, clean catch Specimen Quality: Adequate Result: No Growth 12/20/2024 9:09 AM VICE PRESIDENT OF COMPLIANCE 12/20/2024 9:09 AM VICE PRESIDENT OF COMPLIANCE Jethro Weber DO LAB MICROBIOLOGY - GENERAL ORD ERABLES Final Result [facility] [address] [place] [address] * SCAN - LABS (12/10/2024 2:49 PM VICE PRESIDENT OF COMPLIANCE) Jethro Weber DO Final Result * CT KUB Stone WO Contrast (11/13/2024 10:30 AM VICE PRESIDENT OF COMPLIANCE) Anatomical Region Laterality Modality Abdomen N/A Computed Tomogra phy 11/13/2024 10:4 6 AM VICE PRESIDENT OF COMPLIANCE Impressions 11/13/2024 10:46 AM VICE PRESIDENT OF COMPLIANCE 1. Nonobstructing nephrolithiasis including a cast of stones in the right renal lower pole. No ureteral or bladder calculus. 2. Mild biliary duct dilatation. 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 Recommend correlation with liver function tests and consideration of MRCP if clinically indicated. Electronically signed by: César Murray M.D. Narrative 11/13/2024 10:46 AM VICE PRESIDENT OF COMPLIANCE EXAMINATION: Computed tomography of the abdomen and [...] Final Result from Last 3 Months Insurance [employer] CHOICE MEDICARE PPO HU[employer]NA MEDICARE O Member Subscriber Plan / Payer (Ef fective 2020-Present) Name:Ivon Momin Relation to Subscriber:Self Name:Ivon Momin Payer ID:[id number] (NAIC) Type:MEDICARE RISK OTHER Address: [address] [facility] HUMANA MEDICARE HMO Care Teams Alteration Specialist Relationship Specialty Start Date End Date Kamryn Hardy NP [address] [place] [address] PCP - General Family Practice 10/04/24
--- OUTSIDE RECORDS SUMMARY | 2025-01-16 11:44 | XMS_ITS | Encounter Summary ---
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 Source: [facility] Current Interpretive Data was last revised on [...] DO LAB URINE ORDERABLES Final Res ult [facility] [address] [address] Department [place] [address] documented in this encounter Visit Diagnoses Diagnosis Dysuria documented in this encounter Care Teams Book Salesman Relationship Specialty Start Date End Date Kamryn Hardy NP [address] [place] [address] PCP - General Family Practice 10/04/24 documented as of this encounter
[2025-01-16 12:05] LABS: Add Urine Microscopic? YES; Appearance Urine Turbid (Clear); Bacteria Urine 4+ /hpf; Bilirubin Urine Negative (Negative); Blood Urine 3+ (Negative); Color Urine Yellow (Yellow); Glucose Urine UA Negative (Negative); Ketones Urine Negative (Negative); Leukocyte Esterase Ur 3+ LEU/UL (Negative); Need Manual Microscopic Reviewed; Nitrate Urine Positive (Negative); Protein Urine 2+ mg/dL (Negative); Specific Grav Ur 1.015 (1.001-1.035); Squamous Epithelial Cell Urine None Seen /hpf (Few); WBC Urine >100 /hpf (0-3); pH Urine 8.5 (5.0-9.0)
[2025-01-16 12:05] LABS: Alanine Aminotransferase 16 U/L (6-50); Albumin Level 3.6 g/dL (3.5-5.1); Alkaline Phosphatase 81 U/L (38-126); Anion Gap 9 mmol/L (4-12); Aspartate Amino Transferase 16 U/L (17-59); Bilirubin,Total 0.6 mg/dL (0.2-1.3); Blood Urea Nitrogen 18 mg/dL (9-20); Calcium 9.6 mg/dL (8.4-10.2); Carbon Dioxide 22 mmol/L (22-30); Chloride 107 mmol/L (98-107); Estimated CRCL calculation 64 ml/min; Estimated Glomerular Filt Rate > 60; Glucose 109 mg/dL (65-110); Potassium 3.7 mmol/L (3.4-5.0); Sodium 138 mmol/L (137-145)
[2025-01-16 13:33] LABS: CRP 14.8 mg/dL (<1.0)
[2025-01-16] MEDS: SODIUM CHLORIDE 0.9% IV 200 ML 999 ML IV CONT (13:38)
[2025-01-16] MEDS: AZITHROMYCIN 500 MG/NS 250 ML 500 MG/250 ML BAG 250 MG IVPB (14:36)
--- NOTE | 2025-01-16 16:14 | ADMGEN ---
This patient, Art Momin, was admitted to 2 Medical Room 256-. Patient/family oriented to hospital policies and general routines including ID bracelet, bed and alarms, visiting hours, pain management, procedures, bathroom and other care routines, personal items, smoking policy, room service/diet, and visiting hours. Information on how to activate the Rapid Response Team has been discussed. Patient/Family are encouraged to report perceived risks to care and to ask questions if they do not understand what they are told or what they should do.
[2025-01-16 16:46] LABS: Glucose Point of Care 100 mg/dl (65-105)
--- NOTE | 2025-01-16 16:54 | PC.NURSE ---
Shaq, patient [id number], will bring in medication list tonight.
--- OUTSIDE RECORDS SUMMARY | 2025-01-16 17:19 | XMS_ITS | Encounter Summary ---
Author Organization [facility] Address [address] [place] [address] Phone Care Team Providers Care Personnel Security Assistant Name Role Phone FabianoMadisonKamryn bashir Jose HEMMING AND TACKING MACHINE OPERATOR Primary Care Provider + Encounter Details Date Type Department Care Team (Late st Contact Info) Description 01/15/2025 Results Follow-Up [facility] Urology [address] [facility] Medical Office Building [address] [place] [address] Bailey Hernandez RMA Social History [...] on file 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
--- OUTSIDE RECORDS SUMMARY | 2025-01-16 17:19 | XMS_ITS | CONTINUITY OF CARE DOCUMENT ---
Author Name kailash linder Address Unknown Organization [facility] Address [address] [facility] [address] [place] [address] Phone [phone] Care Team Providers Care Skin Toggler Name Role Phone Cash Cuevas MD Unavailable INSURANCE PROVIDERS Payer name Policy type / Coverage type [place] red constitution party ID HUMANA GOLD PLUS HMO HMO [id number]
--- OUTSIDE RECORDS SUMMARY | 2025-01-16 17:19 | XMS_ITS | Encounter Summary ---
Author Organization [facility] Healthcare Address [address] [place] [address] Care Team Providers Care Bakery Technician Name Role Phone Kamryn Hardy TOOL AND DIE INSPECTOR Primary Care Provider + Encounter Details Date Type Department Care Team (Latest Contact Info) Description 01/14/2025 12:00 PM CDT - 01/14/2025 11:59 PM CDT Hospital Encounter 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 Source: [facility] Current Interpretive Data was last revised on [...] DO LAB URINE ORDERABLES Final Res ult [facility] [address] [address] [place] [address] documented in this encounter Visit Diagnoses Diagnosis Dysuria documented in this encounter Care Teams Bakery Technician Relationship Specialty Start Date End Date Kamryn Hardy NP [address] [place] [address] PCP - General Family Practice 10/04/24 documented as of this encounter
--- OUTSIDE RECORDS SUMMARY | 2025-01-16 17:19 | XMS_ITS | Encounter Summary ---
Author Organization [facility] Address [address] [facility] [address] [place] [address] Phone Care Team Providers Care Mathematics Faculty Member Name Role Phone FabianoMadisonKamryn bashir Jose ADJUNCT INSTRUCTOR OF WOMEN'S STUDIES Primary Care Provider + Encounter Details Date Type Department Care Team (Late st Contact Info) Description 01/16/2025 Telephone [facility] Urology [address] [facility] Medical Office Building [address] [place] [address] Jethro Weber, DO [address] [facility] [place] [address] Social History Tobacco Use Types Packs/Day Years [...] on file 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
--- OUTSIDE RECORDS SUMMARY | 2025-01-16 17:19 | XMS_ITS | Encounter Summary ---
Author Organization [facility] Address [address] [facility] [address] [place] [address] Phone Care Team Providers Care Forestry Aid Name Role Phone Kamryn Hardy SCREENING TECH Primary Care Provider + Encounter Details Date Type Department Care Team (Late st Contact Info) Description 12/22/2024 Results Follow-Up [facility] Urology [address] [facility] Medical Office Building [address] [place] [address] Jethro Weber DO [address] [facility] [place] [address] Social History Tobacco Use Types Packs/Day Years [...] on file Legal Sex Male 7:30 AM SR VICE PRESIDENT Gender Identity Not on file Sexual Orientation Not on file documented as of this encounter Plan of Treatment Not on file documented as of this encounter Visit Diagnoses Not on filedocumented in this encounter Care Teams Forestry Aid Relationship Specialty Start Date End Date Kamryn Hardy NP [address] [place] [address] PCP - General Family Practice 10/04/24 documented as of this encounter
--- OUTSIDE RECORDS SUMMARY | 2025-01-16 17:19 | XMS_ITS | Encounter Summary ---
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 He would like to know how to proceed. Patient Provider: Jethro Weber Medical/Surgical Information: Outcome/Plan: documented in this encounter Plan of Treatment Not on file documented as of this encounter Visit Diagnoses Not on filedocumented in this encounter Care Teams Repeat Photocomposing Machine Operator Relationship Specialty Start Date End Date Kamryn Hardy NP [address] [place] [address] PCP - General Family Practice 10/04/24 documented as of this encounter
--- OUTSIDE RECORDS SUMMARY | 2025-01-16 17:19 | XMS_ITS | Encounter Summary ---
Author Organization [facility] Address [address] [facility] [address] [place] [address] Phone Care Team Providers Care Conservation Of Resources Commissioner Name Role Phone Kamryn Hardy ACCOUNT CLASSIFICATION CLERK Primary Care Provider + Encounter Details Date Type Department Care Team (Late st Contact Info) Description 01/15/2025 Orders Only [facility] Urology [address] [facility] Medical Office Building [address] [place] [address] Jethro Weber, DO [address] [facility] [place] [address] Social History Tobacco Use Types Packs/Day Years [...] on file 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
--- OUTSIDE RECORDS SUMMARY | 2025-01-16 17:19 | XMS_ITS | Encounter Summary ---
Author Organization [facility] Address [address] [facility] [address] [place] [address] Phone Care Team Providers Care Catalyst Plant Supervisor Name Role Phone Kamryn Hardy STAMP CLERK Primary Care Provider + Encounter Details Date Type Department Care Team (Late st Contact Info) Description 01/16/2025 Results Follow-Up 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
--- OUTSIDE RECORDS SUMMARY | 2025-01-16 17:19 | XMS_ITS | Encounter Summary ---
Author Organization [facility] Address [address] [facility] [address] [place] [address] Phone Care Team Providers Care Publishing Specialist Name Role Phone Kamryn Hardy ONION TOPPER Primary Care Provider + Encounter Details Date Type Department Care Team (Late st Contact Info) Description 12/16/2024 Results Follow[facility]Up [facility] Urology [address] [facility] Medical Office Building [address] [place] [address] Jethro Weber DO [address] [facility] [place] [address] Social History Tobacco Use Types Packs/Day Years [...] on file 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
--- OUTSIDE RECORDS SUMMARY | 2025-01-16 17:20 | XMS_ITS | Referral Summary ---
Author Organization [facility] [address] Address [address] [place] [address] Care Team Providers Care Judge Name Role Phone Lalajoseph Kamryn Jose ESCALANTE Primary Care Provider + Encounters Date Type Department Care Team Description 01/16/2025 Telephone [facility] Urology [address] [place] [address] Office [facility] [address] [place] [address] Jethro Weber, DO 01/16/2025 Results Follow-Up [facility] Urology [facility] Office [facility] [address] [place] [address] Jethro Weber, DO 01/16/2025 Telephone [facility] Surgery [address] [place] [address] Thelma Hernandez 01/15/2025 Results Follow-Up [facility] Urology [address] [place] [address] Office [facility] [address] [place] [address] Bailey Hernandez RMA 01/15/2025 Orders Only [facility] Urology [address] [place] [address] Office [facility] [address] [place] [address] Jethro Weber, DO 01/14/2025 12:00 PM CDT - 01/14/2025 11:59 PM CDT Hospital Encounter [address] [place] [address] Dysuria Discharge Disposition: Discharge to home or self care 01/14/2025 12:00 PM CDT Lab [facility] Outpatient Lab at [address] [address] 01/14/2025 Orders Only [facility] Urology [address] [facility] Medical Office Building [address] [place] [address] Jethro Weber, Dysuria (Primary Dx) 01/14/2025 Telephone [facility] Surgery [facility] [place] [address] Roselia Anna EMT 01/09/2025 9:47 AM CDT - 01/09/2025 11:59 PM CDT Hospital Encounter [address] [address] Nephrolithiasis Discharge Disposition: Discharge to home or self care 12/31/2024 Orders Only [facility] Urology [address] [facility] Office Building [address] [place] [address] Jethro Weber, Nephrolithiasis (Primary Dx) 12/31/2024 Orders Only [facility] Urology [address] [facility] Office Building [address] [place] [address] Jethro Weber, Nephrolithiasis (Primary Dx) 12/28/2024 4:29 PM PROP AND SCENERY MAKER - 12/28/2024 6:29 PM PROP AND SCENERY MAKER Surgery [facility] Operating Room [address] [place] [address] Jethro Weber, DO RIGHT URETEROSCOPY - Calculus 12/28/2024 3:52 PM PROP AND SCENERY MAKER Anesthesia Event [facility] Operating Room [address] [place] [address] Guevara Howard, Yana Weaver, AVA 12/28/2024 2:31 PM PROP AND SCENERY MAKER - 12/28/2024 7:11 PM PROP AND SCENERY MAKER Hospital Encounter [facility] Operating Room [address] [place] [address] Jethro Weber, DO Nephrolithiasis (Primary Dx) Discharge Disposition: Discharge to home or self care 12/24/2024 Telephone [facility] Urology [address] [facility] Office Building [address] [place] [address] Bailey Hernandez, A 12/22/2024 Results Follow-Up [facility] Urology [address] [facility] Office Building [address] [place] [address] Jethro Weber, DO 12/20/2024 Orders Only [facility] Urology [address] [place] [address] [facility] 11th [place] [address] [place] [address] Jethro Weber, DO 12/19/2024 Telephone [facility] Urology [address] [facility] Office Building [address] [place] [address] Bailey Hernandez, Bret 12/18/2024 Telephone [facility] Urology [address] [facility] Office Building [address] [place] [address] Jethro Weber, DO 12/18/2024 Telephone [facility] Surgery [address] [place] [address] Ghazala Lange 12/16/2024 Results Follow-Up [facility] Urology [address] [facility] Office Building [address] [place] [address] Jethro Weber, DO 12/10/2024 Orders Only [facility] URO SURGERY Jethro Weber, DO 12/10/[address] [facility] Urology [facility] 11th [place] [address] [place] [address] Troy Treviño 12/06/2024 Orders Only [facility] Urology [address] [facility] Office Building [address] [place] [address] Jethro Weber, Nephrolithiasis (Primary Dx) 11/21/2024 Telephone [facility] Urology [address] [facility] Office Building [address] [place] [address] Bailye Hernandez RMA 11/20/2024 Telephone [facility] Urology [address] [facility] Office Building [address] [place] [address] Jethro Weber DO 11/13/2024 10:24 AM PROP AND SCENERY MAKER - 11/13/2024 11:59 PM PROP AND SCENERY MAKER Hospital Encounter [facility] Imaging [address] [place] [address] Calculus of kidney Discharge Disposition: Discharge to home or self care 11/01/2024 11:00 AM PROP AND SCENERY MAKER Office Visit [facility] Urology [address] [place] [address] Office [address] [place] [address] Jethro Weber, DO Calculus of kidney from [...] on file Legal Sex Male 7:30 AM PROP AND SCENERY MAKER Gender Identity Not on file Sexual Orientation Not on file Last Filed Vital Signs Vital Sign Reading Time Taken Comments Blood Pressure 129/60 12/28/2024 6:35 PM PROP AND SCENERY MAKER Pulse 68 12/28/2024 6:40 PM PROP AND SCENERY MAKER Temperature 36.3 C (97.3 F) 12/28/2024 6:50 PM PROP AND SCENERY MAKER Respiratory Rate 11 12/28/2024 6:40 PM PROP AND SCENERY MAKER Oxygen Saturation 98% 12/28/2024 6:40 PM PROP AND SCENERY MAKER Inhaled Oxygen Concentration - - Weight 70.8 kg (156 lb 1.4 oz) 12/28/2024 3:56 P M PROP AND SCENERY MAKER Height 162.6 cm (5' 4 ) 12/05/2024 11:18 AM PROP AND SCENERY MAKER Body Mass Index 26.79 12/05/2024 11:18 AM PROP AND SCENERY MAKER Plan of Treatment Not on file Medical Devices Implanted Type Area Fisher Eel Spear Device Identifier Shelf Expiration Date Model / Serial / Lot [employer] 6fr 24cm [employer] Monofilament Tether [id number] - [id number] Implanted:Qty: 1 on 12/28/2024 by Jethro Weber DO at [facility] Right: [employer] 09/13/2027 [id number] / / [id number] Procedures Procedure Name Priority Date/Time Associated Diagnosis Comments URINALYSIS, MICROSCOPIC ONLY Routine 01/14/2025 12:00 PM CDT Dysuria URINALYSIS AND REFLEX TO MICROSCOPIC Routine 01/14/2025 12:00 PM CDT Dysuria URINE CULTURE Routine 01/14/2025 12:[address] KUB STONE WO CONTRAST Schedule Routine, Read Routine (OP Routine) 01/09/2025 9:55 AM CDT Nephrolithiasis FL FLUOROSCOPY < 1 HOUR IP Routine 12/28/2024 5:36 PM PROP AND SCENERY MAKER SURGICAL PATHOLOGY Routine 12/28/2024 5: 27 PM PROP AND SCENERY MAKER Nephrolithiasis MN AN PROCEDURE PLACEHOLDER Routine 12/28/2024 4:13 PM PROP AND SCENERY MAKER MN AN ELECTIVE ENDOTRACHEAL AIRWAY Routine 12/28/2024 4:13 PM PROP AND SCENERY MAKER PLACEMENT STENT - URETERAL 12/28/2024 3:57 PM PROP AND SCENERY MAKER Nephrolithiasis LASER HOLMIUM 12/28/2024 3:57 PM PROP AND SCENERY MAKER Nephrolithiasis URETEROSCOPY 12/28/2024 3:57 PM PROP AND SCENERY MAKER Nephrolithiasis URINE CULTURE Routine 12/20/2024 9:09 AM PROP AND SCENERY MAKER SCAN - LABS 12/10/2024 2:49 PM PROP AND SCENERY MAKER CT KUB STONE WO CONTRAST Schedule Routine, Read Routine (OP Routine) 11/13/2024 10:30 AM PROP AND SCENERY MAKER Calculus of kidney from Last 3 Months [...] tendency for uric acid stone formation. Source: [facility] [employer] Current Interpretive Data was last revised on [...] 0 PM CDT 01/14/2025 8:38 PM CDT VisualCV LAB URINE ORDERABLES Final Res ult Performing Organization Address [facility] Co de Phone Number [employer] [address] Department [place] [address] * (ABNORMAL) Urinalysis, microscopic only (01/14/2025 12:00 PM CDT) WBC, ur 21-50(A) 0 - 5 /HPF RBC, ur >50(A) 0 - 2 /HPF CERNER CH Epithelial cells, squamous, ur 1-5 0 - 5 /HPF CERNER CH Bacteria, ur 1+(A) CERNER CH Mucous, ur Present(A) CERNER CH Urine 01/14/2025 12:0 0 PM CDT 01/14/2025 8:38 PM CDT VisualCV LAB URINE ORDERABLES Final Res ult Performing Organization Address [facility]/ZIP Co de Phone Number VLADIMIR KENNEDY [address] [place] [address] * CT KUB Stone WO [...] Jose Palacios M.D. ABIEL: ABIEL Report ID: [id number] Reading Location: [id number] Procedure Note Shayan Palacios MD - 01/13/2025 [...] Jose Palacios M.D. ABIEL: ABIEL Report ID: [id number] Reading Location: [id number] Jethro CubaRyley Weber DO IMG CT PROCEDURES Final Result * FL Fluoroscopy < 1 Hour (12/28/2024 5:36 PM PROP AND SCENERY MAKER) Narrative RAD_PACS_[facility] - 12/28/2024 5:37 PM PROP AND SCENERY MAKER The images from this study are not interpreted by Radiology. Please refer to the physician's procedure / OR operative note. Jethro Rosa ElenaRyley Gus DO IMG FLUOROSCOPY PROCEDURES Fin al Result RAD_PACS_BJW[facility] * Surgical pathology (12/28/2024 5:27 PM PROP AND SCENERY MAKER) Tissue (Calculus/calculi /stone, gross and Chemical Analysis) 12/28/2024 5:27 PM PROP AND SCENERY MAKER Narrative PATHOLOGY [facility] - 01/04/2025 12:44 PM CDT EPIC results best viewed via link to PDF [facility] Idania Roberts [facility] [place] [address] Note to Patients: This report may contain [...] Gender: M : 1955 (Age: 69) Address: [facility] [address] GARCIA [facility] [place] [address] [facility] #: [id number] Taken:12/28/2024 Received:12/31/2024 Reported: 01/04/2025 Patient Type: [facility] EP SAME Client BJW Service: Surgery Location: Physician(s): Jethro Weber, DO Kamryn Hardy, JAKE Peirre M.D. Diagnosis: Right kidney, stone, removal - [...] calculi (0.1-0.4 cm in greatest dimension). A nutrition representative sample is submitted for chemical analysis. [...] interpretation for this case was performed at [facility], Department of Surgical Pathology, [address] [facility] [address], [id number], [place] [address] CLIA # [id number] The performance characteristics of some immunohistochemical stains, fluorescence in-situ hybridization tests and immunophenotyping by flow cytometry cited in this report (if any) were determined by the Surgical Pathology and Flow Cytometry Departments at [facility] as part of an ongoing automotive quality manager program and in compliance with [...] Surgical Pathology and Flow Cytometry Departments of [facility]. It has not been cleared or approved by the U. S. Food and Drug Administration. IMAGES AND SCANNED DOCUMENTS, IF INCLUDED, ONLY VIEWABLE IN PDF VERSION OF REPORT Jethro Weber DO LAB PATHOLOGY ORDERABLES Final Result PATHOLOGY [facility] [phone] * MN AN ELECTIVE ENDOTRACHEAL AIRWAY, MN AN PROCEDURE PLACEHOLDER (12/28/2024 4:13 PM PROP AND SCENERY MAKER) Meera Silva CRNA - 12/28/2024 4:13 PM PROP AND SCENERY MAKER Meera Herrera CRNA 12/28/2024 4:13 PM Airway [...] Result * Urine culture (12/20/2024 9:09 AM PROP AND SCENERY MAKER) [facility] Comment: CULTURE, URINE, ROUTINE Micro Number: [id number] Test Status: Final Specimen Source: Urine, clean catch Specimen Quality: Adequate Result: No Growth 12/20/2024 9:09 AM PROP AND SCENERY MAKER 12/20/2024 9:09 AM PROP AND SCENERY MAKER Jethro Weber DO LAB MICROBIOLOGY - GENERAL ORD ERABLES Final Result [facility] [address] [place] [address] * SCAN - LABS (12/10/2024 2:49 PM PROP AND SCENERY MAKER) Jethro Weber DO Final Result * CT KUB Stone WO Contrast (11/13/2024 10:30 AM PROP AND SCENERY MAKER) Anatomical Region Laterality Modality Abdomen N/A Computed Tomogra phy 11/13/2024 10:4 6 AM PROP AND SCENERY MAKER Impressions 11/13/2024 10:46 AM PROP AND SCENERY MAKER 1. Nonobstructing nephrolithiasis including a cast of stones in the right renal lower pole. No ureteral or bladder calculus. 2. Mild biliary duct dilatation. 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 Recommend correlation with liver function tests and consideration of MRCP if clinically indicated. Electronically signed by: César Murray M.D. Narrative 11/13/2024 10:46 AM PROP AND SCENERY MAKER EXAMINATION: Computed tomography of the abdomen and [...] Final Result from Last 3 Months Insurance [employer]PREP [employer] MEDICARE O HUMANA MEDICARE HMO [facility] HUMANA MEDICARE HMO Care Teams Judge Relationship Specialty Start Date End Date Kamryn Hardy NP [address] [place] [address] PCP - General Family Practice 10/04/24
--- OUTSIDE RECORDS SUMMARY | 2025-01-16 17:20 | XMS_ITS | Clinical Summary ---
Author Organization [facility] [address] [facility] [address] Address [address] [place] [address] Care Team Providers Care Car Trimmer Name Role Phone Kamryn Hardy Jose WELDING MACHINE OPERATOR FRICTION Primary Care Provider + Allergies Active Allergy [...] Type Department Care Team Description 01/16/2025 Telephone [facility] Urology [address] [place] [address] Office [facility] [address] [place] [address] Jethro Weber H., DO 01/16/2025 Results Follow-Up [facility] Urology [facility] Office Building [address] [place] [address] Jethro Weber H., DO 01/16/2025 Telephone [facility] Surgery [address] [place] [address] Thelma Hernandez 01/15/2025 Results Follow-Up [facility] Urology [facility] Office Building [address] [place] [address] Bailey Hernandez RMA 01/15/2025 Orders Only [facility] Urology [address] [place] [address] Office Building [address] [place] [address] Jethro Weber H., DO 01/14/2025 12:00 PM CDT - 01/14/2025 11:59 PM CDT Hospital Encounter [address] [address] Dysuria Discharge Disposition: Discharge to home or self care 01/14/2025 12:00 PM CDT Lab [facility] Outpatient Lab at [address] [address] 01/14/2025 Orders Only [facility] Urology [address] [facility] Medical Office Building [address] [place] [address] Jethro Weber, DO Dysuria (Primary Dx) 01/14/2025 Telephone [facility] Surgery [address] [place] [address] Roselia Anna EMT 01/09/2025 9:47 AM CDT - 01/09/2025 11:59 PM CDT Hospital Encounter [address] [address] Nephrolithiasis Discharge Disposition: Discharge to home or self care 12/31/2024 Orders Only [facility] Urology [address] [facility] Medical Office Building [address] [place] [address] Jethro Weber, DO Nephrolithiasis (Primary Dx) 12/31/2024 Orders Only [facility] Urology [facility] Office Building [address] [place] [address] Jethro Weber, DO Nephrolithiasis (Primary Dx) 12/28/2024 4:29 PM FIBROUS WALLBOARD INSPECTOR - 12/28/2024 6:29 PM FIBROUS WALLBOARD INSPECTOR Surgery [facility] Operating Room [address] [place] [address] Jethro Weber, DO RIGHT URETEROSCOPY - Calculus 12/28/2024 3:52 PM FIBROUS WALLBOARD INSPECTOR Anesthesia Event [facility] Operating Room [address] [place] [address] Guevara Howard, Yana Weaver, AVA 12/28/2024 2:31 PM FIBROUS WALLBOARD INSPECTOR - 12/28/2024 7:11 PM FIBROUS WALLBOARD INSPECTOR Hospital Encounter [facility] Operating Room [address] [place] [address] Jethro Weber, DO Nephrolithiasis (Primary Dx) Discharge Disposition: Discharge to home or self care 12/24/2024 Telephone [facility] Urology [address] [facility] Office Building [address] [place] [address] Bailey Hernandez, CESARIO 12/22/2024 Results Follow-Up [facility] Urology [address] [facility] Office Building [address] [place] [address] Jethro Weber, DO 12/20/2024 Orders Only [facility] Advanced [facility] ([facility] Urology [address] [facility] [place] Advanced [facility] 11th [place] [address] [place] [address] Jethro Weber, DO 12/19/2024 Telephone [facility] Urology [address] [facility] Office Building [address] [place] [address] Bailey Hernandez, CESARIO 12/18/2024 Telephone [facility] Urology [address] [facility] Office Building [address] [place] [address] Jethro Weber, DO 12/18/2024 Telephone [facility] Surgery [facility] [place] [address] Ghazala Lange 12/16/2024 Results Follow-Up [facility] Urology [address] [facility] Office Building [address] [place] [address] Jethro Weber, DO 12/10/2024 Orders Only [facility] URO SURGERY Jethro Weber, DO 12/10/2024 Telephone [facility] Advanced Medicine ([facility]) [facility] Urology [address] [facility] [place] Advanced Medicine 11th [place] [address] [place] [address] Troy Treviño 12/06/2024 Orders Only [facility] Urology [address] [facility] Medical Office Building [address] [place] [address] Jethro Weber, Nephrolithiasis (Primary Dx) 11/21/2024 Telephone [facility] Urology [address] [facility] Medical Office Building [address] [place] [address] Bailey Hernandez RMA 11/20/2024 Telephone [facility] Urology [address] [facility] Medical Office Building [address] [place] [address] Jethro Weber DO 11/13/2024 10:24 AM FIBROUS WALLBOARD INSPECTOR - 11/13/2024 11:59 PM FIBROUS WALLBOARD INSPECTOR Hospital Encounter [facility] Imaging [address] [place] [address] Calculus of kidney Discharge Disposition: Discharge to home or self care 11/01/2024 11:00 AM FIBROUS WALLBOARD INSPECTOR Office Visit [facility] Urology [address] [facility] Medical Office Building [address] [place] [address] Jethro Weber, Calculus of kidney from Last [...] on file Legal Sex Male 7:30 AM FIBROUS WALLBOARD INSPECTOR Gender Identity Not on file Sexual Orientation Not on file Obstetrics History Last Filed Vital Signs Vital Sign Reading Time Taken Comments Blood Pressure 129/60 12/28/2024 6:35 PM FIBROUS WALLBOARD INSPECTOR Pulse 68 12/28/2024 6:40 PM FIBROUS WALLBOARD INSPECTOR Temperature 36.3 C (97.3 F) 12/28/2024 6:50 PM FIBROUS WALLBOARD INSPECTOR Respiratory Rate 11 12/28/2024 6:40 PM FIBROUS WALLBOARD INSPECTOR Oxygen Saturation 98% 12/28/2024 6:40 PM FIBROUS WALLBOARD INSPECTOR Inhaled Oxygen Concentration - - Weight 70.8 kg (156 lb 1.4 oz) 12/28/2024 3:56 P M FIBROUS WALLBOARD INSPECTOR Height 162.6 cm (5' 4 ) 12/05/2024 11:18 AM FIBROUS WALLBOARD INSPECTOR Body Mass Index 26.79 12/05/2024 11:18 AM FIBROUS WALLBOARD INSPECTOR Plan of Treatment Health Maintenance Due Date [...] history exists Medical Devices Implanted Type Area Service Consultant Device Identifier Shelf Expiration Date Model / Serial / Lot [employer] 6fr 24cm [employer] Monofilament Tether [id number] - [id number] Implanted:Qty: 1 on 12/28/2024 by Jethro Weber DO at [facility] Right: Ureter [employer] 09/13/2027 [id number] / / [id number] Procedures Procedure Name Priority Date/Time Associated Diagnosis Comments URINALYSIS, MICROSCOPIC ONLY Routine 01/14/2025 12:00 PM CDT Dysuria URINALYSIS AND REFLEX TO MICROSCOPIC Routine 01/14/2025 12:00 PM CDT Dysuria URINE CULTURE Routine 01/14/2025 12:[address] KUB STONE WO CONTRAST Schedule Routine, Read Routine (OP Routine) 01/09/2025 9:55 AM CDT Nephrolithiasis FL FLUOROSCOPY < 1 HOUR IP Routine 12/28/2024 5:36 PM FIBROUS WALLBOARD INSPECTOR SURGICAL PATHOLOGY Routine 12/28/2024 5: 27 PM FIBROUS WALLBOARD INSPECTOR Nephrolithiasis UT AN PROCEDURE PLACEHOLDER Routine 12/28/2024 4:13 PM FIBROUS WALLBOARD INSPECTOR UT AN ELECTIVE ENDOTRACHEAL AIRWAY Routine 12/28/2024 4:13 PM FIBROUS WALLBOARD INSPECTOR PLACEMENT STENT - URETERAL 12/28/2024 3:57 PM FIBROUS WALLBOARD INSPECTOR Nephrolithiasis LASER HOLMIUM 12/28/2024 3:57 PM FIBROUS WALLBOARD INSPECTOR Nephrolithiasis URETEROSCOPY 12/28/2024 3:57 PM FIBROUS WALLBOARD INSPECTOR Nephrolithiasis URINE CULTURE Routine 12/20/2024 9:09 AM FIBROUS WALLBOARD INSPECTOR SCAN - LABS 12/10/2024 2:49 PM FIBROUS WALLBOARD INSPECTOR CT KUB STONE WO CONTRAST Schedule Routine, Read Routine (OP Routine) 11/13/2024 10:30 AM FIBROUS WALLBOARD INSPECTOR Calculus of kidney from Last 3 Months [...] tendency for uric acid stone formation. Source: [facility] [place] Current Interpretive Data was last revised on [...] 0 PM CDT 01/14/2025 8:38 PM CDT NI LAB URINE ORDERABLES Final Res ult Performing Organization Address [facility] Co de Phone Number VLADIMIR BENAVIDES [address] [address] [facility] [place] [address] * (ABNORMAL) Urinalysis, microscopic only (01/14/2025 12:00 PM CDT) WBC, ur 21-50(A) 0 - 5 /HPF RBC, ur >50(A) 0 - 2 /HPF [facility] Epithelial cells, squamous, ur 1-5 0 - 5 /HPF CERNER Bacteria, ur 1+(A) CERNER Mucous, ur Present(A) [facility] Urine 01/14/2025 12:0 0 PM CDT 01/14/2025 8:38 PM CDT Jethro [employer] LAB URINE ORDERABLES Final Res ult Performing Organization Address [facility] de Phone Number VLADIMIR BENAVIDES [address] [place] [address] * CT KUB Stone WO Contrast (01/09/2025 [...] Jose Palacios M.D. ABIEL: ABIEL Report ID: [id number] Reading Location: [place] [address] Procedure Note Shayan Palacios MD - 01/13/2025 [...] Jose Palacios M.D. ABIEL: ABIEL Report ID: [id number] Reading Location: [id number] Jethro Weber DO IMG CT PROCEDURES Final Result * FL Fluoroscopy < 1 Hour (12/28/2024 5:36 PM FIBROUS WALLBOARD INSPECTOR) Narrative [facility] - 12/28/2024 5:37 PM FIBROUS WALLBOARD INSPECTOR The images from this study are not interpreted by Radiology. Please refer to the physician's procedure / OR operative note. Jethro Weber DO IMG FLUOROSCOPY PROCEDURES Fin al Result [facility] * Surgical pathology (12/28/2024 5:27 PM FIBROUS WALLBOARD INSPECTOR) Tissue (Calculus/calculi /stone, gross and Chemical Analysis) 12/28/2024 5:27 PM FIBROUS WALLBOARD INSPECTOR Narrative PATHOLOGY [facility] - 01/04/2025 12:44 PM CDT EPIC results best viewed via link to PDF [facility] [place] [address] Note to Patients: This report may contain [...] Gender: [place] : 1955 (Age: 69) Address: [address] [place] [address] Hospital #: [id number] Taken:12/28/2024 Received:12/31/2024 Reported: 01/04/2025 Patient Type: [facility] SAME [facility] Service: Surgery Location: Physician(s): DO Kamryn [...] calculi (0.1-0.4 cm in greatest dimension). A high school admissions representative sample is submitted for chemical analysis. [...] interpretation for this case was performed at [facility], Department of Surgical Pathology, [address] [facility] [place] [id number], [place] [address] CLIA # [id number] The performance characteristics of some immunohistochemical stains, fluorescence in-situ hybridization tests and immunophenotyping by flow cytometry cited in this report (if any) were determined by the Surgical Pathology and Flow Cytometry Departments at [facility] as part of an ongoing manufacturing quality manager program and in compliance with [...] Surgical Pathology and Flow Cytometry Departments of [facility]. It has not been cleared or approved by the U. S. Food and Drug Administration. IMAGES AND SCANNED DOCUMENTS, IF INCLUDED, ONLY VIEWABLE IN PDF VERSION OF REPORT us Jethro Weber DO LAB PATHOLOGY ORDERABLES Final Result PATHOLOGY [facility] [phone] * UT AN ELECTIVE ENDOTRACHEAL AIRWAY, UT AN PROCEDURE PLACEHOLDER (12/28/2024 4:13 PM FIBROUS WALLBOARD INSPECTOR) Meera Silva CRNA - 12/28/2024 4:13 PM FIBROUS WALLBOARD INSPECTOR Meera Herrera CRNA 12/28/2024 4:13 PM Airway [...] Result * Urine culture (12/20/2024 9:09 AM FIBROUS WALLBOARD INSPECTOR) [facility] Comment: CULTURE, URINE, ROUTINE Micro Number: [id number] Test Status: Final Specimen Source: Urine, clean catch Specimen Quality: Adequate Result: No Growth 12/20/2024 9:09 AM FIBROUS WALLBOARD INSPECTOR 12/20/2024 9:09 AM FIBROUS WALLBOARD INSPECTOR Jethro Weber DO LAB MICROBIOLOGY - GENERAL ORD ERABLES Final Result [facility] [address] [place] [address] * SCAN - LABS (12/10/2024 2:49 PM FIBROUS WALLBOARD INSPECTOR) Jethro Weber DO Final Result * CT KUB Stone WO Contrast (11/13/2024 10:30 AM FIBROUS WALLBOARD INSPECTOR) Anatomical Region Laterality Modality Abdomen N/A Computed Tomogra phy 11/13/2024 10:4 6 AM FIBROUS WALLBOARD INSPECTOR Impressions 11/13/2024 10:46 AM FIBROUS WALLBOARD INSPECTOR 1. Nonobstructing nephrolithiasis including a cast of stones in the right renal lower pole. No ureteral or bladder calculus. 2. Mild biliary duct dilatation. 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 Recommend correlation with liver function tests and consideration of MRCP if clinically indicated. Electronically signed by: César Murray M.D. Narrative 11/13/2024 10:46 AM FIBROUS WALLBOARD INSPECTOR EXAMINATION: Computed tomography of the abdomen and [...] suspicious osseous lesion or fracture. Procedure Note Césra Murray MD - 11/13/2024 EXAMINATION: Computed tomography [...] Final Result from Last 3 Months [employer] PPO [employer] MED[employer]ARE O Member Subscriber Plan / Payer (Ef fective 2020-Present) Name:Ivon Momin Relation to Subscriber:Self Name:Ivon Momin Payer ID:[id number] (NAIC) Type:MEDICARE RISK OTHER Address: [address] [facility] [employer] MEDICARE HMO Care Teams Car Trimmer Relationship Specialty Start Date End Date Kamryn Hardy NP [address] [place] [address] PCP - General Family Practice 10/04/24
[2025-01-16] MEDS: AMPICILLIN SULB 3 GM/NS 100 ML 3 GM/100 ML VIAL IVPB (17:49)
[2025-01-16 22:00] LABS: Glucose Point of Care 111 mg/dl (65-105)
--- NOTE | 2025-01-16 22:13 | PC.NURSE ---
Pt has been extremely agitated since the beginning of this shift. At first he was requesting his medications. This RN explained to the pt multiple times that we are waiting on the provider to resume his medications. This RN notified the provider about pt's request and about the pt becoming agitated. Waiting provider to resume medications. Pt continues to get more agitated, demanding his medications and saying: f.... you to staff.
[2025-01-16] MEDS: risperiDONE 1 MG TABLET 4 MG PO (22:26)
[2025-01-16] MEDS: TEMAZEPAM (*CRX) 15 MG CAPSULE PO (22:26)
[2025-01-16] MEDS: traZODone HCL 50 MG TABLET 100 MG PO (22:26)
[2025-01-16] MEDS: clonazePAM (*CRX) 0.25 MG TABLET PO (22:26)
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
[2025-01-17] MEDS: AMPICILLIN SULB 3 GM/NS 100 ML 3 GM/100 ML VIAL IVPB ×5 (02:45→23:50)
[2025-01-17] MEDS: ACETAMINOPHEN 325 MG TABLET 650 MG PO (03:06)
[2025-01-17 05:06] LABS: Hemoglobin 9.5 g/dL (14.0-18.0); Immature Granulocyte Absolute 0.06 K/mm3 (0.00-0.031); Immature Granulocyte Percent A 1.2 % (0-0.5); Immature Platelet Fraction Pct 6.9 % (0.9-11.2); Lymphocytes Absolute Auto 0.42 K/mm3 (0.9-3.2); Lymphocytes Percent Auto 8.4 % (18.3-44.2); Mean Corpuscular HGB Conc 31.7 g/dl (32-36); Mean Corpuscular Hemoglobin 29.6 pg (26-34); Mean Corpuscular Volume 93.5 fl (80-100); Mean Platelet Volume 13.1 fl (7.4-10.4); Monocytes Absolute Auto 0.4 K/mm3 (0.1-0.6); Monocytes Percent Auto 8.8 % (2.6-8.5); Neutrophils Absolute Auto 4.1 K/mm3 (1.3-6.7); Neutrophils Percent Auto 81.6 % (45.5-73.1); Platelet Count Result 70 k/mm3 (150-375); Red Blood Count 3.21 M/mm3 (4.6-6.20)
[2025-01-17 05:17] LABS: Anion Gap 2 mmol/L (4-12); Blood Urea Nitrogen 16 mg/dL (9-20); Calcium 8.8 mg/dL (8.4-10.2); Carbon Dioxide 23 mmol/L (22-30); Chloride 110 mmol/L (98-107); Estimated CRCL calculation 78 ml/min; Estimated Glomerular Filt Rate > 60; Glucose 95 mg/dL (65-110); Potassium 3.6 mmol/L (3.4-5.0); Sodium 135 mmol/L (137-145)
[2025-01-17 05:33] LABS: Platelet Estimate Decreased (Adequate)
[2025-01-17 05:34] LABS: Basophilic Stippling 1+; Burr Cells 1+; Ovalocytes 1+; Schistocytes None Seen
[2025-01-17 06:00] VITALS: BP 128/75; PULSE 77; RESP 20; TEMP 36.8; O2SAT 97
[2025-01-17 08:21] LABS: Glucose Point of Care 93 mg/dl (65-105)
--- NOTE | 2025-01-17 09:15 | P.CDI_ITS ---
CDI Query Clarification Request Please review the clinical information below and clarify the relationship, if any, between the conditions listed below. * Yes, UTI was possibly due to/related to recent stent placement * No, UTI was not due to/related to recent stent placement * Other, please specify * Unable to determine The medical chart reflects the following: (2) Urinary tract infection: Qualifiers: Hematuria presence: with hematuria Urinary tract infection type: acute cystitis Qualified Code(s): N30.01 - Acute cystitis with hematuria Code(s): N39.0 - Urinary tract infection, site not specified Status: Acute Assessment and Plan: - UA consistent with UTI - urine culture obtained on 01/16, follow - recent stent placement on December 28 - micro reviewed, Proteus mirabilis in May of 2024 resistant to Ancef and M acrobid. Treatment: Ampicillin IVPB Azithromycin IVPB Ceftriaxone x1 IVPB <Val Malagon RN - Last Filed: 01/17/25 09:20> Clarified Diagnosis Clarified Diagnosis: Yes, UTI was possibly due to/related to recent stent placement <Sumemr Gresham APRN - Last Filed: 01/17/25 15:39>
[2025-01-17] MEDS: DICLOFENAC SOD 25 MG TABLET.EC 50 MG PO ×2 (09:19→17:08)
[2025-01-17] MEDS: guaiFENesin 12 HR 600 MG TABCR PO ×2 (09:19→19:59)
[2025-01-17] MEDS: GABAPENTIN 400 MG CAPSULE 1200 MG PO ×2 (09:19→17:08)
[2025-01-17] MEDS: ASPIRIN 81 MG ENTERIC TABLET PO (09:19)
[2025-01-17] MEDS: DULoxetine HCL 30 MG CAPSULE.DR PO (09:19)
[2025-01-17] MEDS: ATORVASTATIN 40 MG TABLET PO (09:19)
[2025-01-17] MEDS: PANTOPRAZOLE 40 MG TABLET PO ×2 (09:19→19:59)
[2025-01-17] MEDS: OMEGA 3 POLYUNSAT FATTY ACIDS 1 GM CAP PO ×4 (09:19→17:08)
[2025-01-17] MEDS: clonazePAM (*CRX) 0.25 MG TABLET PO ×2 (09:19→19:58)
[2025-01-17] MEDS: CHOLECALCIFEROL 1,000 UNITS TABLET 2000 UNITS PO (09:20)
[2025-01-17] MEDS: lisinopriL 20 MG TABLET 40 MG PO (09:20)
[2025-01-17] MEDS: TOPIRAMATE 100 MG TABLET 200 MG PO ×2 (09:20→19:58)
--- NOTE | 2025-01-17 11:28 | P.PNIM_ITS ---
Progress Note: A&P Assessment and Plan (1) Pneumonia: Qualifiers: Laterality: right Lung location: upper lobe of lung Pneumonia type: due to unspecified organism Qualified Code(s): J18.9 - Pneumonia, unspecified organism Code(s): J18.9 - Pneumonia, unspecified organism Status: Acute Assessment and Plan: patient is on a modified diet, thickened liquids due to lack of teeth. This factor coupled with the pneumonia occupying his upper lobe raises concerns for aspiration. Will cover with Unasyn and azithromycin, patient has concurrent UTI with previous resistance to Macrobid and Ancef * CXR: Right upper lobe pneumonia with small right pleural effusion. * check MRSA PCR and sputum culture * viral PCR negative * no current O2 requirement PRN oxygen * Patient is refusing his speech evaluation for swallow evaluation * Normal WBC (2) Urinary tract infection: Qualifiers: Hematuria presence: with hematuria Urinary tract infection type: acute cystitis Qualified Code(s): N30.01 - Acute cystitis with hematuria Code(s): N39.0 - Urinary tract infection, site not specified Status: Acute Assessment and Plan: Spoke with patient's urologist at [facility] U recent UA which was pansensitive except for resistance to Macrobid I recommended oral Augmentin at discharge which he agrees with * UA consistent with UTI * urine culture obtained on 01/16, follow * recent stent placement on December 28 * Blood cultures NGTD (3) Chronic obstructive pulmonary disease: Qualifiers: COPD type: unspecified COPD Qualified Code(s): J44.9 - Chronic obstructive pulmonary disease, unspecified Code(s): J44.9 - Chronic obstructive pulmonary disease, unspecified Status: Chronic Assessment and Plan: Patient does not appear in exacerbation * [place] p.r.n. * no current wheezing or increased sputum production concerning for exacerbation, on ABX for pneumonia. If patient develops wheezing, consider initiation of steroids. (4) Essential (primary) hypertension: Code(s): I10 - Essential (primary) hypertension Status: Chronic Assessment and Plan: * chronic, currently 140/74 * continue home medications: Lisinopril 40 mg daily * monitor Plan Code status: Full code per patient DVT prophylaxis: SCD's Stress ulcer prophylaxis: Protonix 40 daily PT/OT notes: Pending Disposition: Patient admitted for pneumonia and UTI UA was pansensitive per his previous urologist 3 days prior will continue current treatment plan likely switch to oral antibiotic tomorrow patient's plan is to return home with caregiver. Time Spent With Patient Time with patient: 15 - 25 minutes Subjective Date/time seen: 01/17/25 11:28 Interval history: Patient is a 69-year-old male admitted to the medical unit for further treatment pneumonia and concurrent UTI. 01/17/25L assumed Care Patient on RA in no acute distress. Spoke with patient caregiver and urologist regarding treatment for UTI and pneumonia. Did voice my concern about possible aspiration since patient is in a modified diet however patient does not want a speech evaluation or swallow evaluation. Normal WBC. scant cough but denies any further SOB or fever. Review of Systems 2 Review of Systems: All systems reviewed & are unremarkable except as noted in HPI and below Exam Const: General: comfortable and no acute distress Other: , male, chronically ill-appearing, disheveled HENMT: Mouth: Yes moist mucous membranes Other: No teeth present Eyes: General: appearance normal, both eyes and all related structures Neck: Neck: supple Resp: Auscultation: diminished lung sounds on the right Cardio: Rate: regular rate Rhythm: regular rhythm GI: GI Palp: Yes Soft to palpation Auscultation: normal bowel sounds Skin: General skin exam: normal color and no rashes or lesions noted Wounds: no wounds Neuro: Cranial nerves: Yes Equal, round and reactive pupils present Speech: normal speech Sensory Exam: normal sensation Other: A&O x4 Extrem: General: normal to inspection Psych: Mental Status: mental status grossly normal Affect: normal affect Objective Data Vital Signs Vital Signs: Vital Signs - 24 hr 01/16/25 13:35 01/16/25 14:36 01/16/25 16:29 Temperature Pulse Rate 68 69 73 Respiratory Rate 14 16 Blood Pressure 97/57 L 122/59 L 117/61 Pulse Oximetry 97 97 98 Oxygen Delivery 01/16/25 17:13 01/16/25 17:32 01/16/25 17:37 Temperature 98.8 F Pulse Rate 76 Respiratory Rate 18 Blood Pressure 117/61 Pulse Oximetry 94 94 Oxygen Delivery Room Air 01/16/25 20:00 01/16/25 21:27 01/17/25 06:00 Temperature 98 F 98.2 F Pulse Rate 76 65 77 Respiratory Rate 18 20 20 Blood Pressure 140/74 128/75 Pulse Oximetry 94 97 97 Oxygen Delivery Room Air Intake/Output Intake/Output: Intake & Output 01/14/25 01/15/25 01/16/25 01/17/25 23:59 23:59 23:59 23:59 Intake Total 3080 730 Output Total 1000 Balance 3080 -270 Meds/Results Medications: Active Medications Generic Name Dose Route Start Last Admin Trade Name Freq PRN Reason Stop Dose Admin Acetaminophen 650 mg 01/16/25 23:18 01/17/25 03:06 Acetaminophen 325 Mg Tablet PO 650 mg Q6H PRN Administration Mild Pain (1-3) or Fever Albuterol/Ipratropium 3 ml 01/16/25 23:18 Ipratropium 0.5 Mg/Albuterol Sulfate 2.5 Mg Ampul.Neb 3 Ml INHALATION Q6HRT PRN Shortness Of Breath Or Wheezing Aspirin 81 mg 01/17/25 09:00 01/17/25 09:19 Aspirin 81 Mg Enteric Tablet PO 81 mg DAILY JESSIKA Administration Atorvastatin Calcium 40 mg 01/17/25 09:00 01/17/25 09:19 Atorvastatin 40 Mg Tablet PO 40 mg DAILY JESSIKA Administration Azithromycin 500 mg 01/17/25 11:25 Azithromycin 250 Mg Tablet PO 01/20/25 09:01 DAILY JESSIKA Benzonatate 100 mg 01/16/25 23:18 Benzonatate 100 Mg Capsule PO TID PRN Cough Clonazepam 0.25 mg 01/16/25 22:10 01/17/25 09:19 Clonazepam (*Crx) 0.25 Mg Tablet PO 0.25 mg Q12HR JESSIKA Administration Dextrose 12.5 gm 01/16/25 16:23 Dextrose 50% 25 Gm/50 Ml Syringe IV PUSH PRN PRN Hypoglycemia Protocol Diclofenac Sodium 50 mg 01/17/25 09:00 01/17/25 09:19 Diclofenac Sod 25 Mg Tablet.Ec PO 50 mg BID JESSIKA Administration Duloxetine HCl 30 mg 01/17/25 09:00 01/17/25 09:19 Duloxetine Hcl 30 Mg Capsule.Dr PO 30 mg DAILY JESSIKA Administration Fish Oil 1 gm 01/17/25 06:00 01/17/25 09:19 [place] 3 Polyunsat Fatty Acids 1 Gm Cap PO 1 gm 6XD JESSIKA Administration Gabapentin 1,200 mg 01/17/25 09:00 01/17/25 09:19 Gabapentin 400 Mg Capsule PO 1,200 mg BID JESSIKA Administration Glucagon 1 mg 01/16/25 16:23 Glucagon For Inj 1 Mg Vial IM PRN PRN Hypoglycemia Protocol Glucose 15 gm 01/16/25 16:23 Glucose Oral Gel 15 Gm Of Glucse In 37.5 Gm Tube PO PRN PRN Hypoglycemia Protocol Guaifenesin 600 mg 01/17/25 09:00 01/17/25 09:19 Guaifenesin 12 Hr 600 Mg Tabcr PO 600 mg Q12HR JESSIKA Administration Ampicillin Sodium/Sulbactam Sodium 3 gm in 100 mls @ 200 mls/hr 01/16/25 17:00 01/17/25 06:29 Unasyn 3 Gm/Ns 100 Ml IVPB Infused Q6HR JESSIKA Infusion Dextrose 1,000 mls @ 100 mls/hr 01/16/25 16:23 Dextrose 5% 1,000 Ml IVPB PRN PRN Hypoglycemia Protocol Lidocaine 1 patch 01/17/25 10:40 Lidocaine 5% Patch TRANSDERM DAILY PRN pain Lisinopril 40 mg 01/17/25 09:00 01/17/25 09:20 Lisinopril 20 Mg Tablet PO 40 mg DAILY JESSIKA Administration Miscellaneous Information 1 each 01/16/25 23:22 Central Supply Item Tolnaftate Powder (Sub For Miconza[place] Powder) XX 01/17/25 23:21 PRN PRN Informational Pantoprazole Sodium 40 mg 01/17/25 09:00 01/17/25 09:19 Pantoprazole 40 Mg Tablet PO 40 mg Q12HR JESSIKA Administration Phenazopyridine HCl 100 mg 01/16/25 23:12 Phenazopyridine Hcl 100 Mg Tablet PO BID PRN urinary pain Risperidone 4 mg 01/16/25 22:20 01/16/25 22:26 Risperidone 1 Mg Tablet PO 4 mg HS JESSIKA Administration Temazepam 15 mg 01/16/25 22:10 01/16/25 22:26 Temazepam (*Crx) 15 Mg Capsule PO 15 mg QHS PRN Administration sleep Topiramate 200 mg 01/17/25 09:00 01/17/25 09:20 Topiramate 100 Mg Tablet PO 200 mg Q12HR JESSIKA Administration Trazodone HCl 100 mg 01/16/25 22:10 01/16/25 22:26 Trazodone Hcl 50 Mg Tablet PO 100 mg 2100 JESSIKA Administration Trazodone HCl 50 mg 01/17/25 18:00 Trazodone Hcl 50 Mg Tablet PO 1800 [facility] Umeclidinium [place] 1 puff 01/17/25 08:00 01/17/25 09:00 Umeclidinium [place] 62.5 Mcg Ellipta INHALATION Not Given DAILYRT [facility] Vitamin D 2,000 units 01/17/25 09:00 01/17/25 09:20 Cholecalciferol 1,000 Units Tablet PO 2,000 units DAILY JESSIKA Administration Radiology Results: ITS Impressions Abdomen/Pelvis CT 01/16/25 12:25 IMPRESSION: 1. Right-sided pneumonia. 2. Small pericardial effusion. 3. Right internal ureteral stent in expected position. Chest X-Ray 01/16/25 12:29 Impression: 1: Right upper lobe pneumonia with small right pleural effusion. Labs Labs: Laboratory Results - last 24 hr 01/16/25 01/16/25 01/16/25 10:45 11:15 16:44 WBC RBC Hgb Hct MCV MCH MCHC RDW Plt Count MPV Immature Gran % (Auto) Neut % (Auto) Lymph % (Auto) [place] % (Auto) Eos % (Auto) Baso % (Auto) Lymph # (Auto) [place] # (Auto) Eos # (Auto) Baso # (Auto) Abs Immat Gran (auto) Absolute Neuts (auto) Absolute Nucleated RBC Band Neutrophils % Nucleated RBC % Platelet Estimate % Immature Plt Fraction Basophilic Stippling Ovalocytes Jackson Cells Schistocytes PT 15.6 H INR 1.2 APTT 40.0 H Sodium 138 Potassium 3.7 Chloride 107 Carbon Dioxide 22 Anion Gap 9 BUN 18 Creatinine 0.91 Estim Creat Clear Calc 64 Estimated GFR > 60 Glucose 109 POC Capillary Glucose 100 Calcium 9.6 Total Bilirubin 0.6 AST 16 L ALT 16 Alkaline Phosphatase 81 C-Reactive Protein 14.8 H Total Protein 6.0 L Albumin 3.6 Urine Color Yellow Urine Appearance Turbid H Urine pH 8.5 Ur Specific [place] 1.015 Urine Protein 2+ H Urine Glucose (UA) Negative Urine Ketones Negative Ur Blood (Man) 3+ H Urine Nitrate Positive H Urine Bilirubin Negative Urine Urobilinogen 1.0 Add Ur Microanalysis Reviewed Leukocyte Esterase Rfl 3+ H Urine RBC 3-5 H Urine WBC >100 H Ur Squamous Epith Cells None seen Urine Bacteria 4+ Urine Casts 11-01/16/25 01/17/25 01/17/25 21:58 04:47 08:15 WBC 5.0 RBC 3.21 L Hgb 9.5 L Hct 30.0 L MCV 93.5 MCH 29.6 MCHC 31.7 L RDW 13.0 Plt Count 70 L MPV 13.1 H Immature Gran % (Auto) 1.2 H Neut % (Auto) 81.6 H Lymph % (Auto) 8.4 L [place] % (Auto) 8.8 H Eos % (Auto) 0.0 Baso % (Auto) 0.0 L Lymph # (Auto) 0.42 L [place] # (Auto) 0.4 Eos # (Auto) 0.0 Baso # (Auto) 0.0 Abs Immat Gran (auto) 0.06 H Absolute Neuts (auto) 4.1 Absolute Nucleated RBC 0.000 Band Neutrophils % Not Reportable Nucleated RBC % 0.0 Platelet Estimate Decreased % Immature Plt Fraction 6.9 Basophilic Stippling 1+ Ovalocytes 1+ Jackson Cells 1+ Schistocytes None seen PT INR APTT Sodium 135 L Potassium 3.6 Chloride 110 H Carbon Dioxide 23 Anion Gap 2 L BUN 16 Creatinine 0.74 Estim Creat Clear Calc 78 Estimated GFR > 60 Glucose 95 POC Capillary Glucose 111 H 93 Calcium 8.8 Total Bilirubin AST ALT Alkaline Phosphatase C-Reactive Protein Total Protein Albumin Urine Color Urine Appearance Urine pH Ur Specific [place] Urine Protein Urine Glucose (UA) Urine Ketones Ur Blood (Man) Urine Nitrate Urine Bilirubin Urine Urobilinogen Add Ur Microanalysis Leukocyte Esterase Rfl Urine RBC Urine WBC Ur Squamous Epith Cells Urine Bacteria Urine Casts Quality VTE Prophylaxis VTE prophylaxis: mechanical ordered -Patient's previous records reviewed on admission -ER notes reviewed in detail on admission -discussed all findings and current treatment plan with patient/Family/POA -Consultations reviewed for recommendations -Patient's disposition for safe discharge discussed with therapeutic case manager Dictation performed by [employer] direct speech recognition software, therefore machine paint mixer variants and typographical errors may occur. Hospitalist MIPS Advance Care Plan I have confirmed that the patient's Advanced Care Plan is present, code status is documented, or surrogate decision maker is listed in patient medical record.: Yes Medication Reconciliation I have utilized all available resources to obtain, update and review the patients current medications (includes all prescriptions, OTC, herbals, ca nnabis, and nutritional supplements).: Yes The patient is not eligible for med reconciliation; the patient is in a emergent medical situation where delaying treatment would jeopardize the patients health.: No
[2025-01-17] MEDS: AZITHROMYCIN 250 MG TABLET 500 MG PO (11:50)
[2025-01-17 14:00] VITALS: BP 117/59; PULSE 63; RESP 18; TEMP 37; O2SAT 97
[2025-01-17] MEDS: risperiDONE 1 MG TABLET 4 MG PO (19:58)
[2025-01-17] MEDS: traZODone HCL 50 MG TABLET 150 MG PO (20:00)
[2025-01-17 22:00] VITALS: BP 129/63; PULSE 66; RESP 18; TEMP 37.2; O2SAT 95
[2025-01-18 06:00] VITALS: BP 118/63; PULSE 60; RESP 18; TEMP 36.6; O2SAT 98
[2025-01-18] MEDS: AMPICILLIN SULB 3 GM/NS 100 ML 3 GM/100 ML VIAL IVPB ×2 (06:16→12:33)
[2025-01-18] MEDS: ATORVASTATIN 40 MG TABLET PO (08:41)
[2025-01-18] MEDS: DULoxetine HCL 30 MG CAPSULE.DR PO (08:41)
[2025-01-18] MEDS: ASPIRIN 81 MG ENTERIC TABLET PO (08:41)
[2025-01-18] MEDS: DICLOFENAC SOD 25 MG TABLET.EC 50 MG PO ×2 (08:41→17:09)
[2025-01-18] MEDS: lisinopriL 20 MG TABLET 40 MG PO (08:42)
[2025-01-18] MEDS: guaiFENesin 12 HR 600 MG TABCR PO ×2 (08:42→20:07)
[2025-01-18] MEDS: clonazePAM (*CRX) 0.25 MG TABLET PO ×2 (08:42→20:07)
[2025-01-18] MEDS: PANTOPRAZOLE 40 MG TABLET PO ×2 (08:42→20:07)
[2025-01-18] MEDS: AZITHROMYCIN 250 MG TABLET 500 MG PO (08:42)
[2025-01-18] MEDS: TOPIRAMATE 100 MG TABLET 200 MG PO ×2 (08:42→20:07)
[2025-01-18] MEDS: GABAPENTIN 400 MG CAPSULE 1200 MG PO ×2 (08:42→17:09)
[2025-01-18] MEDS: CHOLECALCIFEROL 1,000 UNITS TABLET 2000 UNITS PO (08:42)
[2025-01-18 09:26] VITALS: PULSE 66; RESP 16; O2SAT 97
[2025-01-18] MEDS: UMECLIDINIUM BROMIDE 62.5 MCG ELLIPTA 1 PUFF INHALATION (09:26)
--- NOTE | 2025-01-18 10:06 | P.PNIM_ITS ---
Progress Note: A&P Assessment and Plan (1) Pneumonia: Qualifiers: Laterality: right Lung location: upper lobe of lung Pneumonia type: due to unspecified organism Qualified Code(s): J18.9 - Pneumonia, unspecified organism Code(s): J18.9 - Pneumonia, unspecified organism Status: Acute Assessment and Plan: patient is on a modified diet, thickened liquids due to lack of teeth. This factor coupled with the pneumonia occupying his upper lobe raises concerns for aspiration. Will cover with Unasyn and azithromycin, patient has concurrent UTI with previous resistance to Macrobid and Ancef * CXR: Right upper lobe pneumonia with small right pleural effusion. * check MRSA PCR and sputum culture * viral PCR negative * no current O2 requirement PRN oxygen * Patient is refusing his speech evaluation for swallow evaluation * Normal WBC not on antib as there is no indication - IS, up tot he chair tid with meals -monitor for aspiration but pt is refusing speech eval (2) Urinary tract infection: Qualifiers: Hematuria presence: with hematuria Urinary tract infection type: acute cystitis Qualified Code(s): N30.01 - Acute cystitis with hematuria Code(s): N39.0 - Urinary tract infection, site not specified Status: Acute Assessment and Plan: Spoke with patient's urologist at [facility] U recent UA which was pansensitive except for resistance to Macrobid I recommended oral Augmentin at discharge which he agrees with * UA consistent with UTI * urine culture obtained on 01/16, follow * recent stent placement on December 28 * Blood cultures NGTD ua/culture collected- waiting for final results- continue iv antibiotics for now (3) Chronic obstructive pulmonary disease: Qualifiers: COPD type: unspecified COPD Qualified Code(s): J44.9 - Chronic obstructive pulmonary disease, unspecified Code(s): J44.9 - Chronic obstructive pulmonary disease, unspecified Status: Chronic Assessment and Plan: Patient does not appear in exacerbation * [place] p.r.n. * no current wheezing or increased sputum production concerning for exacerbation, on ABX for pneumonia. If patient develops wheezing, consider initiation of steroids. (4) Essential (primary) hypertension: Code(s): I10 - Essential (primary) hypertension Status: Chronic Assessment and Plan: * chronic, currently 140/74 * continue home medications: Lisinopril 40 mg daily * monitor Plan Code status: Full code per patient DVT prophylaxis: SCD's Stress ulcer prophylaxis: Protonix 40 daily PT/OT notes: Pending Disposition: Patient admitted for pneumonia and UTI UA was pansensitive per his previous urologist 3 days prior will continue current treatment plan likely switch to oral antibiotic tomorrow patient's plan is to return home with caregiver. Time Spent With Patient Time with patient: 25 - 35 minutes Subjective Date/time seen: 01/18/25 10:06 Interval history: Patient is a 69-year-old male admitted to the medical unit for further treatment pneumonia and concurrent UTI. 01/17/25L assumed Care Patient on RA in no acute distress. Spoke with patient caregiver and urologist regarding treatment for UTI and pneumonia. Did voice my concern about possible aspiration since patient is in a modified diet however patient does not want a speech evaluation or swallow evaluation. Normal WBC. scant cough but denies any further SOB or fever. 01/18 assuming care. PT is seen and examined. Resting with eyes closed. voicing no complains. Pending PT/OT eval to help with discharge planning. Review of Systems Review of Systems: All systems reviewed & are unremarkable except as noted in HPI and below Exam Const: General: comfortable and no acute distress Other: , male, chronically ill-appearing, disheveled HENMT: Face/Nose/Sinus: Normal nares present Mouth: Yes moist mucous membranes and Yes dry mucous membranes Other: No teeth present Eyes: General: appearance normal, both eyes and all related structures Sclera: sclerae normal Pupils: Equal, round and reactive pupils present EOM: EOMs intact bilaterally Neck: Neck: supple Resp: Effort & Inspection: normal respiratory effort Auscultation: diminished lung sounds on the right Other: Coarse right base. No wheezing. Cardio: Rate: regular rate Rhythm: regular rhythm Other: Occasional ectopy, no murmur. GI: Auscultation: normal bowel sounds Other: Abdomen soft, nondistended, nontender. Normoactive bowel sounds in all quadrants. Skin: General skin exam: normal color and no rashes or lesions noted Wounds: no wounds Neuro: Cranial nerves: Yes Equal, round and reactive pupils present Speech: normal speech Motor exam (neuro): 5/5 motor strength present throughout S ensory Exam: normal sensation Other: A&O x4 Extrem: General: normal to inspection Psych: Mental Status: mental status grossly normal Affect: normal affect and Hostile affect present Objective Data Vital Signs Vital Signs: Vital Signs - 24 hr 01/17/25 14:00 01/17/25 20:00 01/17/25 22:00 Temperature 98.6 F 98.9 F Pulse Rate 63 66 Respiratory Rate 18 18 Blood Pressure 117/59 L 129/63 Pulse Oximetry 97 95 Oxygen Delivery Room Air Fraction of Inspired Oxygen 01/18/25 06:00 01/18/25 09:26 01/18/25 09:26 Temperature 97.9 F Pulse Rate 60 66 Respiratory Rate 18 16 Blood Pressure 118/63 Pulse Oximetry 98 97 Oxygen Delivery Room Air Fraction of Inspired Oxygen 21 Intake/Output Intake/Output: Intake & Output 01/15/25 01/16/25 01/17/25 01/18/25 23:59 23:59 23:59 23:59 Intake Total 3080 1650 680 Output Total 1400 2600 Balance 5390 -074 -6760 Meds/Results Medications: Active Medications Generic Name Dose Route Start Last Admin Trade Name Prakash PRN Reason Stop Dose Admin Acetaminophen 650 mg 01/16/25 23:18 01/17/25 03:06 Acetaminophen 325 Mg Tablet PO 650 mg Q6H PRN Administration Mild Pain (1-3) or Fever Albuterol/Ipratropium 3 ml 01/16/25 23:18 Ipratropium 0.5 Mg/Albuterol Sulfate 2.5 Mg Ampul.Neb 3 Ml INHALATION Q6HRT PRN Shortness Of Breath Or Wheezing Aspirin 81 mg 01/17/25 09:00 01/18/25 08:41 Aspirin 81 Mg Enteric Tablet PO 81 mg DAILY JESSIKA Administration Atorvastatin Calcium 40 mg 01/17/25 09:00 01/18/25 08:41 Atorvastatin 40 Mg Tablet PO 40 mg DAILY JESSIKA Administration Azithromycin 500 mg 01/17/25 11:25 01/18/25 08:42 Azithromycin 250 Mg Tablet PO 01/20/25 09:01 500 mg DAILY JESSIKA Administration Benzonatate 100 mg 01/16/25 23:18 Benzonatate 100 Mg Capsule PO TID PRN Cough Clonazepam 0.25 mg 01/16/25 22:10 01/18/25 08:42 Clonazepam (*Crx) 0.25 Mg Tablet PO 0.25 mg Q12HR JESSIKA Administration Dextrose 12.5 gm 01/16/25 16:23 Dextrose 50% 25 Gm/50 Ml Syringe IV PUSH PRN PRN Hypoglycemia Protocol Diclofenac Sodium 50 mg 01/17/25 09:00 01/18/25 08:41 Diclofenac Sod 25 Mg Tablet.Ec PO 50 mg BID JESSIKA Administration Duloxetine HCl 30 mg 01/17/25 09:00 01/18/25 08:41 Duloxetine Hcl 30 Mg Capsule.Dr PO 30 mg DAILY JESSIKA Administration Fish Oil 1 gm 01/17/25 06:00 01/18/25 08:42 [place] 3 Polyunsat Fatty Acids 1 Gm Cap PO Not Given 6XD JESSIKA Gabapentin 1,200 mg 01/17/25 09:00 01/18/25 08:42 Gabapentin 400 Mg Capsule PO 1,200 mg BID JESSIKA Administration Glucagon 1 mg 01/16/25 16:23 Glucagon For Inj 1 Mg Vial IM PRN PRN Hypoglycemia Protocol Glucose 15 gm 01/16/25 16:23 Glucose Oral Gel 15 Gm Of Glucse In 37.5 Gm Tube PO PRN PRN Hypoglycemia Protocol Guaifenesin 600 mg 01/17/25 09:00 01/18/25 08:42 Guaifenesin 12 Hr 600 Mg Tabcr PO 600 mg Q12HR JESSIKA Administration Ampicillin Sodium/Sulbactam Sodium 3 gm in 100 mls @ 200 mls/hr 01/16/25 17:00 01/18/25 06:46 Unasyn 3 Gm/Ns 100 Ml IVPB Infused Q6HR JESSIKA Infusion Dextrose 1,000 mls @ 100 mls/hr 01/16/25 16:23 Dextrose 5% 1,000 Ml IVPB PRN PRN Hypoglycemia Protocol Lidocaine 1 patch 01/17/25 10:40 Lidocaine 5% Patch TRANSDERM DAILY PRN pain Lisinopril 40 mg 01/17/25 09:00 01/18/25 08:42 Lisinopril 20 Mg Tablet PO 40 mg DAILY JESSIKA Administration Pantoprazole Sodium 40 mg 01/17/25 09:00 01/18/25 08:42 Pantoprazole 40 Mg Tablet PO 40 mg Q12HR JESSIKA Administration Phenazopyridine HCl 100 mg 01/16/25 23:12 Phenazopyridine Hcl 100 Mg Tablet PO BID PRN urinary pain Risperidone 4 mg 01/16/25 22:20 01/17/25 19:58 Risperidone 1 Mg Tablet PO 4 mg HS JESSIKA Administration Temazepam 15 mg 01/16/25 22:10 01/16/25 22:26 Temazepam (*Crx) 15 Mg Capsule PO 15 mg QHS PRN Administration sleep Topiramate 200 mg 01/17/25 09:00 01/18/25 08:42 Topiramate 100 Mg Tablet PO 200 mg Q12HR JESSIKA Administration Trazodone HCl 150 mg 01/17/25 21:00 01/17/25 20:00 Trazodone Hcl 50 Mg Tablet PO 150 mg 2100 JESSIKA Administration Umeclidinium [place] 1 puff 01/17/25 08:00 01/18/25 09:26 Umeclidinium [place] 62.5 Mcg Ellipta INHALATION 1 puff DAILYRT JESSIKA Administration Vitamin D 2,000 units 01/17/25 09:00 01/18/25 08:42 Cholecalciferol 1,000 Units Tablet PO 2,000 units DAILY JESSIKA Administration Radiology Results: ITS Impressions Abdomen/Pelvis CT 01/16/25 12:25 IMPRESSION: 1. Right-sided pneumonia. 2. Small pericardial effusion. 3. Right internal ureteral stent in expected position. Chest X-Ray 01/16/25 12:29 Impression: 1: Right upper lobe pneumonia with small right pleural effusion. Quality VTE Prophylaxis VTE prophylaxis: mechanical ordered
[2025-01-18 14:00] VITALS: BP 129/66; PULSE 64; RESP 12; TEMP 36.9; O2SAT 96
--- NOTE | 2025-01-18 15:14 | PCPTNOTE ---
pt refused PT evaluation 1509; unable to convince him to get OOB, walk or do leg exercises; he agreed to try tomorrow.
[2025-01-18] MEDS: AMOXICILLIN/CLAVULANATE K 875-125 MG TAB 1 TABLET PO (18:07)
[2025-01-18] MEDS: risperiDONE 1 MG TABLET 4 MG PO (20:07)
[2025-01-18] MEDS: traZODone HCL 50 MG TABLET 150 MG PO (20:07)
[2025-01-18 21:03] VITALS: BP 138/67; PULSE 60; RESP 18; TEMP 37.2; O2SAT 97
[2025-01-19 04:10] VITALS: BP 139/65; PULSE 55; RESP 20; TEMP 36.3; O2SAT 98
[2025-01-19] MEDS: DULoxetine HCL 30 MG CAPSULE.DR PO (08:27)
[2025-01-19] MEDS: lisinopriL 20 MG TABLET 40 MG PO (08:27)
[2025-01-19] MEDS: AMOXICILLIN/CLAVULANATE K 875-125 MG TAB 1 TABLET PO (08:28)
[2025-01-19] MEDS: TOPIRAMATE 100 MG TABLET 200 MG PO (08:28)
[2025-01-19] MEDS: ATORVASTATIN 40 MG TABLET PO (08:28)
[2025-01-19] MEDS: AZITHROMYCIN 250 MG TABLET 500 MG PO (08:28)
[2025-01-19] MEDS: DICLOFENAC SOD 25 MG TABLET.EC 50 MG PO (08:28)
[2025-01-19] MEDS: GABAPENTIN 400 MG CAPSULE 1200 MG PO (08:29)
[2025-01-19] MEDS: CHOLECALCIFEROL 1,000 UNITS TABLET 2000 UNITS PO (08:29)
[2025-01-19] MEDS: guaiFENesin 12 HR 600 MG TABCR PO (08:29)
[2025-01-19] MEDS: ASPIRIN 81 MG ENTERIC TABLET PO (08:29)
[2025-01-19] MEDS: PANTOPRAZOLE 40 MG TABLET PO (08:29)
[2025-01-19] MEDS: clonazePAM (*CRX) 0.25 MG TABLET PO (08:29)
[2025-01-19] MEDS: UMECLIDINIUM BROMIDE 62.5 MCG ELLIPTA 1 PUFF INHALATION (09:44)
--- NOTE | 2025-01-19 12:20 | P.DS_ITS ---
DS: Admitting Diagnosis Discharge Date Admitting Diagnosis fever DS: Discharge Diagnosis Discharge Diagnosis (1) Pneumonia: Qualifiers: Laterality: right Lung location: upper lobe of lung Pneumonia type: due to unspecified organism Qualified Code(s): J18.9 - Pneumonia, unspecified organism Code(s): J18.9 - Pneumonia, unspecified organism Status: Acute Assessment and Plan: patient is on a modified diet, thickened liquids due to lack of teeth. This factor coupled with the pneumonia occupying his upper lobe raises concerns for aspiration. Will cover with Unasyn and azithromycin, patient has concurrent UTI with previous resistance to Macrobid and Ancef * CXR: Right upper lobe pneumonia with small right pleural effusion. * check MRSA PCR and sputum culture * viral PCR negative * no current O2 requirement PRN oxygen * Patient is refusing his speech evaluation for swallow evaluation * Normal WBC not on antib as there is no indication - IS, up tot he chair tid with meals -monitor for aspiration but pt is refusing speech eval (2) Urinary tract infection: Qualifiers: Hematuria presence: with hematuria Urinary tract infection type: acute cystitis Qualified Code(s): N30.01 - Acute cystitis with hematuria Code(s): N39.0 - Urinary tract infection, site not specified Status: Acute Assessment and Plan: Spoke with patient's urologist at [facility] recent UA which was pansensitive except for resistance to Macrobid I recommended oral Augmentin at discharge which he agrees with * UA consistent with UTI * urine culture obtained on 01/16, follow * recent stent placement on December 28 * Blood cultures NGTD ua/culture collected- waiting for final results- continue iv antibiotics for now (3) Chronic obstructive pulmonary disease: Qualifiers: COPD type: unspecified COPD Qualified Code(s): J44.9 - Chronic obstructive pulmonary disease, unspecified Code(s): J44.9 - Chronic obstructive pulmonary disease, unspecified Status: Chronic Assessment and Plan: Patient does not appear in exacerbation * DuoNebs p.r.n. * no current wheezing or increased sputum production concerning for exacerbation, on ABX for pneumonia. If patient develops wheezing, consider i nitiation of steroids. (4) Essential (primary) hypertension: Code(s): I10 - Essential (primary) hypertension Status: Chronic Assessment and Plan: * chronic, currently 140/74 * continue home medications: Lisinopril 40 mg daily * monitor Plan Code status: Full code per patient DVT prophylaxis: SCD's Stress ulcer prophylaxis: Protonix 40 daily PT/OT notes: Pending Disposition: Patient admitted for pneumonia and UTI UA was pansensitive per his previous urologist 3 days prior will continue current treatment plan likely switch to oral antibiotic tomorrow patient's plan is to return home with caregiver. DS: Summary Hospital Course Hospital Course: 69 y/o M with PMH of PTSD, anxiety, bipolar depression, GERD, dyslipidemia, COPD, diabetes (diet controlled, not on medications), and kidney stones presents here with fever. The patient presents here from home for further evaluation of fever. He reports the fever is accompanied by shortness of breath, chills, and a productive cough. He denies abdominal pain, flank pain, dysuria, nausea, vomiting, diarrhea, body aches. He does report he has had some intermittent hematuria, however he had a a recent ureteral stent placed on December 28, and he reports it has been occurring since stent placement and he has previously had this symptom with prior stent placements. Plan for stent removal on 01/29. Care was discussed with patient's urologist at [facility] recent UA which was pansensitive except for resistance to Macrobid I recommended oral Augmentin at discharge which he agrees with * UA consistent with UTI * urine culture obtained on 01/16, follow * recent stent placement on December 28 * Blood cultures NGTD * pt still need 7 more doses of augmentin and 1 more dose for azith * pt is stable for discharge Status at Discharge Functional status at discharge: uses cane/walker Overall status at discharge: patient is progressing back to baseline Time Spent with Patient Time attestation: Total time spent providing and/or coordinating discharge services: Time spent: Greater than 30 minutes Exam Const: General: comfortable and no acute distress Other: , male, chronically ill-appearing, disheveled HENMT: Face/Nose/Sinus: Normal nares present Mouth: Yes moist mucous membranes and Yes dry mucous membranes Other: No teeth present Eyes: General: appearance normal, both eyes and all related structures Sclera: sclerae normal Pupils: Equal, round and reactive pupils present EOM: EOMs intact bilaterally Neck: Neck: supple Resp: Effort & Inspection: normal respiratory effort Auscultation: diminished lung sounds on the right Other: Coarse right base. No wheezing. Cardio: Rate: regular rate Rhythm: regular rhythm Other: Occasional ectopy, no murmur. GI: Auscultation: normal bowel sounds Other: Abdomen soft, nondistended, nontender. Normoactive bowel sounds in all q uadrants. Skin: General skin exam: normal color and no rashes or lesions noted Wounds: no wounds Neuro: Cranial nerves: Yes Equal, round and reactive pupils present Speech: normal speech Motor exam (neuro): 5/5 motor strength present throughout Sensory Exam: normal sensation Other: A&O x4 Extrem: General: normal to inspection Psych: Mental Status: mental status grossly normal Affect: normal affect and Hostile affect present DS: Data Data Completed and Pending Labs on day of discharge: Preliminary micro results at discharge 01/16/25 10:59 Blood Culture - Preliminary Blood 01/16/25 11:14 Blood Culture - Preliminary Blood Discharge Plan Discharge Attending physician on discharge: Enrique Rocha Consulting providers: Summer [place] Discharging Clinician: Sue Fermin Patient Disposition: Home, Self-Care Activity: may shower Diet: as tolerated Discharge Instructions: Please complete your antibiotic course- you still have total of 6 doses of augmentin (1 tab twice a day) -last dose is to be taken 4/1 pm if you don't skip any doses. please try not to skip any, and take medication at approx the same time daily. You have one more dose of azithromycin- another antibiotics that you were taking while in the hospital. F/u with your PCP and urologist. Patient Instructions: Antibiotic Form Patient Language: Chadian Stand Alone Forms: General Discharge Information Follow-up/Referrals: [facility] [Provider Group] - 2 Weeks (please f/u with your urologist) Manuel Lisa MD [Primary Care Provider] - 2 Weeks Discharge Medications: New azithromycin [Zithromax] 250 mg Tablet 500 mg PO DAILY Qty: 2 0RF Continued albuterol sulfate 90 mcg/actuation HFA aerosol inhaler 2 inh inhalation QID PRN (Reason: Shortness Of Breath) aspirin [Adult Low Dose Aspirin] 81 mg tablet,delayed release (DR/EC) 81 mg PO DAILY atorvastatin 80 mg tablet 40 mg PO DAILY cholecalciferol (vitamin D3) 50 mcg (2,000 unit) capsule 50 mcg PO DAILY clonazepam 0.5 mg tablet 0.25 mg PO Q12H lisinopril 40 mg tablet 40 mg PO DAILY miconazole nitrate 2 % aerosol powder 1 spray topical TID PRN (Reason: Rash) Rx Instructions: Affected area omeprazole 40 mg capsule,delayed release(DR/EC) 40 mg PO DAILY risperidone 4 mg tablet 4 mg PO HS trazodone 100 mg tablet 100 mg PO 1800,2100 Rx Instructions: Take 1 tablet at 1800, and two tablets at bedtime diclofenac sodium 50 mg tablet,delayed release (DR/EC) 50 mg PO BID temazepam 15 mg capsule 15 mg PO QHS PRN (Reason: sleep) duloxetine 30 mg capsule,delayed release(DR/EC) 30 mg PO DAILY gabapentin 600 mg tablet 1,200 mg PO BID Spiriva Respimat 2.5 mcg/actuation Mist 2 puff INHALATION DAILY topiramate 100 mg tablet 200 mg PO BID Rx Instructions: takes in morning and at bedtime omega 6-rnl-bke-fish oil [Fish Oil] 1,000 (120-180) mg capsule 1 cap PO 6XD lidocaine 5 % gel 1 ea topical BID PRN (Reason: pain) Rx Instructions: Affected area phenazopyridine 100 mg tablet 100 mg PO BID PRN (Reason: urinary pain) sulfamethoxazole-trimethoprim [Bactrim DS] 800-160 mg tablet 1 tablet PO Q12H amoxicillin-pot clavulanate 875-125 mg tablet 1 tablet PO BID Qty: 7 0RF Rx Instructions: Take until gone Date of admission: 01/17/25 10:03 Primary Care Provider: Manuel Lisa Admitting Provider: Kei Tran Attending physician on admission: Kei Tran Condition: Stable Quality VTE Prophylaxis VTE prophylaxis: mechanical ordered Hospitalist MIPS Heart Failure (Exclusion) Patient has history of Heart Transplant or Left Ventricular Assistive Device?: No IF YES, STOP HERE Heart Failure (Qualifier) Patient has current or prior documentation of LVEF less than or equal to 40%, or mod/servere depressed LVSF?: No IF NO, STOP HERE
== END 2025-01-19 13:05 | disposition home or self-care (01) | DRG 698 ==
LOC: ANHED 10:24 → ANH2MED 16:39
PROVIDERS: Student in an Organized Health Care Education/Training Program; Admitting Provider Internal Medicine; Emergency Provider Nurse Practitioner Family; PCP Family Medicine; Visit Provider Nurse Practitioner
DX: T83.592A Infection and inflammatory reaction due to indwelling ureteral stent, initial encounter (principal); J18.9 Pneumonia, unspecified organism; N39.0 Urinary tract infection, site not specified; J44.0 Chronic obstructive pulmonary disease with (acute) lower respiratory infection; J91.8 Pleural effusion in other conditions classified elsewhere; I10 Essential (primary) hypertension; E11.42 Type 2 diabetes mellitus with diabetic polyneuropathy; F43.10 Post-traumatic stress disorder, unspecified; F31.9 Bipolar disorder, unspecified; E78.5 Hyperlipidemia, unspecified; K21.9 Gastro-esophageal reflux disease without esophagitis; M19.90 Unspecified osteoarthritis, unspecified site; G47.33 Obstructive sleep apnea (adult) (pediatric); F17.210 Nicotine dependence, cigarettes, uncomplicated; Z96.652 Presence of left artificial knee joint; Z86.16 Personal history of COVID-19; Z87.442 Personal history of urinary calculi
CPT/HCPCS: 36415; 71045; 74177; 80048; 80053; 81001; 82948; 83605; 85025; 85055; 85610; 85730; 86140; 87040; 87086; 87186; 87637; 93005; 94640; 96361; 96365; 96367; 96375; 97161; 97165; 99285; A9270; G0378; J0295; J0456; J0696; J1885; J7030; Q9967

== ENCOUNTER 2025-04-19 10:35 | Outpatient (CLI) | payer MEDICARE, SELFPAY ==
--- NOTE | ~2025-04-19 | CT_ITS ---
Clinical Indication: Abnormal weight loss CT Scan of the Chest, Abdomen, and Pelvis with Contrast: Technique: Contiguous sections were acquired throughout the chest, abdomen, and pelvis after intraven ous administration of 100 cc of Omnipaque 350. Dose reduction technique was used on this scan by shawn yooning automated exposure control and iterative reconstruction technique. The dose-length product (DL P) was 501.28 mGy-cm. Findings: There is no evidence of any significant mediastinal, hilar or axillary lymphadenopathy. The mediastin al soft tissues and vascular structures appear normal. Small pericardial effusion. No pleural effusions. There are minimal patchy ground glass opacities in the right lung. There is right basilar scarring or atelectasis. Left lung clear aside from calcified granulomas. The liver, spleen, pancreas, gallbladder, adrenals and kidneys are within normal limits. There are at herosclerotic calcifications of the aorta. No lymphadenopathy. No bowel obstruction or bowel wall thickening. There is no evidence to suggest acute appendicitis. Sm all fat-containing umbilical hernia noted. Urinary bladder is unremarkable. No pelvic mass seen. No ascites. Impression: Minimal patchy ground glass opacity in the right lung, suggestive of infectious/inflammatory process. Small pericardial effusion. Small fat-containing of focal hernia. Reviewed, dictated and finalized at location . Impression: Minimal patchy ground glass opacity in the right lung, suggestive of infectious /inflammatory process. Small pericardial effusion. Small fat-containing of focal hernia.
[2025-04-19 11:16] LABS: Estimated Glomerular Filt Rate > 60
== END 2025-04-19 10:36 | disposition home or self-care (01) ==
PROVIDERS: PCP Family Medicine; Visit Provider Family Medicine
DX: K42.9 Umbilical hernia without obstruction or gangrene (principal); R91.8 Other nonspecific abnormal finding of lung field; I31.39 Other pericardial effusion (noninflammatory)
CPT/HCPCS: 71260; 74177; Q9967

== ENCOUNTER 2025-05-13 05:23 | Inpatient (IN) | payer MEDICARE, OTHER, SELFPAY ==
[2025-05-13] VITALS (19 sets, daily range): BP systolic 109–128; BP diastolic 49–65; PULSE 60–95; RESP 16–32; TEMP 36.4–36.7; O2SAT 86–98; BMI 42.7
--- NOTE | ~2025-05-13 | XR_ITS ---
XR pelvis 1-2V 05/13/2025 06:32 Indication: Status post fall. Procedure: AP pelvis Comparison: No prior studies for comparison. Findings: There is bilateral symmetric osteoarthritis of the hips. Pelvic rings intact. Sacral forame n are symmetric. No acute fracture or traumatic malalignment. No focal soft tissue abnormality. No fo reign bodies. Impression: 1: No acute fracture. Reviewed, dictated and finalized at location A. Impression: 1: No acute fracture.
--- NOTE | ~2025-05-13 | CT_ITS ---
EXAMINATION: CT brain wo con DATE: 05/13/2025 06:22 INDICATION: Closed head injury status post fall. TECHNIQUE: Computed tomography (CT) of the head was performed without intravenous contrast. The dose- length product was 681.00 mGy-cm. Automated exposure control and iterative reconstruction technique w ere employed. COMPARISON: CT dated 05/28/2021 FINDINGS: Mild generalized atrophy. Small chronic right parietal infarction. There is intracranial at herosclerosis. There are craniotomy changes in the left frontoparietal region. No acute intracranial hemorrhage, infarction, mass or mass effect. Midline sagittal images demonstrate a normal corpus call osum and craniovertebral junction. IMPRESSION: 1. No acute intracranial abnormality. Reviewed, dictated and finalized at location A.
--- NOTE | ~2025-05-13 | CT_ITS ---
EXAMINATION: CT cervical spine wo con DATE: 05/13/2025 06:22 INDICATION: Closed head injury. Status post fall. TECHNIQUE: Computed tomography (CT) of the cervical spine was performed without intravenous contrast. The dose-length product was 108 mGy-cm. Automated exposure control and iterative reconstruction tech nique were employed. COMPARISON: None FINDINGS: Craniovertebral junction within normal limits. Odontoid process is normal. There is degener ative disc disease at C5-6 and C6-7. There is multilevel uncinate and facet hypertrophy. There is emp hysema lung apices. There is left upper lobe scarring. No acute fracture or traumatic malalignment. N o paraspinal soft tissue abnormality. There is carotid atherosclerosis. IMPRESSION: 1. No acute abnormality of the cervical spine. 2: Mild-moderate cervical spondylosis. Reviewed, dictated and finalized at location A.
--- NOTE | ~2025-05-13 | XR_ITS ---
XR chest 1V portable 05/13/2025 06:32 Indication: Status post fall. Procedure: AP portable chest Comparison: Comparison to multiple prior studies sequentially, with oldest reviewed study dated 04/2021. Findings: Heart size normal. Subtle asymmetric left-sided airspace disease. No significant effusion. No pneumothorax. No acute osseous center mainly. No acute osseous abnormality. Impression: 1: Subtle asymmetric left-sided airspace disease which may represent pneumonia or asymmetric edema. Reviewed, dictated and finalized at location A. Impression: 1: Subtle asymmetric left-sided airspace disease which may represent pneumonia or asymmetric edema.
--- NOTE | 2025-05-13 05:34 | ECG_ITS ---
Test Date: 2025-05-13 05:51:13 Measurements Intervals [place] Rate: 94 P: 74 TN: 200 QRS: 264 QRSD: 90 T: 52 QT: 344 QTc: 432 Interpretive Statements SINUS RHYTHM WITH OCCASIONAL SUPRAVENTRICULAR PREMATURE COMPLEXES nonspecific T-wave abnormality Compared to ECG 01/16/2025 10:36:08 no significant changes Electronically Signed On 05-13-2025 11:25:16 CDT by Sim Clinton M.D.
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
[2025-05-13] MEDS: ACETAMINOPHEN 500 MG TABLET 1000 MG PO (05:50)
[2025-05-13] MEDS: LACTATED RINGERS 1,000 ML 999 ML IV CONT (05:51)
[2025-05-13 05:57] LABS: Hematocrit 39.6 % (42.0-52.0); Hemoglobin 12.3 g/dL (14.0-18.0); Immature Granulocyte Percent A 0.2 % (0-0.5); Immature Platelet Fraction Pct 3.6 % (0.9-11.2); Lymphocytes Absolute Auto 0.36 K/mm3 (0.9-3.2); Mean Corpuscular HGB Conc 31.1 g/dl (32-36); Mean Corpuscular Hemoglobin 28.6 pg (26-34); Mean Corpuscular Volume 92.1 fl (80-100); Nucleated Red Blood Cells Absolute Auto 0.000 K/mm3 (0.0-0.012); Nucleated Red Blood Cells Perc 0.0 % (0.0-0.2); Platelet Count Result 118 k/mm3 (150-375); Red Blood Count 4.30 M/mm3 (4.6-6.20); White Blood Count 8.4 K/mm3 (4.5-10.0)
[2025-05-13 06:04] LABS: Alanine Aminotransferase 36 U/L (6-50); Albumin Level 3.8 g/dL (3.5-5.1); Alkaline Phosphatase 99 U/L (38-126); Anion Gap 5 mmol/L (4-12); Aspartate Amino Transferase 26 U/L (17-59); Bilirubin,Total 0.4 mg/dL (0.2-1.3); Blood Urea Nitrogen 23 mg/dL (9-20); Calcium 10.3 mg/dL (8.4-10.2); Carbon Dioxide 25 mmol/L (22-30); Chloride 107 mmol/L (98-107); Creatine Kinase 37 U/L (55-170); Estimated CRCL calculation 76 ml/min; Estimated Glomerular Filt Rate > 60; Glucose 114 mg/dL (65-110); Magnesium 1.8 mg/dL (1.6-2.3); Potassium 4.0 mmol/L (3.4-5.0); Sodium 137 mmol/L (137-145); Total Protein 6.6 g/dL (6.3-8.2)
[2025-05-13] MEDS: ACETAMINOPHEN 650 MG SUPPOSITORY (06:41)
[2025-05-13 07:10] LABS: Add Urine Microscopic? YES; Appearance Urine Clear (Clear); Glucose Urine UA Negative (Negative); Leukocyte Esterase Ur 1+ LEU/UL (Negative); Need Manual Microscopic Reviewed; Nitrate Urine Negative (Negative); Non Pathogenic Casts 0-2; Specific Grav Ur 1.018 (1.001-1.035)
--- NOTE | 2025-05-13 07:23 | PC.NURSE ---
Bedside shift report received from Maryana RN, patient resting in bed, iv patent and infusing fluid bolus.
[2025-05-13] MEDS: cefTRIAXone 1 GM in SODIUM CHLORIDE 0.9% IV 50 ML 100 ML IVPB (07:53)
--- NOTE | 2025-05-13 08:38 | PC.NURSE ---
called patient report at this time, RN in a room with a physician and patient and will call back when available.
--- NOTE | 2025-05-13 09:28 | ADMGEN ---
This patient, Art Momin, was admitted to Medical Room 252-01. Patient/family oriented to hospital policies and general routines including ID bracelet, bed and alarms, visiting hours, pain management, procedures, bathroom and other care routines, personal items, smoking policy, room service/diet, and visiting hours. Information on how to activate the Rapid Response Team has been discussed. Patient/Family are encouraged to report perceived risks to care and to ask questions if they do not understand what they are told or what they should do.
[2025-05-13] MEDS: metroNIDAZOLE 500 MG/ISO 100ML 500 MG/100 ML BAG 100 MG IVPB (11:00)
--- NOTE | 2025-05-13 12:18 | PCSTNOTE ---
Please refer to the Bedside Swallow Evaluation in the EMR. Please note, silent aspiration cannot be ruled out at bedside. The patient is a 70 year old male admitted with respiratory failure. Orders received from physician to complete a bedside swallow evaluation due to a noted wet vocal quality at rest. The patients was positioned upright in bed and the patient's medical POA was present for the evaluation. The patient's medial POA reports dysphagia concerns for approximately 2 years now following a MBS study. He stated at that time it was recommended the patient have moderately thick liquids. He reports the patient's intake overall is fair and it requires significant encouragement on his part to assure he gets nutrition and follows the recommended liquids. He also reports the patient manages drinks better with a straw versus cup drinks for moderately thick liquid. The patient was presented the following consistencies: 5 cc tsp thin liquid, 5 cc tsp moderately thick liquid, moderately thick liquid via straw (small pinched drink size), and pudding consistency. Oral Stage: Oral preparation mildly delayed for oral transit to propel the bolus posteriorly across consistencies. The patient has a normal open moth position and limited lingual ROM. Pharyngeal Stage: The patient had a noted wet vocal quality at rest prior to presenting liquid and food trials. The patient was cued to throat clear and complete a re-swallow prior to assessing swallow function. When presented tsp trials/5 cc thin and tsp trials/5 cc moderately thick liquid the patient was observed to have a delayed swallow and require multiple repeat swallows to effectively clear the bolus. The patient had an increase in the wet vocal quality and an intermittent cough response after the swallow. Like cortes when presented small straw drinks moderately thick liquid and pudding consistency the patient was observed to have a delayed swallow response and multiple attempts to complete the initial swallow followed by repeat swallows after the initial swallow. Vocal quality remained significantly wet in quality. The patient had intermittent coughing after the swallow with moderately thick and pudding trials. Recommend NPO or alternate means of nutrition. The BUILDING CUSTODIAL SUPERVISOR talked with the patient and medical POA in length following the bedside swallow. They do not wish for a MBS study at this time to further evaluate the swallow, or any changes to be made in the patient's current diet. Results reviewed whit he patient's nurse and Dr. Marshall. The patient's POA reports previously on a Regular diet/Level 7 and Moderately Thick Liquids/Level 3.
[2025-05-13] MEDS: AZITHROMYCIN IV 500 MG in SODIUM CHLORIDE 0.9% IV 250 ML IVPB (12:30)
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
[2025-05-13] MEDS: LACTATED RINGERS 1,000 ML 100 ML IV CONT ×2 (13:40→23:38)
[2025-05-13] MEDS: GABAPENTIN 400 MG CAPSULE 1200 MG PO ×2 (13:50→20:30)
[2025-05-13] MEDS: ACETAMINOPHEN 500 MG TABLET PO (17:13)
[2025-05-13] MEDS: TOPIRAMATE 100 MG TABLET 200 MG PO (20:31)
[2025-05-13] MEDS: TEMAZEPAM (*CRX) 15 MG CAPSULE PO (20:31)
[2025-05-13] MEDS: clonazePAM (*CRX) 0.25 MG TABLET PO (20:31)
[2025-05-13] MEDS: ATORVASTATIN 40 MG TABLET PO (20:31)
[2025-05-13] MEDS: TAMSULOSIN HCL 0.4 MG CAPSULE PO (20:31)
[2025-05-13] MEDS: FLUTICASONE/SALMETEROL 230-21 MCG INHALER 1 PUFF 2 PUFF INHALATION (21:05)
[2025-05-14] VITALS (9 sets, daily range): BP systolic 112–127; BP diastolic 55–59; PULSE 49–67; RESP 16–20; TEMP 36.3–36.7; O2SAT 94–98
[2025-05-14 04:57] LABS: Hematocrit 30.9 % (42.0-52.0); Hemoglobin 9.3 g/dL (14.0-18.0); Immature Platelet Fraction Pct 4.2 % (0.9-11.2); Mean Corpuscular HGB Conc 30.1 g/dl (32-36); Mean Corpuscular Hemoglobin 28.4 pg (26-34); Mean Corpuscular Volume 94.2 fl (80-100); Platelet Count Result 98 k/mm3 (150-375); Red Blood Count 3.28 M/mm3 (4.6-6.20); White Blood Count 4.6 K/mm3 (4.5-10.0)
[2025-05-14 05:23] LABS: Anion Gap 1 mmol/L (4-12); Blood Urea Nitrogen 13 mg/dL (9-20); Calcium 9.5 mg/dL (8.4-10.2); Carbon Dioxide 27 mmol/L (22-30); Chloride 104 mmol/L (98-107); Estimated CRCL calculation 106 ml/min; Estimated Glomerular Filt Rate > 60; Glucose 84 mg/dL (65-110); Potassium 4.2 mmol/L (3.4-5.0); Sodium 132 mmol/L (137-145)
[2025-05-14] MEDS: FLUTICASONE/SALMETEROL 230-21 MCG INHALER 1 PUFF 2 PUFF INHALATION ×2 (07:21→20:55)
[2025-05-14] MEDS: CHOLECALCIFEROL (VITAMIN D3) 25 MCG (1,000 UNITS) TABLET 50 MCG PO (08:37)
[2025-05-14] MEDS: CYANOCOBALAMIN 500 MCG TABLET PO (08:37)
[2025-05-14] MEDS: TOPIRAMATE 100 MG TABLET 200 MG PO ×2 (08:37→20:53)
[2025-05-14] MEDS: PANTOPRAZOLE 40 MG TABLET PO ×2 (08:37→20:53)
[2025-05-14] MEDS: ACETAMINOPHEN 500 MG TABLET PO ×2 (08:38→17:30)
[2025-05-14] MEDS: metroNIDAZOLE 500 MG/ISO 100ML 500 MG/100 ML BAG 100 MG IVPB ×3 (08:38→20:59)
[2025-05-14] MEDS: GABAPENTIN 400 MG CAPSULE 1200 MG PO ×2 (08:38→20:53)
[2025-05-14] MEDS: FOLIC ACID 1 MG TABLET PO (08:38)
[2025-05-14] MEDS: ASPIRIN 81 MG ENTERIC TABLET PO (08:38)
[2025-05-14] MEDS: cefTRIAXone 2 GM in SODIUM CHLORIDE 0.9% IV 100 ML 200 ML IVPB (11:16)
[2025-05-14] MEDS: DOXYCYCLINE IV 100 MG in SODIUM CHLORIDE 0.9% IV 100 ML IVPB ×2 (11:18→21:00)
--- NOTE | 2025-05-14 11:39 | PM.IMPN ---
Progress Note: A&P Assessment and Plan (1) Fall: Code(s): W19.XXXA - Unspecified fall, initial encounter Status: Acute (2) Pneumonia: Code(s): J18.9 - Pneumonia, unspecified organism Status: Acute (3) Excessive weight loss: Code(s): R63.4 - Abnormal weight loss Status: Acute (4) Urinary tract infection: Qualifiers: Hematuria presence: with hematuria Urinary tract infection type: acute cystitis Qualified Code(s): N30.01 - Acute cystitis with hematuria Code(s): N39.0 - Urinary tract infection, site not specified Status: Acute (5) Obstructive sleep apnea: Code(s): G47.33 - Obstructive sleep apnea (adult) (pediatric) Status: Acute (6) Post traumatic stress disorder: Code(s): F43.10 - Post-traumatic stress disorder, unspecified Status: Acute (7) Insomnia: Qualifiers: Insomnia type: unspecified Qualified Code(s): G47.00 - Insomnia, unspecified Code(s): G47.00 - Insomnia, unspecified Status: Acute (8) Anxiety: Code(s): F41.9 - Anxiety disorder, unspecified Status: Acute (9) Peripheral neuropathy: Qualifiers: Peripheral neuropathy type: polyneuropathy, unspecified Qualified Code(s): G62.9 - Polyneuropathy, unspecified Code(s): G62.9 - Polyneuropathy, unspecified Status: Acute (10) Essential (primary) hypertension: Code(s): I10 - Essential (primary) hypertension Status: Chronic (11) GERD (gastroesophageal reflux disease): Code(s): K21.9 - Gastro-esophageal reflux disease without esophagitis Status: Acute Plan mechanical fall PT/OT fall precautions continue to monitor UTI Rocephin follow U/C Pneumonia Aspiration Rocephin, Azithromycin, Flagyl follow culture result BPH Flomax Depression,anxiety/bipolar/PTSD home meds Neuropathy Gabapentin HLD statin HTN lisinopril COPD home inhalers Subjective Date/time seen: 05/14/25 11:39 Interval history: Comfortable at bedside awaiting placement Review of Systems Review of Systems: As reviewed above in HPI Exam Narrative: GENERAL: Cachectic and malnourished, coughing with a wet sounding productive cough throughout the encounter HEAD: Temporal wasting noted bilaterally, no visible signs of trauma EYES: Pupils are equal reactive to light, sunken in eyes ENT: Nares clear, no rhinorrhea or epistaxis. Mucous membranes dry. NECK: Supple. CHEST: Coarse bilateral auscultation, no decreased air entry or wheezing HEART: Regular rate and rhythm. No murmur heard. Warm extremities with pulses ABDOMEN: Soft, scaphoid abdomen, nontender to palpation, no rigidity EXTREMITIES: Normal range of motion. No edema, postsurgical scars on the extremities especially in the knee SKIN: Small skin tear to the left proximal upper extremity without any bleeding NEURO: [No focal deficits]. Alert and oriented is at his baseline PSYCH: Normal mood Objective Data Vital Signs Vital Signs: Vital Signs - 24 hr 05/13/25 11:48 05/13/25 14:05 05/13/25 14:26 Temperature 98.1 F Pulse Rate 73 72 Respiratory Rate 16 Blood Pressure 110/49 L Pulse Oximetry 98 Oxygen Delivery Room Air Fraction of Inspired Oxygen 05/13/25 15:05 05/13/25 16:00 05/13/25 20:00 Temperature Pulse Rate 69 Respiratory Rate Blood Pressure Pulse Oximetry Oxygen Delivery Room Air Room Air Fraction of Inspired Oxygen 21 05/13/25 20:00 05/13/25 20:46 05/13/25 21:07 Temperature 97.5 F L Pulse Rate 70 67 60 Respiratory Rate 16 20 Blood Pressure 114/59 L Pulse Oximetry 94 Oxygen Delivery Fraction of Inspired Oxygen 05/13/25 21:09 05/14/25 00:00 05/14/25 04:00 Temperature Pulse Rate 60 53 L 49 L Respiratory Rate 21 H Blood Pressure Pulse Oximetry 96 Oxygen Delivery Room Air Fraction of Inspired Oxygen 05/14/25 05:48 05/14/25 08:38 05/14/25 08:38 Temperature 97.3 F L Pulse Rate 60 62 Respiratory Rate 16 Blood Pressure 127/55 L Pulse Oximetry 96 Oxygen Delivery Room Air Fraction of Inspired Oxygen Intake/Output Intake/Output: Intake & Output 05/11/25 05/12/25 05/13/25 05/14/25 23:59 23:59 23:59 23:59 Intake Total 3036.7 190 Output Total 1200 Balance 3036.7 -1010 Meds/Results Medications: Active Medications Generic Name Dose Route Start Last Admin Trade Name Freq PRN Reason Stop Dose Admin Acetaminophen 650 mg 05/13/25 06:41 Acetaminophen 650 Mg Suppository RECTAL Q6H PRN Mild Pain (1-3) or Fever Acetaminophen 650 mg 05/13/25 07:01 Acetaminophen 325 Mg Tablet PO Q4H PRN Mild Pain (1-3) or Fever Acetaminophen 500 mg 05/13/25 17:00 05/14/25 08:38 Acetaminophen 500 Mg Tablet PO 500 mg BID JESSIKA Administration Albuterol 2 puff 05/13/25 13:00 Albuterol Sulfate (*Sp) Aerosol 1 Puff INHALATION QID PRN Shortness Of Breath Aspirin 81 mg 05/14/25 09:00 05/14/25 08:38 Aspirin 81 Mg Enteric Tablet PO 81 mg DAILY JESSIKA Administration Atorvastatin Calcium 40 mg 05/13/25 21:00 05/13/25 20:31 Atorvastatin 40 Mg Tablet PO 40 mg QHS JESSIKA Administration Clonazepam 0.25 mg 05/13/25 21:00 05/13/25 20:31 Clonazepam (*Crx) 0.25 Mg Tablet PO 0.25 mg HS JESSIKA Administration Cyanocobalamin 500 mcg 05/14/25 09:00 05/14/25 08:37 Cyanocobalamin 500 Mcg Tablet PO 500 mcg QAM JESSIKA Administration Duloxetine HCl 30 mg 05/13/25 21:00 05/13/25 20:32 Duloxetine Hcl 30 Mg Capsule.Dr PO 30 mg HS JESSIKA Administration Folic Acid 1 mg 05/14/25 09:00 05/14/25 08:38 Folic Acid 1 Mg Tablet PO 1 mg QAM JESSIKA Administration Gabapentin 1,200 mg 05/13/25 13:30 05/14/25 08:38 Gabapentin 400 Mg Capsule PO 1,200 mg Q12HR JESSIKA Administration Lactated Ringer's 1,000 mls @ 100 mls/hr 05/13/25 07:10 05/13/25 23:38 Lr - Lactated Ringers Iv IV CONT 100 mls/hr .Q10H JESSIKA Administration Ceftriaxone Sodium 2 gm/ 100 mls @ 200 mls/hr 05/14/25 09:00 05/14/25 11:16 Sodium Chloride IVPB 200 mls/hr Q24H JESSIKA Administration Metronidazole 500 mg in 100 mls @ 100 mls/hr 05/14/25 08:10 05/14/25 09:38 Flagyl 500 Mg/Iso Soln 100 Ml IVPB Infused Q8HR JESSIKA Infusion Doxycycline Hyclate 100 mg/ 100 mls @ 100 mls/hr 05/14/25 09:00 05/14/25 11:18 Sodium Chloride IVPB 100 mls/hr Q12H JESSIKA Administration Lisinopril 40 mg 05/14/25 09:00 05/14/25 08:38 Lisinopril 20 Mg Tablet PO 40 mg DAILY JESSIKA Administration Miscellaneous Information 1 each 05/13/25 00:01 Nonformulary Drug (Guaifenesin [Chest Congestion Relief] 400 Mg Tablet) Get Order For 600m XX 06/12/25 00:00 CLARIFY JESSIKA Miscellaneous Information 1 each 05/13/25 13:52 Central Supply Item XX 05/14/25 13:51 PRN PRN Informational Non-Formulary Medication 400 mg 05/13/25 17:00 Guaifenesin [Chest Congestion Relief] PO 06/12/25 16:59 BID JESSIKA Ondansetron HCl 4 mg 05/13/25 07:01 Ondansetron Inj 4 Mg/2 Ml Vial IV PUSH Q4H PRN Nausea Pantoprazole Sodium 40 mg 05/14/25 09:00 05/14/25 08:37 Pantoprazole 40 Mg Tablet PO 40 mg Q12HR JESSIKA Administration Risperidone 4 mg 05/13/25 21:00 05/13/25 20:30 Risperidone 1 Mg Tablet PO 4 mg HS JESSIKA Administration Fluticasone/Salmeterol 2 puff 05/13/25 20:00 05/14/25 07:21 Fluticasone/Salmeterol 230-21 Mcg Inhaler 1 Puff INHALATION 2 puff Q12HRT JESSIKA Administration Tamsulosin HCl 0.4 mg 05/13/25 21:00 05/13/25 20:31 Tamsulosin Hcl 0.4 Mg Capsule PO 0.4 mg QHS JESSIKA Administration Temazepam 15 mg 05/13/25 13:00 05/13/25 20:31 Temazepam (*Crx) 15 Mg Capsule PO 15 mg QHS PRN Administration sleep Topiramate 200 mg 05/13/25 21:00 05/14/25 08:37 Topiramate 100 Mg Tablet PO 200 mg Q12HR JESSIKA Administration Trazodone HCl 100 mg 05/13/25 18:00 05/13/25 17:13 Trazodone Hcl 50 Mg Tablet PO 100 mg DAILY@1800 JESSIKA Administration Trazodone HCl 200 mg 05/13/25 21:00 05/13/25 20:31 Trazodone Hcl 50 Mg Tablet PO 200 mg HS JESSIKA Administration Umeclidinium [place] 1 puff 05/14/25 09:00 05/14/25 07:39 Umeclidinium [place] 62.5 Mcg Ellipta INHALATION Not Given DAILY JESSIKA Vitamin D 50 mcg 05/14/25 09:00 05/14/25 08:37 Cholecalciferol (Vitamin D3) 25 Mcg (1,000 Units) Tablet PO 50 mcg DAILY JESSIKA Administration Radiology Results: ITS Impressions Cervical Spine CT 05/13/25 06:28 IMPRESSION: 1. No acute abnormality of the cervical spine. 2: Mild-moderate cervical spondylosis. Head CT 05/13/25 06:33 IMPRESSION: 1. No acute intracranial abnormality. Chest X-Ray 05/13/25 06:37 Impression: 1: Subtle asymmetric left-sided airspace disease which may represent pneumonia or asymmetric edema. Pelvis X-Ray 05/13/25 06:39 Impression: 1: No acute fracture. Labs Labs: Laboratory Results - last 24 hr 05/14/25 04:43 WBC 4.6 RBC 3.28 L Hgb 9.3 L D Hct 30.9 L MCV 94.2 MCH 28.4 MCHC 30.1 L RDW 13.9 Plt Count 98 L MPV 10.5 H % Immature Plt Fraction 4.2 Sodium 132 L Potassium 4.2 Chloride 104 Carbon Dioxide 27 Anion Gap 1 L BUN 13 D Creatinine 0.72 Estim Creat Clear Calc 106 Estimated GFR > 60 Glucose 84 Calcium 9.5
[2025-05-14] MEDS: TEMAZEPAM (*CRX) 15 MG CAPSULE PO (20:52)
[2025-05-14] MEDS: ATORVASTATIN 40 MG TABLET PO (20:52)
[2025-05-14] MEDS: TAMSULOSIN HCL 0.4 MG CAPSULE PO (20:53)
[2025-05-14] MEDS: clonazePAM (*CRX) 0.25 MG TABLET PO (20:53)
[2025-05-15] VITALS (7 sets, daily range): BP systolic 100–103; BP diastolic 58–60; PULSE 56–65; RESP 12–13; TEMP 36.1–36.6; O2SAT 93–99
[2025-05-15] MEDS: metroNIDAZOLE 500 MG/ISO 100ML 500 MG/100 ML BAG 100 MG IVPB ×2 (05:08→13:04)
[2025-05-15 05:12] LABS: Hematocrit 29.5 % (42.0-52.0); Hemoglobin 9.1 g/dL (14.0-18.0); Immature Granulocyte Percent A 0.5 % (0-0.5); Immature Platelet Fraction Pct 3.6 % (0.9-11.2); Lymphocytes Absolute Auto 0.82 K/mm3 (0.9-3.2); Mean Corpuscular HGB Conc 30.8 g/dl (32-36); Mean Corpuscular Hemoglobin 28.6 pg (26-34); Mean Corpuscular Volume 92.8 fl (80-100); Nucleated Red Blood Cells Absolute Auto 0.000 K/mm3 (0.0-0.012); Nucleated Red Blood Cells Perc 0.0 % (0.0-0.2); Platelet Count Result 103 k/mm3 (150-375); Red Blood Count 3.18 M/mm3 (4.6-6.20); White Blood Count 4.1 K/mm3 (4.5-10.0)
[2025-05-15 05:30] LABS: Alanine Aminotransferase 27 U/L (6-50); Albumin Level 2.7 g/dL (3.5-5.1); Alkaline Phosphatase 66 U/L (38-126); Anion Gap 1 mmol/L (4-12); Aspartate Amino Transferase 22 U/L (17-59); Bilirubin,Total < 0.1 mg/dL (0.2-1.3); Blood Urea Nitrogen 12 mg/dL (9-20); Calcium 9.5 mg/dL (8.4-10.2); Carbon Dioxide 25 mmol/L (22-30); Chloride 107 mmol/L (98-107); Estimated CRCL calculation 118 ml/min; Estimated Glomerular Filt Rate > 60; Glucose 116 mg/dL (65-110); Magnesium 2.0 mg/dL (1.6-2.3); Potassium 3.8 mmol/L (3.4-5.0); Sodium 133 mmol/L (137-145); Total Protein 5.0 g/dL (6.3-8.2)
[2025-05-15] MEDS: ACETAMINOPHEN 500 MG TABLET PO (09:12)
[2025-05-15] MEDS: CHOLECALCIFEROL (VITAMIN D3) 25 MCG (1,000 UNITS) TABLET 50 MCG PO (09:12)
[2025-05-15] MEDS: FOLIC ACID 1 MG TABLET PO (09:13)
[2025-05-15] MEDS: GABAPENTIN 400 MG CAPSULE 1200 MG PO (09:13)
[2025-05-15] MEDS: ASPIRIN 81 MG ENTERIC TABLET PO (09:13)
[2025-05-15] MEDS: PANTOPRAZOLE 40 MG TABLET PO (09:13)
[2025-05-15] MEDS: CYANOCOBALAMIN 500 MCG TABLET PO (09:13)
[2025-05-15] MEDS: DOXYCYCLINE IV 100 MG in SODIUM CHLORIDE 0.9% IV 100 ML IVPB (09:13)
[2025-05-15] MEDS: TOPIRAMATE 100 MG TABLET 200 MG PO (09:13)
[2025-05-15] MEDS: ENOXAPARIN 40 MG/0.4 ML SYRINGE SUB-Q (09:13)
[2025-05-15] MEDS: FLUTICASONE/SALMETEROL 230-21 MCG INHALER 1 PUFF 2 PUFF INHALATION (10:09)
[2025-05-15] MEDS: cefTRIAXone 2 GM in SODIUM CHLORIDE 0.9% IV 100 ML 200 ML IVPB (10:28)
--- NOTE | 2025-05-15 13:07 | P.DS_ITS ---
DS: Admitting Diagnosis Discharge Date 05/15/25 Admitting Diagnosis fall weakness DS: Discharge Diagnosis Discharge Diagnosis (1) Pneumonia: Qualifiers: Laterality: right Lung location: upper lobe of lung Pneumonia type: due to unspecified organism Qualified Code(s): J18.9 - Pneumonia, unspecified organism Code(s): J18.9 - Pneumonia, unspecified organism Status: Acute (2) Acute hypoxemic respiratory failure: Code(s): J96.01 - Acute respiratory failure with hypoxia Status: Acute DS: Summary Hospital Course Hospital Course: Patient is 69 y/o M with PMH of PTSD, anxiety, bipolar depression, GERD, dys lipidemia, COPD, diabetes (diet controlled, not on medications), and kidney stones presented with fall and weakness. Patient lives at home with his sister and brother in law. He noted he had mechanical fall and fell down on the floor. he was not able to stand up but he did not loss his consciousness. he denies any chest pain, SOB, abd pain, N/V. he has been having productive cough and aspiration but has not following diet. he has urinary incontinence and difficulty with speech for several time not clear etiology. patient has been having pain all over. he was brought to the hospital for furthe r management. vital sign stable. CT head and cervical spine neg for acute abnormality.UA concerning for UTI and CXR concerning for Pneumonia. treatment started with IV Rocephin and azithromycin. patient was admitted for further management. Discussed with patient and his POA at bedside. he is feeling fine no complain except he is hungry. CUSTOMER LOYALTY REPRESENTATIVE recommended swallow evaluation but he refused and wanted to continue regular diet with thick fluids. Patient was managed for pneumonia and acute hypoxemic respiratory failure. was started on Rocephin, Flagyl and Doxycycline, patient was able to transition off oxygen to room air, was evaluated by PT/OT however and his brother insisted he will dscharge home regardless. Patient was discharged on 5 more days of Augmentin and Doxycycline. Discharged on minced and moist diet per Speech therapy eval recommendations patient denies any urinary symptoms, thus positive urine culture is asymptomatic bacteruria. Patient does not have UTI. Patinet will continue other home medications F/u wtih PCP in 3-5 days Time Spent with Patient Time attestation: Total time spent providing and/or coordinating discharge services: DS: Data Data Completed and Pending Labs on day of discharge: Labs from last 24 hours 05/15/25 04:36 WBC 4.1 L RBC 3.18 L Hgb 9.1 L Hct 29.5 L MCV 92.8 MCH 28.6 MCHC 30.8 L RDW 13.7 Plt Count 103 L MPV 11.5 H Immature Gran % (Auto) 0.5 Neut % (Auto) 73.6 H Lymph % (Auto) 19.9 Nelson % (Auto) 5.1 Eos % (Auto) 0.7 Baso % (Auto) 0.2 Lymph # (Auto) 0.82 L Nelson # (Auto) 0.2 Eos # (Auto) 0.0 Baso # (Auto) 0.0 Abs Immat Gran (auto) 0.02 Absolute Neuts (auto) 3.0 Absolute Nucleated RBC 0.000 Nucleated RBC % 0.0 % Immature Plt Fraction 3.6 Sodium 133 L Potassium 3.8 Chloride 107 Carbon Dioxide 25 Anion Gap 1 L BUN 12 Creatinine 0.64 L Estim Creat Clear Calc 118 Estimated GFR > 60 Glucose 116 H Calcium 9.5 Magnesium 2.0 Total Bilirubin < 0.1 L AST 22 ALT 27 Alkaline Phosphatase 66 Total Protein 5.0 L Albumin 2.7 L Preliminary micro results at discharge 05/13/25 05:43 - Preliminary Urine Catheterized Gram negative bacilli isolated 05/13/25 07:48 Blood Culture - Preliminary Blood 05/13/25 07:09 Blood Culture - Preliminary Blood Discharge Plan Discharge Attending physician on discharge: Toshia Cedillo Consulting providers: Pablo Marshall Discharging Clinician: Toshia Cedillo Anticipated Discharge Date/Time: 05/15/25 13:02 Patient Disposition: Home Activity: as tolerated Diet: as tolerated and other - see discharge instructions Discharge Instructions: Minced and moist level 5 diet Patient Instructions: Antibiotic Form Patient Language: Cambodian Stand Alone Forms: General Discharge Information Follow-up/Referrals: Manuel Lisa MD [Primary Care Provider] - (F/u with PCP in 3-5 days ) Discharge Medications: New doxycycline hyclate 100 mg Tablet 100 mg PO Q12HR 4 Days Qty: 8 0RF amoxicillin-pot clavulanate 875-125 mg tablet 1 tablet PO Q12H 5 Days Qty: 10 0RF Continued albuterol sulfate 90 mcg/actuation HFA aerosol inhaler 2 inh inhalation QID PRN (Reason: Shortness Of Breath) aspirin [Adult Low Dose Aspirin] 81 mg tablet,delayed release (DR/EC) 81 mg PO DAILY cholecalciferol (vitamin D3) 50 mcg (2,000 unit) capsule 50 mcg PO DAILY clonazepam 0.5 mg tablet 0.25 mg PO HS lisinopril 40 mg tablet 40 mg PO DAILY miconazole nitrate 2 % aerosol powder 1 spray topical TID PRN (Reason: Rash) Rx Instructions: Affected area omeprazole 40 mg capsule,delayed release(DR/EC) 40 mg PO DAILY risperidone 4 mg tablet 4 mg PO HS trazodone 100 mg tablet 100 mg PO 1800,2100 Rx Instructions: Take 1 tablet at 1800, and two tablets at bedtime atorvastatin 80 mg tablet 40 mg PO QHS diclofenac sodium 50 mg tablet,delayed release (DR/EC) 50 mg PO BID temazepam 15 mg capsule 15 mg PO QHS PRN (Reason: sleep) duloxetine 30 mg capsule,delayed release(DR/EC) 30 mg PO HS tamsulosin 0.4 mg capsule 0.4 mg PO QHS fluticasone propion-salmeterol [Advair HFA] 230-21 mcg/actuation HFA aerosol inhaler 2 puff inhalation BID Qty: 12 2RF Rx Instructions: administer with spacer (DME) Aerochamber MV Spacer See Rx Instructions .Route Qty: 1 0RF Rx Instructions: As directed gabapentin 600 mg tablet 1,200 mg PO BID gabapentin 600 mg tablet 1,200 mg PO BID Spiriva Respimat 2.5 mcg/actuation Mist 2 puff INHALATION DAILY topiramate 100 mg tablet 200 mg PO BID Rx Instructions: takes in morning and at bedtime guaifenesin [Chest Congestion Relief] 400 mg tablet 400 mg PO BID Foltrate 0.5-1 mg tablet 1 tablet PO DAILY acetaminophen 500 mg capsule 500 mg PO BID Spiriva Respimat 2.5 mcg/actuation mist 2 inh inhalation DAILY fluticasone propion-salmeterol [Advair HFA] 230-21 mcg/actuation HFA aerosol inhaler 2 inh inhalation BID Rx Instructions: with spacer Date of admission: 05/13/25 07:01 Primary Care Provider: Manuel Lisa Admitting Provider: Ghada Maguire Attending physician on admission: Ghada Maguire Condition: Stable
== END 2025-05-15 15:45 | disposition home or self-care (01) | DRG 193 ==
LOC: ANHED 07:01 → ANH3MEDSUR 07:45 → ANH2MED 08:39
PROVIDERS: Internal Medicine; Admitting Provider Internal Medicine; Emergency Provider Student in an Organized Health Care Education/Training Program; PCP Family Medicine; Visit Provider Internal Medicine
DX: J18.9 Pneumonia, unspecified organism (principal); J96.01 Acute respiratory failure with hypoxia; J44.0 Chronic obstructive pulmonary disease with (acute) lower respiratory infection; D61.818 Other pancytopenia; E46 Unspecified protein-calorie malnutrition; E78.5 Hyperlipidemia, unspecified; F31.9 Bipolar disorder, unspecified; F43.10 Post-traumatic stress disorder, unspecified; E88.A Wasting disease (syndrome) due to underlying condition; K21.9 Gastro-esophageal reflux disease without esophagitis; E11.42 Type 2 diabetes mellitus with diabetic polyneuropathy; G47.33 Obstructive sleep apnea (adult) (pediatric); M19.90 Unspecified osteoarthritis, unspecified site; R82.71 Bacteriuria; B96.4 Proteus (mirabilis) (morganii) as the cause of diseases classified elsewhere; F41.9 Anxiety disorder, unspecified; N40.0 Benign prostatic hyperplasia without lower urinary tract symptoms; W19.XXXA Unspecified fall, initial encounter; R63.4 Abnormal weight loss; F17.210 Nicotine dependence, cigarettes, uncomplicated; Z96.652 Presence of left artificial knee joint; Z86.16 Personal history of COVID-19
CPT/HCPCS: 36415; 70450; 71045; 72125; 72170; 80048; 80053; 81001; 82550; 83735; 85025; 85027; 85055; 87040; 87086; 92610; 93005; 94640; 96361; 96374; 97110; 97161; 97166; 97530; 97535; 99291; A9270; J0456; J0696; J1650; J1836; J7050; J7120

== ENCOUNTER 2025-06-14 10:29 | Outpatient (CLI) | payer MEDICARE, SELFPAY ==
--- NOTE | ~2025-06-14 | XR_ITS ---
CHEST RADIOGRAPH, PA AND LATERAL CLINICAL HISTORY: Pneumonia, unspecified organism, pnemonia f/u 1 month ago . COMPARISON: 05/13/2025 TECHNIQUE: PA and lateral views of the chest. FINDINGS The cardiomediastinal silhouette is unremarkable. Bibasilar atelectasis. The remainder of the lungs are clear. IMPRESSION: Bibasilar atelectasis, without focal infiltrate or effusion. Reviewed, dictated and finalized at location A.
== END 2025-06-14 10:30 | disposition home or self-care (01) ==
PROVIDERS: PCP Family Medicine; Visit Provider Nurse Practitioner Family
DX: J98.11 Atelectasis (principal); J18.9 Pneumonia, unspecified organism
CPT/HCPCS: 71046

== ENCOUNTER 2025-09-08 09:49 | Inpatient (IN) | payer MEDICARE, OTHER, SELFPAY ==
[2025-09-08] VITALS (51 sets, daily range): BP systolic 88–120; BP diastolic 51–65; PULSE 77–101; RESP 0–25; TEMP 36.8–37.5; O2SAT 92–100; BMI 22.0
--- NOTE | ~2025-09-08 | XR_ITS ---
Examination: XR chest 1V portable Clinical History: sob Comparison: 06/14/2025 Technique: Portable AP Findings: Heart size upper limit of normal. Scattered bilateral airspace disease. No acute bony abnormality. IMPRESSION: 1. Pulmonary edema and/or multifocal bilateral airspace disease. Reviewed, dictated and finalized at location R. K TRAILER MECHANIC
--- NOTE | ~2025-09-08 | CT_ITS ---
EXAMINATION: CT chest abdomen pelvis w con DATE: 09/08/2025 12:03 INDICATION: Sepsis. TECHNIQUE: Computed tomography (CT) of the chest, abdomen, and pelvis was performed with 100 mL Omnipaque 350 intravenous contrast. Automated exposure control and iterative reconstruction technique were employed. The dose-length product was 526.26 mGy-cm. COMPARISON: CT 04/19/2025 FINDINGS: CHEST CT: There are airspace and groundglass opacities in all lobes with a posterior predominance, consistent with pneumonia. Calcified left lung nodules and calcified left hilar lymph nodes are consistent with old granulomatous disease. There is material in the right-sided bronchi which may be mucous plugging or aspiration. There are trace pleural effusions. The heart size is normal. There are coronary artery calcifications. There is a trace pericardial effusion. There is severe thoracic spondylosis. There is mild chronic anterior wedging of multiple vertebral bodies. ABDOMEN/PELVIS CT: The liver, gallbladder, spleen, pancreas, and adrenal glands are normal. There is cortical thinning of the kidneys. There are approximately 4 stones in right kidney measuring up to 2 mm. There is a 2 mm stone in left kidney. There are changes of ventral hernia repair. There are no dilated loops of bowel. The appendix is not visualized. There is edema of the intra-abdominal fat and body wall. There are no pathologically enlarged lymph nodes. There is no free intraperitoneal fluid. There is moderate lumbar spondylosis. IMPRESSION: 1. Pneumonia in all lobes with a posterior predominance. 2. Material in right-sided bronchi, which may be mucous plugging or aspiration. Reviewed, dictated and finalized at location E. ARCH ARCHAEOLOGIST
--- NOTE | ~2025-09-08 | XR_ITS ---
EXAM/PROCEDURE: XR barium swallow modified HISTORY: aspiration COMPARISON: None available. TECHNIQUE: Modified barium swallow performed Fluoroscopy time: 3.2 minutes DAP: 1.87 Rodriguez per square centimeter Number of images: 2 IMPRESSION: Aspiration observed on real-time exam. See also speech therapist's notes for complete evaluation. Reviewed, dictated and finalized at location A. NG TUMBLER OPERATOR IMPRESSION: Aspiration observed on real-time exam. See also speech therapist's notes for co mplete evaluation.
--- NOTE | ~2025-09-08 | CT_ITS ---
CT HEAD NON-CONTRAST Clinical History: ams Comparison: CT brain 05/13/2025 Technique: Unenhanced axial images skull base to vertex Coronal, sagittal reformats CT images acquired with automatic exposure control for dose reduction DLP: 757 mGy-cm Findings: Left lateral frontal craniotomy. Sulci, ventricles: Unremarkable. No intracerebral hemorrhage. No evidence acute territorial infarct. No mass effect, midline shift. Visualized paranasal sinuses: Clear. Mastoid air cells: Clear. IMPRESSION: 1. No acute intracranial findings. Reviewed, dictated and finalized at location R. EED OIL BOILER
--- NOTE | 2025-09-08 09:55 | ECG_ITS ---
Test Date: 2025-09-08 09:57:01 Measurements Intervals [place] Rate: 98 P: 58 NC: 196 QRS: -34 QRSD: 79 T: 52 QT: 321 QTc: 411 Interpretive Statements SINUS RHYTHM LEFTWARD AXIS Electronically Signed On 09-08-2025 10:00:38 APPETIZER PACKER by Ulysses Mistry D.O
[2025-09-08] MEDS: SODIUM CHLORIDE 0.9% IV 1,000 ML 999 ML (10:27)
[2025-09-08 10:31] LABS: Hematocrit 33.5 % (42.0-52.0); Hemoglobin 10.5 g/dL (14.0-18.0); Immature Granulocyte Percent A 0.2 % (0-0.5); Immature Platelet Fraction Pct 5.8 % (0.9-11.2); Lymphocytes Absolute Auto 0.12 K/mm3 (0.9-3.2); Mean Corpuscular HGB Conc 31.3 g/dl (32-36); Mean Corpuscular Hemoglobin 28.8 pg (26-34); Mean Corpuscular Volume 92.0 fl (80-100); Nucleated Red Blood Cells Absolute Auto 0.000 K/mm3 (0.0-0.012); Nucleated Red Blood Cells Perc 0.0 % (0.0-0.2); Platelet Count Result 71 k/mm3 (150-375); Red Blood Count 3.64 M/mm3 (4.6-6.20); White Blood Count 4.1 K/mm3 (4.5-10.0)
--- OUTSIDE RECORDS SUMMARY | 2025-09-08 10:33 | XMS_ITS | Clinical Summary ---
Author Organization [facility] [address] [facility] [address] [place] [address] Care Team Providers Care Legal Officer Name Role Phone Kamryn Hardy Jose AMMUNITION COMPONENTS INSPECTOR Primary Care Provider + Allergies Active Allergy [...] mg total) by mouth every morning Active cholecalciferol , vitamin D3, (VITAMIN D3 ORAL) Take 50 [...] 2 (two) times a day Active lisinopriL (PRINIVIL,ZESTR IL) 40 mg tablet Take 1 tablet (40 [...] drinks liquid Active acetaminophen (TYLENOL) 500 mg tabletIndicatio ns:Pain Take 2 tablets (1,000 mg total) by mouth every 6 (six) hours 30 tablet 5 Active ibuprofen (ADVIL,MOTRIN) 600 mg tabletIndicatio ns:Pain Take 1 tablet (600 mg total) by mouth every 6 (six) hours as needed for pain 20 tablet 5 Active phenazopyridine (PYRIDIUM) 100 mg tabletIndicatio ns:Dysuria Take 1 tablet (100 mg total) by mouth 3 (three) times a day as needed for urinary pain 10 tablet 5 Active tamsulosin (FLOMAX) 0.4 mg extended release capsule Take 1 capsule (0.4 mg total) by mouth daily 30 capsule 11 5 06/27/20 26 Active Active Problems Problem Noted Date Diagnosed Date [...] Encounters Date Type Department Care Team Description 06/18/2025 Telephone [facility] [address] [facility] [address] [place] [address] Jethro Weber DO from Last 3 Months Immunizations Immunization Administration [...] Date Smoking Tobacco: Every Day Cigarettes 2 54.9 Started: 1971 Passive Smoke Exposure: Past Smokeless Tobacco: Never [...] on file Legal Sex Male 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 Gender Identity Not on file Sexual Orientation Not on file Last Filed Vital Signs Vital Sign Reading Time Taken Comments Blood Pressure 129/60 12/28/2024 6:35 PM WOMENS HEALTH NURSE PRACTITIONER Pulse 68 12/28/2024 6:40 PM WOMENS HEALTH NURSE PRACTITIONER Temperature 36.3 C (97.3 F) 12/28/2024 6:50 PM WOMENS HEALTH NURSE PRACTITIONER Respiratory Rate 11 12/28/2024 6:40 PM WOMENS HEALTH NURSE PRACTITIONER Oxygen Saturation 98% 12/28/2024 6:40 PM WOMENS HEALTH NURSE PRACTITIONER Inhaled Oxygen Concentration - - Weight 70.8 kg (156 lb 1.4 oz) 12/28/2024 3:56 P M WOMENS HEALTH NURSE PRACTITIONER Height 162.6 cm (5' 4) 12/05/2024 11:18 AM WOMENS HEALTH NURSE PRACTITIONER Body Mass Index 26.79 12/05/2024 11:18 AM WOMENS HEALTH NURSE PRACTITIONER Plan of Treatment Health Maintenance Due Date Last Done Comments Colon Cancer Screening-Colonoscopy 1954 Depression Screening 1954 Hepatitis C Screening 1954 Hepatitis B Screening 1972 Lung Cancer Screening 2004 Abdominal Aortic Aneurysm (A AA) Screen 2019 Well Visit 65+ 2019 Covid-19 Vaccine (2024-11 6 season) 2025 07/24/2024, 04/18/2024, 10/03/2023, Additional history exists Influenza Vaccine (#1) 2025 4, 07/26/2023, 09/09/2021, Additional history exists Fall Risk Assessment 12/28/2025 12/28/2024 DTaP/Tdap/Td Vaccine (4 - Td or Tdap) 07/05/2029 07/05/2019, 10/11/2018, 07/11/2009 Zoster Vaccine Completed 07/15/2020, 11/2019, 12/12/2014 Pneumococcal vaccine 65+ Completed 023, 07/05/2019, 12/27/2017, Additional history exists Medical Devices Explanted Type Area Sales Representative Consultant Device Identifier Shelf Expiration Date Model / Serial / Lot [employer] Universa 6fr 24cm [employer]iop[employer] Monofilament Tether [id number] - [id number] Implanted:Qty: 1 on 12/28/2024 by Jethro Weber DO at [facility] Explanted:Qty: 1 on 01/29/2025 by Jethro Weber DO Right: Ureter [employer] 09/13/2027 [id number] / / [id number] Insurance [facility] MEDICARE [facility] MEDICARE HMO [address] [facility] MEDIC[facility] HMO Care Teams Legal Officer Relationship Specialty Start Date End Date Kamryn Hardy NP [address] [place] [address] PCP - General Family Practice 10/04/24
[2025-09-08 10:47] LABS: INR 1.3; Prothrombin Time 16.0 Seconds (11.1-14.7)
[2025-09-08 10:48] LABS: Add Urine Microscopic? YES; Alanine Aminotransferase 35 U/L (6-50); Albumin Level 2.9 g/dL (3.5-5.1); Alkaline Phosphatase 79 U/L (38-126); Anion Gap 2 mmol/L (4-12); Appearance Urine Clear (Clear); Aspartate Amino Transferase 25 U/L (17-59); Bilirubin,Total 0.5 mg/dL (0.2-1.3); Blood Urea Nitrogen 20 mg/dL (9-20); Calcium 8.8 mg/dL (8.4-10.2); Carbon Dioxide 27 mmol/L (22-30); Chloride 107 mmol/L (98-107); Estimated Glomerular Filt Rate > 60; Glucose 100 mg/dL (65-110); Glucose Urine UA Negative (Negative); Leukocyte Esterase Ur 1+ LEU/UL (Negative); Need Manual Microscopic Reviewed; Nitrate Urine Negative (Negative); Non Pathogenic Casts 0-2; Partial Thromboplastin Time 35.3 Seconds (22.3-36.8); Potassium 4.0 mmol/L (3.4-5.0); Sodium 136 mmol/L (137-145); Specific Grav Ur 1.017 (1.001-1.035); Total Protein 5.4 g/dL (6.3-8.2)
[2025-09-08] MEDS: SODIUM CHLORIDE 0.9% IV 1,000 ML 999 ML IV CONT (12:22)
[2025-09-08] MEDS: PIPERACILLIN/TAZOBACTAM SOD 3.375 GM in SODIUM CHLORIDE 0.9% IV 50 ML 100 ML IVPB (13:02)
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
[2025-09-08] MEDS: IPRATROPIUM BR 0.02% INH SOLN 0.5 MG/2.5 ML VIAL INHALATION ×2 (14:11→19:53)
[2025-09-08] MEDS: ALBUTEROL SULFATE NEB 2.5 MG/3 ML INH INHALATION ×2 (14:11→19:52)
--- NOTE | 2025-09-08 14:56 | WPCEDHO ---
ED Hand Off Checklist All vitals saved:y IV Site documented:y All med administrations documented:y Triage Note Triage Note From home, son states pt woke up 09/08/25 09:51 with fever and confusion. Last known normal was last night. Pt alert to person only. Hx of COPD. Allergies rabies vaccine, human diploid cell Allergy (Verified 08/13/25 10:29) Swelling Family History (Last Reviewed 09/08/25 @ 13:47 by Gareth Hoff MD) Father Diabetes mellitus COPD (chronic obstructive pulmonary disease) Hypertension Mother COPD (chronic obstructive pulmonary disease) Hypertension Heart attack Father Lung cancer Active Medications including assessments/comments Albuterol (Albuterol Sulfate Neb 2.5 Mg/3 Ml Inh) 2.5 mg INHALATION Q6HRT [facility] Last Admin: 09/08/25 14:11 Dose: 2.5 mg Documented By: [facility] [employer] Nebulizer Assessment Document 09/08/25 14:11 [facility] (Rec: 09/08/25 14:11 [facility] [id number]) Updraft Nebulizer Treatment Method Mask Treatment Tolerance Good Ipratropium Velarde (Ipratropium Br 0.02% Inh Soln 0.5 Mg/2.5 Ml Vial) 0.5 mg INHALATION Q6HRT [facility] Last Admin: 09/08/25 14:11 Dose: 0.5 mg Documented By: [facility] [employer] Nebulizer Assessment Document 09/08/25 14:11 [facility] (Rec: 09/08/25 14:11 [facility] [id number]) Updraft Nebulizer Treatment Method Mask Treatment Tolerance Good Administered/Completed Medications Discontinued Medications Sodium Chloride (Normal Saline Iv) Confirm Administered Dose 1,000 mls @ as directed .ROUTE .STK-MED ONE Stop: 09/08/25 10:19 Last Infusion: 09/08/25 13:00 Dose: Infused Documented By: Admin: 09/08/25 10:27 Dose: 999 mls/hr Documented By: NAVID Sodium Chloride (Normal Saline Iv) 1,000 mls @ 999 mls/hr IV CONT .Q1H1M STA Stop: 09/08/25 11:35 Last Infusion: 09/08/25 12:23 Dose: Infused Documented By: CMAkosua Admin: 09/08/25 12:22 Dose: 999 mls/hr Documented By: NAVID Sodium Chloride (Normal Saline Iv) 1,000 mls @ 999 mls/hr IV CONT .Q1H1M STA Stop: 09/08/25 11:35 Last Admin: 09/08/25 13:00 Dose: Not Given Documented By: NAVID Non-Admin Reason: Duplicate Dose Piperacillin Sod/Tazobactam (Sod 3.375 gm/ Sodium Chloride) 50 mls @ 100 mls/hr IVPB ONCE STA Stop: 09/08/25 11:58 Last Infusion: 09/08/25 14:08 Dose: Infused Documented By: Admin: 09/08/25 13:02 Dose: 100 mls/hr Documented By: NAVID Interventions/Assessments IV / Saline Lock, Insert Start: 09/08/25 09:55 Freq: STAT Status: Active Protocol: Document 09/08/25 10:20 CMM (Rec: 09/08/25 10:21 CMM [id number]) IV Assessment Peripheral Access Right Wrist IV Catheter Access Initiated IV Insertion Date 09/08/25 IV Insertion Time 10:21 Catheter Gauge 20 IV Insertion 1 Attempts IV Site Assessment WNL IV Care and WNL Maintenance Peripheral Access Left Hand IV Catheter Access Initiated Before Arrival IV Insertion Date 09/08/25 Catheter Gauge 18 IV Insertion 1 Attempts IV Site Assessment WNL IV Care and WNL Maintenance PA: Cardiovascular Assessment Start: 09/08/25 09:43 Freq: Status: Active Protocol: Document 09/08/25 10:21 CMM (Rec: 09/08/25 10:23 CMM [id number]) Cardiovascular Assessment Cardiovascular None Symptoms Skin Description Pallor PA: Neurological Assessment Start: 09/08/25 09:43 Freq: Status: Active Protocol: Document 09/08/25 10:21 CMM (Rec: 09/08/25 10:23 CMM [id number]) Neurological Assessment Level of Alert Consciousness Arousable to Verbal Orientation Oriented to Person Neurological Weakness, General Symptoms Hallucination Type None Behavior Cooperative Ability to Maintain Unable to Assess Balance Speech Pattern Garbled Ability to Swallow Unable to Assess Tongue Position Unable to Assess Willard Coma Scale Eyes Open Motor Follows Commands PA: Respiratory Assessment Start: 09/08/25 09:43 Freq: Status: Active Protocol: Document 09/08/25 10:21 CMM (Rec: 09/08/25 10:23 CMM [id number]) Respiratory Assessment Symptoms Cough Pattern Tachypnea Depth Deep Chest Expansion Symmetrical Bilateral Upper Lobe(s) Phase Inspiratory & Expiratory Lung Sounds Crackles,Diminished Cough Description Acute Cough Frequency Continuous,Intermittent Oxygen Delivery Oxygen Delivery High Flow Nasal Cannula Oxygen Flow Rate 2 Pulse Oximetry (90- 93 100) Last Vital Signs Temperature 99.5 F 09/08/25 09:51 Pulse Rate 85 09/08/25 14:46 Respiratory Rate 14 09/08/25 14:46 Pulse Oximetry 100 09/08/25 14:46 Blood Pressure 94/55 L 09/08/25 14:46 Blood Pressure Mean 67 09/08/25 14:46 Oxygen Delivery Nasal Cannula 09/08/25 14:13 Oxygen Flow Rate 2 09/08/25 14:13 Weight 64.9 kg 09/08/25 09:51 Last Result - Abnormals Only WBC 4.1 K/mm3 (4.5-10.0) L 09/08/25 10:20 RBC 3.64 M/mm3 (4.6-6.20) L 09/08/25 10:20 Hgb 10.5 g/dL (14.0-18.0) L 09/08/25 10:20 Hct 33.5 % (42.0-52.0) L 09/08/25 10:20 MCHC 31.3 g/dl (32-36) L 09/08/25 10:20 Plt Count 71 k/mm3 (150-375) L 09/08/25 10:20 MPV 12.4 fl (7.4-10.4) H 09/08/25 10:20 Neut % (Auto) 91.6 % (45.5-73.1) H 09/08/25 10:20 Lymph % (Auto) 2.9 % (18.3-44.2) L 09/08/25 10:20 Lymph # (Auto) 0.12 K/mm3 (0.9-3.2) L 09/08/25 10:20 PT 16.0 Seconds (11.1-14.7) H 09/08/25 10:20 Sodium 136 mmol/L (137-145) L 09/08/25 10:20 Anion Gap 2 mmol/L (4-12) L 09/08/25 10:20 Total Protein 5.4 g/dL (6.3-8.2) L 09/08/25 10:20 Albumin 2.9 g/dL (3.5-5.1) L 09/08/25 10:20 Urine Urobilinogen 2.0 mg/dL (<2.0) H 09/08/25 10:20 Leukocyte Esterase Rfl 1+ IESHA/UL (Negative) H 09/08/25 10:20
--- NOTE | 2025-09-08 15:41 | WNDPHOTO ---
PHOTO ONLY - See Nursing Notes and/ or assessments for documentation.
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
[2025-09-08] MEDS: SODIUM CHLORIDE 0.9% IV 1,000 ML 125 ML IV CONT (17:31)
[2025-09-08] MEDS: cefTRIAXone 1 GM in SODIUM CHLORIDE 0.9% IV 50 ML 100 ML IVPB (17:39)
[2025-09-08] MEDS: AZITHROMYCIN IV 500 MG in SODIUM CHLORIDE 0.9% IV 250 ML IVPB (18:15)
[2025-09-08] MEDS: clonazePAM (*CRX) 0.25 MG TABLET PO (20:59)
[2025-09-08] MEDS: TAMSULOSIN HCL 0.4 MG CAPSULE PO (20:59)
[2025-09-08] MEDS: ATORVASTATIN 40 MG TABLET PO (20:59)
[2025-09-08] MEDS: GABAPENTIN 400 MG CAPSULE 1200 MG PO (20:59)
[2025-09-09] VITALS (22 sets, daily range): BP systolic 92–158; BP diastolic 37–71; PULSE 63–84; RESP 14–24; TEMP 36.6–37.4; O2SAT 92–98; BMI 21.8
[2025-09-09] MEDS: SODIUM CHLORIDE 0.9% IV 1,000 ML 125 ML IV CONT (01:31)
[2025-09-09] MEDS: IPRATROPIUM 0.5 MG/ALBUTEROL SULFATE 2.5 MG (BASE) AMPUL.NEB 3 ML INHALATION ×4 (01:40→19:49)
[2025-09-09 03:53] LABS: Hematocrit 27.2 % (42.0-52.0); Hemoglobin 8.4 g/dL (14.0-18.0); Immature Granulocyte Percent A 0.5 % (0-0.5); Immature Platelet Fraction Pct 6.2 % (0.9-11.2); Lymphocytes Absolute Auto 0.68 K/mm3 (0.9-3.2); Mean Corpuscular HGB Conc 30.9 g/dl (32-36); Mean Corpuscular Hemoglobin 28.5 pg (26-34); Mean Corpuscular Volume 92.2 fl (80-100); Nucleated Red Blood Cells Absolute Auto 0.000 K/mm3 (0.0-0.012); Nucleated Red Blood Cells Perc 0.0 % (0.0-0.2); Platelet Count Result 68 k/mm3 (150-375); Red Blood Count 2.95 M/mm3 (4.6-6.20); White Blood Count 5.8 K/mm3 (4.5-10.0)
[2025-09-09 04:07] LABS: Anion Gap 2 mmol/L (4-12); Blood Urea Nitrogen 17 mg/dL (9-20); Calcium 8.4 mg/dL (8.4-10.2); Carbon Dioxide 24 mmol/L (22-30); Chloride 109 mmol/L (98-107); Estimated CRCL calculation 72 ml/min; Estimated Glomerular Filt Rate > 60; Glucose 82 mg/dL (65-110); Potassium 3.8 mmol/L (3.4-5.0); Sodium 135 mmol/L (137-145)
[2025-09-09 04:33] LABS: Anisocytosis 1+; Hypochromasia 1+; Ovalocytes Occasional; Schistocytes None Seen
[2025-09-09 06:03] LABS: Influenza A QL RT-PCR Negative (Negative); Influenza B QL RT-PCR Negative (Negative); RSV RNA, RT-PCR Negative (Negative); SARS-CoV-2 RNA PCR Negative (Negative)
[2025-09-09 06:39] LABS: MRSA (PCR) NOT DETECTED (NOT DETECTE)
--- NOTE | 2025-09-09 06:51 | P.PNIM_ITS ---
Progress Note: A&P Assessment and Plan (1) Pneumonia: Qualifiers: Laterality: right Lung location: upper lobe of lung Pneumonia type: due to unspecified organism Qualified Code(s): J18.9 - Pneumonia, unspecified organism Code(s): J18.9 - Pneumonia, unspecified organism Status: Acute Assessment and Plan: Patient with a history of COPD presents with complaints of confusion and fever noticed by family. The patient himself has no complaints. The family further states he has a cough and appeared short of breath. Chronic aspiration concerns as below - CT chest with pneumonia in all lobes with a posterior predominance, material in the right-sided bronchi which may be mucus plugging or aspiration. - MRSA PCR negative - Viral PCR negative - sputum culture pending - supplemental O2 per nasal cannula at 2 L on admission, weaned to this AM - Discontinue Rocephin, start Unasyn for suspected aspiration. Continue azithromycin. - pulmonary hygiene - Mucinex, IS, PEP therapy - COAL DELIVERER eval as below (2) Hypoxemia requiring supplemental oxygen: Code(s): R09.02 - Hypoxemia; Z99.81 - Dependence on supplemental oxygen Status: Acute Assessment and Plan: - Likely related to pneumonia - required up to 2L NC per ED, no documented hypoxia - weaned to RA this AM -DuoNeb scheduled Q 6 (3) Chronic obstructive pulmonary disease: Qualifiers: COPD type: unspecified COPD Qualified Code(s): J44.9 - Chronic obstructive pulmonary disease, unspecified Code(s): J44.9 - Chronic obstructive pulmonary disease, unspecified Status: Chronic Assessment and Plan: - DuoNebs Q6H [facility] - continue home inhalers - currently requiring supplemental O2 per nasal cannula. Baseline room air (4) Insomnia: Qualifiers: Insomnia type: unspecified Qualified Code(s): G47.00 - Insomnia, unspecified Code(s): G47.00 - Insomnia, unspecified Status: Chronic Assessment and Plan: Patient takes multiple home medications. -continue temazepam, trazodone (5) Dyslipidemia: Code(s): E78.5 - Hyperlipidemia, unspecified Status: Chronic Assessment and Plan: -Continue atorvastatin (6) GERD (gastroesophageal reflux disease): Qualifiers: Esophagitis presence: without esophagitis Qualified Code(s): K21.9 - Gastro-esophageal reflux disease without esophagitis Code(s): K21.9 - Gastro-esophageal reflux disease without esophagitis Status: Chronic Assessment and Plan: -Continue omeprazole 40 mg daily (7) Peripheral neuropathy: Qualifiers: Peripheral neuropathy type: polyneuropathy, unspecified Qualified Code(s): G62.9 - Polyneuropathy, unspecified Code(s): G62.9 - Polyneuropathy, unspecified Status: Chronic Assessment and Plan: -continue gabapentin 1200 mg b.i.d. (8) Bipolar depression: Code(s): F31.9 - Bipolar disorder, unspecified Status: Chronic Assessment and Plan: -Continue risperidone, clonazepam (9) Dysphagia: Code(s): R13.10 - Dysphagia, unspecified Status: Acute Assessment and Plan: - POA reports patient has had issues with dysphagia for many years - unclear cause. No history of CVA or dementia - COAL DELIVERER consulted, recommended pureed diet with moderately thick liquids and MBS. Patient initially refused MBS this AM, but now agreeable - aspiration precautions - may need to consider alternate route for nutrition pending MBS (10) Thrombocytopenia: Code(s): D69.6 - Thrombocytopenia, unspecified Status: Acute Assessment and Plan: - chronic issue, unclear cause - Plts 68, stable - no signs of bleeding - SCDs for DVT prophylaxis - monitor CBC (11) Anemia: Code(s): D64.9 - Anemia, unspecified Status: Acute Assessment and Plan: - Hgb 8.4 (10.5 on admission, received fluids overnight). Recent baseline Hgb around 9 per chart review - normocytic - no signs of bleeding - check iron /TIBC, ferritin, B12/folate Plan DVT prophylaxis: SCDs Code status: DNR Dispo: TBD Subjective Date/time seen: 09/09/25 06:51 Interval history: Patient seen and examined at bedside. Patient alert and oriented x4. Denies shortness of breath or cough. Patient initially refused MBS this morning. He is agreeable upon re-evaluation this afternoon. Discussed plan of care with ZEENAT over the phone who states patient has had dysphagia for several years with unclear cause. Patient is noncompliant with dysphagia diet at home. ZEENAT agrees with proceeding with MBS. Review of Systems Review of Systems: All systems reviewed & are unremarkable except as noted in HPI and below Exam Narrative: General: NAD, chronically ill-appearing Eyes: EOMI ENT: neck supple Cardiovascular: Regular rate and rhythm Respiratory: Diffuse rhonchi bilaterally, respirations even and unlabored on room air Gastrointestinal: Soft, non tender Genitourinary: no suprapubic tenderness Musculoskeletal: No edema Skin: warm, dry Neuro: Alert and oriented x4 Psych: Mood appropriate Objective Data Vital Signs Vital Signs: Vital Signs - 24 hr 09/08/25 09:51 09/08/25 10:08 09/08/25 10:15 Temperature 99.5 F Pulse Rate 101 H 97 96 Respiratory Rate 14 23 H 20 Blood Pressure Pulse Oximetry 95 93 92 Oxygen Delivery Oxygen Flow Rate 11/16/25 10:16 09/08/25 10:17 09/08/25 10:21 Temperature Pulse Rate 95 95 Respiratory Rate 21 H 21 H Blood Pressure 88/51 L Pulse Oximetry 92 92 93 Oxygen Delivery High Flow Nasal Cannula Oxygen Flow Rate 2 09/08/25 10:27 09/08/25 10:30 09/08/25 10:31 Temperature Pulse Rate 94 96 95 Respiratory Rate 17 22 H 22 H Blood Pressure 100/56 L 98/53 L Pulse Oximetry 92 92 93 Oxygen Delivery Oxygen Flow Rate 09/08/25 10:45 09/08/25 10:46 09/08/25 11:00 Temperature Pulse Rate 96 96 95 Respiratory Rate 20 21 H 23 H Blood Pressure 98/58 L Pulse Oximetry 92 92 93 Oxygen Delivery Oxygen Flow Rate 09/08/25 11:01 09/08/25 11:15 09/08/25 11:16 Temperature Pulse Rate 99 93 96 Respiratory Rate 16 25 H 10 L Blood Pressure 101/64 109/62 Pulse Oximetry 94 95 95 Oxygen Delivery Oxygen Flow Rate 09/08/25 11:30 09/08/25 11:31 09/08/25 11:45 Temperature Pulse Rate 98 93 93 Respiratory Rate 0 L 19 Blood Pressure 98/58 L Pulse Oximetry 94 94 95 Oxygen Delivery Oxygen Flow Rate 09/08/25 11:46 09/08/25 12:05 09/08/25 12:41 Temperature Pulse Rate 95 97 96 Respiratory Rate 19 20 13 Blood Pressure 98/54 L Pulse Oximetry 95 98 Oxygen Delivery Oxygen Flow Rate 09/08/25 12:45 09/08/25 12:46 09/08/25 12:47 Temperature Pulse Rate 98 95 96 Respiratory Rate 20 20 18 Blood Pressure 105/63 Pulse Oximetry 96 Oxygen Delivery Oxygen Flow Rate 09/08/25 13:24 09/08/25 13:30 09/08/25 13:31 Temperature Pulse Rate 92 95 92 Respiratory Rate 17 16 18 Blood Pressure 105/58 L Pulse Oximetry 97 97 97 Oxygen Delivery Oxygen Flow Rate 09/08/25 13:45 09/08/25 13:46 09/08/25 14:00 Temperature Pulse Rate 93 96 86 Respiratory Rate 21 H 20 18 Blood Pressure 101/64 Pulse Oximetry Oxygen Delivery Oxygen Flow Rate 09/08/25 14:01 09/08/25 14:12 09/08/25 14:13 Temperature Pulse Rate 92 90 90 Respiratory Rate 19 18 18 Blood Pressure 96/58 L Pulse Oximetry 96 Oxygen Delivery Nasal Cannula Oxygen Flow Rate 2 09/08/25 14:15 09/08/25 14:16 09/08/25 14:17 Temperature Pulse Rate 89 85 91 Respiratory Rate 19 14 17 Blood Pressure 90/54 L Pulse Oximetry 96 96 95 Oxygen Delivery Oxygen Flow Rate 09/08/25 14:21 09/08/25 14:25 09/08/25 14:26 Temperature Pulse Rate 89 86 89 Respiratory Rate 18 20 Blood Pressure 97/56 L 97/56 L Pulse Oximetry 96 97 Oxygen Delivery Oxygen Flow Rate 09/08/25 14:30 09/08/25 14:31 09/08/25 14:45 Temperature Pulse Rate 94 90 87 Respiratory Rate 19 17 14 Blood Pressure 98/55 L Pulse Oximetry 97 97 95 Oxygen Delivery Oxygen Flow Rate 09/08/25 14:46 09/08/25 15:12 09/08/25 16:00 Temperature 98.7 F Pulse Rate 85 85 83 Respiratory Rate 14 22 H 16 Blood Pressure 94/55 L 102/60 106/51 L Pulse Oximetry 100 94 95 Oxygen Delivery Oxygen Flow Rate 09/08/25 16:00 09/08/25 16:00 09/08/25 18:00 Temperature Pulse Rate 84 84 84 Respiratory Rate 16 Blood Pressure Pulse Oximetry 95 Oxygen Delivery Nasal Cannula Oxygen Flow Rate 2 09/08/25 19:53 09/08/25 19:58 09/08/25 20:00 Temperature 98.2 F Pulse Rate 84 82 Respiratory Rate 20 21 H Blood Pressure 120/65 Pulse Oximetry 98 97 Oxygen Delivery Nasal Cannula Oxygen Flow Rate 2 09/08/25 20:00 09/08/25 20:00 09/08/25 20:08 Temperature Pulse Rate 77 87 Respiratory Rate 20 Blood Pressure Pulse Oximetry 99 Oxygen Delivery Nasal Cannula Oxygen Flow Rate 2 09/08/25 22:00 09/09/25 00:00 09/09/25 00:00 Temperature 99.4 F Pulse Rate 85 72 Respiratory Rate 16 Blood Pressure 92/37 L Pulse Oximetry 96 95 Oxygen Delivery Nasal Cannula Oxygen Flow Rate 2 09/09/25 00:00 09/09/25 01:40 09/09/25 01:50 Temperature Pulse Rate 76 84 79 Respiratory Rate 20 20 Blood Pressure Pulse Oximetry Oxygen Delivery Oxygen Flow Rate 09/09/25 02:00 09/09/25 04:00 09/09/25 04:00 Temperature 98.4 F Pulse Rate 72 77 Respiratory Rate 14 Blood Pressure 120/62 Pulse Oximetry 96 96 Oxygen Delivery Nasal Cannula Oxygen Flow Rate 2 09/09/25 04:00 09/09/25 06:00 Temperature Pulse Rate 69 78 Respiratory Rate Blood Pressure Pulse Oximetry Oxygen Delivery Oxygen Flow Rate Intake/Output Intake/Output: Intake & Output 09/06/25 09/07/25 09/08/25 09/09/25 23:59 23:59 23:59 23:59 Intake Total 2290 1300 Output Total 325 620 Balance 1965 680 Meds/Results Medications: Active Medications Generic Name Dose Route Start Last Admin Trade Name Freq PRN Reason Stop Dose Admin Acetaminophen 650 mg 09/08/25 13:53 Acetaminophen 325 Mg Tablet PO Q4H PRN Mild Pain (1-3) or Fever Albuterol/Ipratropium 3 ml 09/09/25 02:00 09/09/25 01:40 Ipratropium 0.5 Mg/Albuterol Sulfate 2.5 Mg (Base) Ampul.Neb 3 Ml INHALATION 3 ml Q6HRT JESSIKA Administration Aspirin 81 mg 09/09/25 09:00 Aspirin 81 Mg Enteric Tablet PO DAILY JESSIKA Atorvastatin Calcium 40 mg 09/08/25 21:00 09/08/25 20:59 Atorvastatin 40 Mg Tablet PO 40 mg QHS JESSIKA Administration Clonazepam 0.25 mg 09/08/25 21:00 09/08/25 20:59 Clonazepam (*Crx) 0.25 Mg Tablet PO 0.25 mg HS JESSIKA Administration Dextrose 12.5 gm 09/08/25 17:46 Dextrose 50% 25 Gm/50 Ml Syringe IV PUSH PRN PRN Hypoglycemia Protocol Diclofenac Sodium 50 mg 09/09/25 09:00 Diclofenac Sod 25 Mg Tablet.Ec PO BID JESSIKA Duloxetine HCl 30 mg 09/08/25 21:00 09/08/25 20:59 Duloxetine Hcl 30 Mg Capsule.Dr PO 30 mg HS JESSIKA Administration Fluticasone/Umeclidinium/Vilanterol 1 puff 09/09/25 08:00 Fluticasone/Umeclidin/Vilanter 100-62.5-25 Mcg Ellipta INHALATION DAILYRT JESSIKA Gabapentin 1,200 mg 09/08/25 21:00 09/08/25 20:59 Gabapentin 400 Mg Capsule PO 1,200 mg BID JESSIKA Administration Glucagon 1 mg 09/08/25 17:46 Glucagon For Inj 1 Mg Vial IM PRN PRN Hypoglycemia Protocol Glucose 15 gm 09/08/25 17:46 Glucose Oral Gel 15 Gm Of Glucse In 37.5 Gm Tube PO PRN PRN Hypoglycemia Protocol Guaifenesin 200 mg 09/08/25 18:00 09/09/25 05:11 Guaifenesin 200 Mg/10 Ml Udc PO 200 mg Q6HR JESSIKA Administration Sodium Chloride 1,000 mls @ 125 mls/hr 09/08/25 13:55 09/09/25 01:31 Normal Saline Iv IV CONT 125 mls/hr .Q8H JESSIKA Administration Ceftriaxone Sodium 1 gm/ 50 mls @ 100 mls/hr 09/08/25 19:00 09/08/25 17:39 Sodium Chloride IVPB 100 mls/hr Q24H JESSIKA Administration Azithromycin 500 mg/ Sodium 250 mls @ 250 mls/hr 09/08/25 18:00 09/08/25 18:15 Chloride IVPB 09/12/25 18:59 250 mls/hr Q24H JESSIKA Administration Dextrose 1,000 mls @ 100 mls/hr 09/08/25 17:46 Dextrose 5% 1,000 Ml IVPB PRN PRN Hypoglycemia Protocol Insulin Aspart 2 - 5 units 09/08/25 17:00 09/08/25 18:05 Insulin Aspart (*Bkc) 100 Units/Ml SUB-Q Not Given TIDWM [facility] Protocol Lisinopril 20 mg 09/09/25 09:00 Lisinopril 20 Mg Tablet PO DAILY [facility] Lisinopril 10 mg 09/08/25 21:00 09/08/25 20:59 Lisinopril 10 Mg Tablet PO 10 mg On Hold: 09/09/25 00:58 HS JESSIKA Administration Morphine Sulfate 2 mg 09/08/25 13:53 Morphine Sulfate (*Crx) 4 Mg/Ml Inj IV PUSH Q2H PRN Pain Rated 7-10 Nonformulary 1 each 09/08/25 18:28 Nutritional XX 09/09/25 18:27 Supplement (Vitamin PRN PRN X46-[id number] Acid [ PROTOCOL Foltrate] 0 Ondansetron HCl 4 mg 09/08/25 13:53 Ondansetron Inj 4 Mg/2 Ml Vial IV PUSH Q4H PRN Nausea Pantoprazole Sodium 40 mg 09/09/25 09:00 Pantoprazole 40 Mg Tablet PO Q12HR JESSIKA Risperidone 4 mg 09/08/25 21:00 09/08/25 20:58 Risperidone 1 Mg Tablet PO 4 mg HS JESSIKA Administration Tamsulosin HCl 0.4 mg 09/08/25 21:00 09/08/25 20:59 Tamsulosin Hcl 0.4 Mg Capsule PO 0.4 mg QHS JESSIKA Administration Temazepam 15 mg 09/08/25 17:50 Temazepam (*Crx) 15 Mg Capsule PO QHS PRN Sleep Topiramate 200 mg 09/09/25 09:00 Topiramate 100 Mg Tablet PO Q12HR JESSIKA Trazodone HCl 200 mg 09/08/25 21:00 09/08/25 20:58 Trazodone Hcl 50 Mg Tablet PO 200 mg HS JESSIKA Administration Trazodone HCl 100 mg 09/09/25 18:00 Trazodone Hcl 50 Mg Tablet PO DAILY@1800 [facility] Vitamin D 50 mcg 09/09/25 09:00 Cholecalciferol (Vitamin D3) 25 Mcg (1,000 Units) Tablet PO DAILY [facility] Radiology Results: ITS Impressions Head CT 09/08/25 12:05 IMPRESSION: 1. No acute intracranial findings. Chest/Abdomen/Pelvis CT 09/08/25 12:25 IMPRESSION: 1. Pneumonia in all lobes with a posterior predominance. 2. Material in right-sided bronchi, which may be mucous plugging or aspiration. Chest X-Ray 09/08/25 12:32 IMPRESSION: 1. Pulmonary edema and/or multifocal bilateral airspace disease. Labs Labs: Laboratory Results - last 24 hr 09/08/25 09/08/25 09/09/25 10:20 21:04 03:23 WBC 4.1 L 5.8 RBC 3.64 L 2.95 L Hgb 10.5 L 8.4 L Hct 33.5 L 27.2 L MCV 92.0 92.2 MCH 28.8 28.5 MCHC 31.3 L 30.9 L RDW 14.4 14.6 H Plt Count 71 L 68 L MPV 12.4 H 12.2 H Immature Gran % (Auto) 0.2 0.5 Neut % (Auto) 91.6 H 83.7 H Lymph % (Auto) 2.9 L 11.6 L [place] % (Auto) 5.1 3.8 Eos % (Auto) 0.0 0.2 Baso % (Auto) 0.2 0.2 Lymph # (Auto) 0.12 L 0.68 L [place] # (Auto) 0.2 0.2 Eos # (Auto) 0.0 0.0 Baso # (Auto) 0.0 0.0 Abs Immat Gran (auto) 0.01 0.03 Absolute Neuts (auto) 3.8 4.9 Absolute Nucleated RBC 0.000 0.000 Band Neutrophils % Not Reportable Nucleated RBC % 0.0 0.0 Platelet Estimate Decreased % Immature Plt Fraction 5.8 6.2 Hypochromasia 1+ Anisocytosis 1+ Ovalocytes Occasional Schistocytes None seen PT 16.0 H INR 1.3 APTT 35.3 Sodium 136 L 135 L Potassium 4.0 3.8 Chloride 107 109 H Carbon Dioxide 27 24 Anion Gap 2 L 2 L BUN 20 17 Creatinine 0.91 0.76 Estim Creat Clear Calc Not Reportable 72 Estimated GFR > 60 > 60 Glucose 100 82 POC Capillary Glucose 88 Calcium 8.8 8.4 Total Bilirubin 0.5 AST 25 ALT 35 Alkaline Phosphatase 79 Total Protein 5.4 L Albumin 2.9 L Urine Color Yellow Urine Appearance Clear Urine pH 7.5 Ur Specific [place] 1.017 Urine Protein Negative Urine Glucose (UA) Negative Urine Ketones Negative Ur Blood (Man) Negative Urine Nitrate Negative Urine Bilirubin Negative Urine Urobilinogen 2.0 H Add Ur Microanalysis Reviewed Leukocyte Esterase Rfl 1+ H Urine RBC 0-2 Urine WBC 0-5 Ur Squamous Epith Cells None seen Urine Bacteria None seen Urine Casts 0-2 Nasal MRSA (PCR) Influenza A (RT-PCR) Influenza B (RT-PCR) RSV (RT-PCR) SARS-CoV-2 RNA (RT-PCR) 09/09/25 05:17 WBC RBC Hgb Hct MCV MCH MCHC RDW Plt Count MPV Immature Gran % (Auto) Neut % (Auto) Lymph % (Auto) [place] % (Auto) Eos % (Auto) Baso % (Auto) Lymph # (Auto) [place] # (Auto) Eos # (Auto) Baso # (Auto) Abs Immat Gran (auto) Absolute Neuts (auto) Absolute Nucleated RBC Band Neutrophils % Nucleated RBC % Platelet Estimate % Immature Plt Fraction Hypochromasia Anisocytosis Ovalocytes Schistocytes PT INR APTT Sodium Potassium Chloride Carbon Dioxide Anion Gap BUN Creatinine Estim Creat Clear Calc Estimated GFR Glucose POC Capillary Glucose Calcium Total Bilirubin AST ALT Alkaline Phosphatase Total Protein Albumin Urine Color Urine Appearance Urine pH Ur Specific [place] Urine Protein Urine Glucose (UA) Urine Ketones Ur Blood (Man) Urine Nitrate Urine Bilirubin Urine Urobilinogen Add Ur Microanalysis Leukocyte Esterase Rfl Urine RBC Urine WBC Ur Squamous Epith Cells Urine Bacteria Urine Casts Nasal MRSA (PCR) Not detected Influenza A (RT-PCR) Negative Influenza B (RT-PCR) Negative RSV (RT-PCR) Negative SARS-CoV-2 RNA (RT-PCR) Negative Quality VTE Prophylaxis VTE prophylaxis: mechanical ordered
--- NOTE | 2025-09-09 08:21 | PCSTNOTE ---
Please refer to the Bedside Swallow Evaluation in the EMR. Please note, silent aspiration cannot be ruled out at bedside. The patient is a 70 year old male known to this [facility] admitted with diagnosis of pneumonia and a history of bi-polar. This patient has been on a regular diet with moderately thick liquid and assisted with care by family. He was last seen by speech therapy in April of 2025 where a MBS recommended. However, at that time the POA did not wish to have it completed as he and the patient did not want to have his diet changed or consider other alternate nutrition options. The patient was positioned upright in bed. However, the patient frequently lowered the bed from and upright position every with request o stay upright for safe intake. The patient had on oxygen but would remove frequently. The patient was presented the following consistencies: moderately thick liquids via straw, puree consistency and solids. Oral Stage: The patient is impulsive taking large bites and drinks with a compromised lower elevated position. The patient has limited dentition and does not appear to always fully masticate his solids. Pharyngeal Stage: When presented solids and moderately thick liquids the patient had intermittent coughing during and following the trials. May in part be due to poorly masticated bolus, bolus size, and delayed swallow initiation. Vocal quality was not wet n quality till toward end of meal. The patient did state to the RAIL OPERATIONS CONTROLLER he would be agreeable to an MBS. RAIL OPERATIONS CONTROLLER called and left message for POA Recommend: 1. Puree Diet / Level 4 2. Moderately thick liquids/ Level 3. 3. Upright with meals 4. Small bites and drinks 5. Frequent Supervision 6. MBS would be recommended called POA
[2025-09-09] MEDS: FLUTICASONE/UMECLIDIN/VILANTER 100-62.5-25 MCG ELLIPTA 1 PUFF INHALATION (08:35)
[2025-09-09] MEDS: ASPIRIN 81 MG ENTERIC TABLET PO (09:52)
[2025-09-09] MEDS: DICLOFENAC SOD 25 MG TABLET.EC 50 MG PO ×2 (09:52→16:47)
[2025-09-09] MEDS: PANTOPRAZOLE 40 MG TABLET PO ×2 (09:53→20:43)
[2025-09-09] MEDS: TOPIRAMATE 100 MG TABLET 200 MG PO ×2 (09:54→20:58)
[2025-09-09] MEDS: CHOLECALCIFEROL (VITAMIN D3) 25 MCG (1,000 UNITS) TABLET 50 MCG PO (09:54)
[2025-09-09 09:59] LABS: Procalcitonin 9.6 ng/mL
[2025-09-09] MEDS: AMPICILLIN SODIUM/SULBACTAM 3 GM in SODIUM CHLORIDE 0.9% IV 100 ML 200 ML IVPB ×3 (10:02→20:41)
--- NOTE | 2025-09-09 14:44 | PCRCNOTE ---
Pt. states he has a home CPAP but does not wear it and does not want to borrow one of ours. R.N. notified.
[2025-09-09 15:18] LABS: Iron 36 ug/dL (49-181)
[2025-09-09 15:27] LABS: Percent Iron Saturation 13 % (20-50)
--- NOTE | 2025-09-09 15:50 | PCSTNOTE ---
Please refer to the Modified Barium Swallow Evaluation in the EMR. The patient is a 70 year old male with a history of dysphagia and pneumonia. Admitted for pneumonia with a history of a regular diet and moderately thick liquid. The patient is cared for by family. Orders received to complete a MBS based on results of the BSE with noted coughing across consistencies in part due to patients poor tolerance for an upright position and impulsivity with large bites and drinks. Oral Stage: Timely oral preparation and transit for all consistencies except single trial of cracker which required extra time to masticate and formulate the bolus due to limited dentition. 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 With single cup trials moderately thick liquid barium trace penetration was noted after the swallow due to spillage from the vallecula between swallows into the airway. It remained above the vocal folds and was not ejected. However, the volume of residual in the vallecula and pyriform sinus placed the patient at risk for further aspiration or penetration between swallows. The residual continued to accumulate with the continuation of the MBS. The patient was unable to follow directives to perform a repeat swallow via verbal or visual cues. Additional trace residual remained along the pharyngeal wall due to reduced pharyngeal contraction. The patient is at high risk for aspiration and/or penetration across consistencies due to the significant of residual that accumulates and remains in the vallecula and pyriform sinus and patient inability to clear between swallows. Recommend 1. Would recommend consideration of alternate means of nutrition given the high risk of aspiration. ( If family/patient do not wish to pursue alternate means recommend 1. Puree/Level 4 Diet 2. Moderately thick/Level 3 liquid 3. Upright with meals 4. One on One supervision 5. Small bites and drinks 6. Repeat swallow every bite and drink as able. ) Speech services to attempt to address Tongue base retraction and use of compensatory techniques.
[2025-09-09 15:59] LABS: Ferritin 14.50 ng/mL (11.1-264)
[2025-09-09 16:17] LABS: NT Pro B Type Natriuretic Pept 1610 pg/mL (19.9-100)
[2025-09-09 16:25] LABS: Vitamin B12 884.0 pg/mL (239-931)
--- NOTE | 2025-09-09 16:36 | PC.NURSE ---
This nurse spoke with Deana OLIVAS who stated that the patient will need help with eating dinner and breakfast. If any concerns of aspiration occur, the nurse is to place the patient on npo. Deana also told this nurse that she spoke with Shaq the POA who stated that he will be speaking with his sister and the patient to determine the plan of care going forward.
[2025-09-09] MEDS: AZITHROMYCIN IV 500 MG in SODIUM CHLORIDE 0.9% IV 250 ML IVPB (16:44)
[2025-09-09] MEDS: GABAPENTIN 400 MG CAPSULE 1200 MG PO (16:47)
--- NOTE | 2025-09-09 18:28 | PC.NURSE ---
REPORT GIVEN TO SYL, PATIENT TAKEN TO [facility] SURG, BELONGINGS WITH PATIENT, VERBALIZES UNDERSTANDING OF NEED FOR TRANSFER.
--- NOTE | 2025-09-09 18:31 | PC.NURSE ---
JOYCE THE POA FOR THE PATIENT MADE AWARE OF TRANSFER FOR ROOM 307-2
[2025-09-09] MEDS: clonazePAM (*CRX) 0.25 MG TABLET PO (20:43)
[2025-09-09] MEDS: ATORVASTATIN 40 MG TABLET PO (20:43)
[2025-09-09] MEDS: TAMSULOSIN HCL 0.4 MG CAPSULE PO (20:43)
[2025-09-10] VITALS (11 sets, daily range): BP systolic 129–132; BP diastolic 62–64; PULSE 58–74; RESP 14–20; TEMP 36.4–36.6; O2SAT 94–97
[2025-09-10] MEDS: IPRATROPIUM 0.5 MG/ALBUTEROL SULFATE 2.5 MG (BASE) AMPUL.NEB 3 ML INHALATION ×4 (02:12→19:30)
[2025-09-10] MEDS: AMPICILLIN SODIUM/SULBACTAM 3 GM in SODIUM CHLORIDE 0.9% IV 100 ML 200 ML IVPB ×4 (02:16→20:11)
[2025-09-10 06:36] LABS: Hematocrit 27.9 % (42.0-52.0); Hemoglobin 8.7 g/dL (14.0-18.0); Immature Granulocyte Percent A 0.5 % (0-0.5); Immature Platelet Fraction Pct 8.5 % (0.9-11.2); Lymphocytes Absolute Auto 0.55 K/mm3 (0.9-3.2); Mean Corpuscular HGB Conc 31.2 g/dl (32-36); Mean Corpuscular Hemoglobin 28.9 pg (26-34); Mean Corpuscular Volume 92.7 fl (80-100); Nucleated Red Blood Cells Absolute Auto 0.000 K/mm3 (0.0-0.012); Nucleated Red Blood Cells Perc 0.0 % (0.0-0.2); Platelet Count Result 62 k/mm3 (150-375); Red Blood Count 3.01 M/mm3 (4.6-6.20); White Blood Count 4.3 K/mm3 (4.5-10.0)
[2025-09-10 06:59] LABS: Alanine Aminotransferase 28 U/L (6-50); Albumin Level 2.5 g/dL (3.5-5.1); Alkaline Phosphatase 72 U/L (38-126); Anion Gap 2 mmol/L (4-12); Aspartate Amino Transferase 22 U/L (17-59); Bilirubin,Total 0.5 mg/dL (0.2-1.3); Blood Urea Nitrogen 13 mg/dL (9-20); Calcium 9.0 mg/dL (8.4-10.2); Carbon Dioxide 25 mmol/L (22-30); Chloride 109 mmol/L (98-107); Estimated CRCL calculation 77 ml/min; Estimated Glomerular Filt Rate > 60; Glucose 84 mg/dL (65-110); Potassium 3.6 mmol/L (3.4-5.0); Sodium 136 mmol/L (137-145); Total Protein 5.1 g/dL (6.3-8.2)
[2025-09-10] MEDS: CHOLECALCIFEROL (VITAMIN D3) 25 MCG (1,000 UNITS) TABLET 50 MCG PO (08:12)
[2025-09-10] MEDS: PANTOPRAZOLE 40 MG TABLET PO ×2 (08:12→20:13)
[2025-09-10] MEDS: ASPIRIN 81 MG ENTERIC TABLET PO (08:12)
[2025-09-10] MEDS: GABAPENTIN 400 MG CAPSULE 1200 MG PO ×2 (08:13→17:09)
[2025-09-10] MEDS: DICLOFENAC SOD 25 MG TABLET.EC 50 MG PO ×2 (08:13→17:09)
[2025-09-10] MEDS: TOPIRAMATE 100 MG TABLET 200 MG PO ×2 (08:13→20:13)
[2025-09-10] MEDS: FLUTICASONE/UMECLIDIN/VILANTER 100-62.5-25 MCG ELLIPTA 1 PUFF INHALATION (08:59)
--- NOTE | 2025-09-10 12:50 | P.PNIM_ITS ---
Progress Note: A&P Assessment and Plan (1) Pneumonia: Qualifiers: Laterality: right Lung location: upper lobe of lung Pneumonia type: due to unspecified organism Qualified Code(s): J18.9 - Pneumonia, unspecified organism Code(s): J18.9 - Pneumonia, unspecified organism Status: Acute Assessment and Plan: Patient with a history of COPD presents with complaints of confusion and fever noticed by family. The patient himself has no complaints. The family further states he has a cough and appeared short of breath. Chronic aspiration concerns as below - CT chest with pneumonia in all lobes with a posterior predominance, material in the right-sided bronchi which may be mucus plugging or aspiration. - MRSA PCR negative - Viral PCR negative - sputum culture pending - supplemental O2 per nasal cannula at 2 L on admission, weaned to RA. - Discontinue Rocephin, started on Unasyn for suspected aspiration. 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 (2) Hypoxemia requiring supplemental oxygen: Code(s): R09.02 - Hypoxemia; Z99.81 - Dependence on supplemental oxygen Status: Acute Assessment and Plan: - Likely related to pneumonia - required up to 2L NC per ED, no documented hypoxia - weaned to RA -DuoNeb scheduled Q 6 (3) Chronic obstructive pulmonary disease: Qualifiers: COPD type: unspecified COPD Qualified Code(s): J44.9 - Chronic obstructive pulmonary disease, unspecified Code(s): J44.9 - Chronic obstructive pulmonary disease, unspecified Status: Chronic Assessment and Plan: - DuoNebs Q6H [facility] - continue home inhalers - currently requiring supplemental O2 per nasal cannula. Baseline room air (4) Insomnia: Qualifiers: Insomnia type: unspecified Qualified Code(s): G47.00 - Insomnia, unspecified Code(s): G47.00 - Insomnia, unspecified Status: Chronic Assessment and Plan: Patient takes multiple home medications. -continue temazepam, trazodone (5) Dyslipidemia: Code(s): E78.5 - Hyperlipidemia, unspecified Status: Chronic Assessment and Plan: -Continue atorvastatin (6) GERD (gastroesophageal reflux disease): Qualifiers: Esophagitis presence: without esophagitis Qualified Code(s): K21.9 - Gastro-esophageal reflux disease without esophagitis Code(s): K21.9 - Gastro-esophageal reflux disease without esophagitis Status: Chronic Assessment and Plan: -Continue omeprazole 40 mg daily (7) Peripheral neuropathy: Qualifiers: Peripheral neuropathy type: polyneuropathy, unspecified Qualified Code(s): G62.9 - Polyneuropathy, unspecified Code(s): G62.9 - Polyneuropathy, unspecified Status: Chronic Assessment and Plan: -continue gabapentin 1200 mg b.i.d. (8) Bipolar depression: Code(s): F31.9 - Bipolar disorder, unspecified Status: Chronic Assessment and Plan: -Continue risperidone, clonazepam (9) Dysphagia: Code(s): R13.10 - Dysphagia, unspecified Status: Acute Assessment and Plan: - POA reports patient has had issues with dysphagia for many years - unclear cause. No history of CVA or dementia - SUGAR CANE PLANTER MACHINE OPERATOR consulted, recommended pureed diet with moderately thick liquids and MBS. Patient initially refused MBS this AM, but now agreeable - aspiration precautions - may need to consider alternate route for nutrition MBS results reviewed. Needs to be on a puree level 4 diet moderately thickened versus alternate route of nutrition. Family to decide (10) Thrombocytopenia: Code(s): D69.6 - Thrombocytopenia, unspecified Status: Acute Assessment and Plan: - chronic issue, unclear cause - Plts 68, stable - no signs of bleeding - SCDs for DVT prophylaxis - monitor CBC (11) Anemia: Code(s): D64.9 - Anemia, unspecified Status: Acute Assessment and Plan: - Hgb 8.4 (10.5 on admission, received fluids overnight). Recent baseline Hgb around 9 per chart review - normocytic - no signs of bleeding - check iron /TIBC, ferritin, B12/folate Plan DVT prophylaxis: SCDs Code status: DNR Dispo: TBD Subjective Date/time seen: 09/10/25 12:50 Interval history: Patient on a pureed diet. Discussed with nursing staff. He denies any new issues. Wants to go home. MBS reviewed Review of Systems Review of Systems: All systems reviewed & are unremarkable except as noted in HPI and below Exam Narrative: General: NAD, chronically ill-appearing Eyes: EOMI ENT: neck supple Cardiovascular: Regular rate and rhythm Respiratory: Diminished breath sounds bilaterally no respiratory distress Gastrointestinal: Soft, non tender Genitourinary: no suprapubic tenderness Musculoskeletal: No edema Skin: warm, dry Neuro: Alert and conversant no focal deficits noted Psych: Mood appropriate little irritable at times Objective Data Vital Signs Vital Signs: Vital Signs - 24 hr 09/09/25 13:38 09/09/25 13:44 09/09/25 14:00 Temperature Pulse Rate 75 74 73 Respiratory Rate 20 20 Blood Pressure Pulse Oximetry Oxygen Delivery Fraction of Inspired Oxygen 09/09/25 16:00 09/09/25 19:50 09/09/25 19:56 Temperature 98 F Pulse Rate 69 63 63 Respiratory Rate 24 H 16 16 Blood Pressure 132/66 Pulse Oximetry 98 96 Oxygen Delivery Room Air Fraction of Inspired Oxygen 21 09/09/25 19:58 09/09/25 22:31 09/10/25 02:13 Temperature 98.0 F Pulse Rate 64 66 68 Respiratory Rate 16 16 14 Blood Pressure 158/71 H Pulse Oximetry 98 Oxygen Delivery Fraction of Inspired Oxygen 09/10/25 02:18 09/10/25 06:00 09/10/25 08:00 Temperature 97.5 F L Pulse Rate 68 58 L Respiratory Rate 16 16 Blood Pressure 132/62 Pulse Oximetry 94 94 Oxygen Delivery Room Air Fraction of Inspired Oxygen 09/10/25 08:59 09/10/25 08:59 09/10/25 09:10 Temperature Pulse Rate 70 70 72 Respiratory Rate 20 20 20 Blood Pressure Pulse Oximetry 95 Oxygen Delivery Room Air Fraction of Inspired Oxygen 21 Intake/Output Intake/Output: Intake & Output 09/07/25 09/08/25 09/09/25 09/10/25 23:59 23:59 23:59 23:59 Intake Total 2540 3590 100 Output Total 325 1320 900 Balance 2215 2270 -800 Meds/Results Medications: Active Medications Generic Name Dose Route Start Last Admin Trade Name Freq PRN Reason Stop Dose Admin Acetaminophen 650 mg 09/08/25 13:53 Acetaminophen 325 Mg Tablet PO Q4H PRN Mild Pain (1-3) or Fever Albuterol/Ipratropium 3 ml 09/09/25 02:00 09/10/25 08:59 Ipratropium 0.5 Mg/Albuterol Sulfate 2.5 Mg (Base) Ampul.Neb 3 Ml INHALATION 3 ml Q6HRT JESSIKA Administration Aspirin 81 mg 09/09/25 09:00 09/10/25 08:12 Aspirin 81 Mg Enteric Tablet PO 81 mg DAILY JESSIKA Administration Atorvastatin Calcium 40 mg 09/08/25 21:00 09/09/25 20:43 Atorvastatin 40 Mg Tablet PO 40 mg QHS JESSIKA Administration Clonazepam 0.25 mg 09/08/25 21:00 09/09/25 20:43 Clonazepam (*Crx) 0.25 Mg Tablet PO 0.25 mg HS JESSIKA Administration Dextrose 12.5 gm 09/08/25 17:46 Dextrose 50% 25 Gm/50 Ml Syringe IV PUSH PRN PRN Hypoglycemia Protocol Diclofenac Sodium 50 mg 09/09/25 09:00 09/10/25 08:13 Diclofenac Sod 25 Mg Tablet.Ec PO 50 mg BID JESSIKA Administration Duloxetine HCl 30 mg 09/08/25 21:00 09/09/25 20:44 Duloxetine Hcl 30 Mg Capsule.Dr PO 30 mg HS JESSIKA Administration Fluticasone/Umeclidinium/Vilanterol 1 puff 09/09/25 08:00 09/10/25 08:59 Fluticasone/Umeclidin/Vilanter 100-62.5-25 Mcg Ellipta INHALATION 1 puff DAILYRT JESSIKA Administration Gabapentin 1,200 mg 09/08/25 21:00 09/10/25 08:13 Gabapentin 400 Mg Capsule PO 1,200 mg BID JESSIKA Administration Glucagon 1 mg 09/08/25 17:46 Glucagon For Inj 1 Mg Vial IM PRN PRN Hypoglycemia Protocol Glucose 15 gm 09/08/25 17:46 Glucose Oral Gel 15 Gm Of Glucse In 37.5 Gm Tube PO PRN PRN Hypoglycemia Protocol Guaifenesin 200 mg 09/08/25 18:00 09/10/25 11:55 Guaifenesin 200 Mg/10 Ml Udc PO 200 mg Q6HR JESSIKA Administration Azithromycin 500 mg/ Sodium 250 mls @ 250 mls/hr 09/08/25 18:00 09/09/25 18:08 Chloride IVPB 09/12/25 18:59 Infused Q24H JESSIKA Infusion Dextrose 1,000 mls @ 100 mls/hr 09/08/25 17:46 Dextrose 5% 1,000 Ml IVPB PRN PRN Hypoglycemia Protocol Ampicillin Sodium/Sulbactam 100 mls @ 200 mls/hr 09/09/25 09:00 09/10/25 08:12 Sodium 3 gm/ Sodium Chloride IVPB 200 mls/hr Q6H JESSIKA Administration Insulin Aspart 2 - 5 units 09/08/25 17:00 09/10/25 11:25 Insulin Aspart (*Bkc) 100 Units/Ml SUB-Q Not Given TIDWM JESSIKA Protocol Lisinopril 20 mg 09/09/25 09:00 09/10/25 08:13 Lisinopril 20 Mg Tablet PO 20 mg DAILY JESSIKA Administration Ondansetron HCl 4 mg 09/08/25 13:53 Ondansetron Inj 4 Mg/2 Ml Vial IV PUSH Q4H PRN Nausea Pantoprazole Sodium 40 mg 09/09/25 09:00 09/10/25 08:12 Pantoprazole 40 Mg Tablet PO 40 mg Q12HR JESSIKA Administration Risperidone 4 mg 09/08/25 21:00 09/09/25 20:58 Risperidone 1 Mg Tablet PO 4 mg HS JESSIKA Administration Tamsulosin HCl 0.4 mg 09/08/25 21:00 09/09/25 20:43 Tamsulosin Hcl 0.4 Mg Capsule PO 0.4 mg QHS JESSIKA Administration Temazepam 15 mg 09/08/25 17:50 Temazepam (*Crx) 15 Mg Capsule PO QHS PRN Sleep Topiramate 200 mg 09/09/25 09:00 09/10/25 08:13 Topiramate 100 Mg Tablet PO 200 mg Q12HR JESSIKA Administration Trazodone HCl 200 mg 09/08/25 21:00 09/09/25 20:58 Trazodone Hcl 50 Mg Tablet PO 200 mg HS JESSIKA Administration Trazodone HCl 100 mg 09/09/25 18:00 09/09/25 16:46 Trazodone Hcl 50 Mg Tablet PO 100 mg DAILY@1800 JESSIKA Administration Vitamin D 50 mcg 09/09/25 09:00 09/10/25 08:12 Cholecalciferol (Vitamin D3) 25 Mcg (1,000 Units) Tablet PO 50 mcg DAILY JESSIKA Administration Radiology Results: ITS Impressions Head CT 09/08/25 12:05 IMPRESSION: 1. No acute intracranial findings. Chest/Abdomen/Pelvis CT 09/08/25 12:25 IMPRESSION: 1. Pneumonia in all lobes with a posterior predominance. 2. Material in right-sided bronchi, which may be mucous plugging or aspiration. Chest X-Ray 09/08/25 12:32 IMPRESSION: 1. Pulmonary edema and/or multifocal bilateral airspace disease. Modified Barium Swallow 09/09/25 15:11 IMPRESSION: Aspiration observed on real-time exam. See also speech therapist's notes for complete evaluation. Labs Labs: Laboratory Results - last 24 hr 09/09/25 09/09/25 09/09/25 03:17 03:23 17:03 WBC RBC Hgb Hct MCV MCH MCHC RDW Plt Count MPV Immature Gran % (Auto) Neut % (Auto) Lymph % (Auto) [place] % (Auto) Eos % (Auto) Baso % (Auto) Lymph # (Auto) [place] # (Auto) Eos # (Auto) Baso # (Auto) Abs Immat Gran (auto) Absolute Neuts (auto) Absolute Nucleated RBC Nucleated RBC % % Immature Plt Fraction Sodium Potassium Chloride Carbon Dioxide Anion Gap BUN Creatinine Estim Creat Clear Calc Estimated GFR Glucose POC Capillary Glucose 110 H Calcium Iron 36 L TIBC 285 % Saturation 13 L Ferritin 14.50 Total Bilirubin AST ALT Alkaline Phosphatase NT-Pro-B Natriuret Pep 1610 H TNP Total Protein Albumin Vitamin B12 884.0 Folate 2.2 L 09/10/25 09/10/25 09/10/25 05:30 07:47 11:15 WBC 4.3 L RBC 3.01 L Hgb 8.7 L Hct 27.9 L MCV 92.7 MCH 28.9 MCHC 31.2 L RDW 14.4 Plt Count 62 L MPV 13.0 H Immature Gran % (Auto) 0.5 Neut % (Auto) 81.3 H Lymph % (Auto) 12.7 L [place] % (Auto) 4.4 Eos % (Auto) 0.9 Baso % (Auto) 0.2 Lymph # (Auto) 0.55 L [place] # (Auto) 0.2 Eos # (Auto) 0.0 Baso # (Auto) 0.0 Abs Immat Gran (auto) 0.02 Absolute Neuts (auto) 3.5 Absolute Nucleated RBC 0.000 Nucleated RBC % 0.0 % Immature Plt Fraction 8.5 Sodium 136 L Potassium 3.6 Chloride 109 H Carbon Dioxide 25 Anion Gap 2 L BUN 13 Creatinine 0.70 Estim Creat Clear Calc 77 Estimated GFR > 60 Glucose 84 POC Capillary Glucose 99 138 H Calcium 9.0 Iron TIBC % Saturation Ferritin Total Bilirubin 0.5 AST 22 ALT 28 Alkaline Phosphatase 72 NT-Pro-B Natriuret Pep Total Protein 5.1 L Albumin 2.5 L Vitamin B12 Folate
--- NOTE | 2025-09-10 13:48 | P.CDI_ITS ---
CDI Query Clarification Request Please specify status of COPD, if known. * Exacerbation of COPD * No exacerbation/stable COPD * Other * Unable to determine Assessment and Plan (1) Pneumonia: Qualifiers: Laterality: right Lung location: upper lobe of lung Pneumonia type: due to unspecified organism Qualified Code(s): J18.9 - Pneumonia, unspecified organism Code(s): J18.9 - Pneumonia, unspecified organism Status: Acute Assessment and Plan: Patient with a history of COPD presents with complaints of confusion and fever noticed by family. The patient himself has no complaints. The family further states he has a cough and appeared short of breath. Chronic aspiration concerns as below - CT chest with pneumonia in all lobes with a posterior predominance, material in the right-sided bronchi which may be mucus plugging or aspiration. - MRSA PCR negative - Viral PCR negative - sputum culture pending - supplemental O2 per nasal cannula at 2 L on admission, weaned to RA. - Discontinue Rocephin, started on Unasyn for suspected aspiration. 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 (2) Hypoxemia requiring supplemental oxygen: Code(s): R09.02 - Hypoxemia; Z99.81 - Dependence on supplemental oxygen Status: Acute Assessment and Plan: - Likely related to pneumonia - required up to 2L NC per ED, no documented hypoxia - weaned to RA -DuoNeb scheduled Q 6 (3) Chronic obstructive pulmonary disease: Qualifiers: COPD type: unspecified COPD Qualified Code(s): J44.9 - Chronic obstructive pulmonary disease, unspecified Code(s): J44.9 - Chronic obstructive pulmonary disease, unspecified Status: Chronic Assessment and Plan: - [place] Q6H [facility] - continue home inhalers - currently requiring supplemental O2 per nasal cannula. Baseline room air CXR: IMPRESSION: 1. Pulmonary edema and/or multifocal bilateral airspace disease. <Val Malagon RN - Last Filed: 09/10/25 13:49> Provider Comments No exacerbations/stable COPD <Ayush Vela MD - Last Filed: 09/10/25 18:06>
[2025-09-10] MEDS: AZITHROMYCIN IV 500 MG in SODIUM CHLORIDE 0.9% IV 250 ML IVPB (17:08)
[2025-09-10] MEDS: TAMSULOSIN HCL 0.4 MG CAPSULE PO (20:12)
[2025-09-10] MEDS: clonazePAM (*CRX) 0.25 MG TABLET PO (20:12)
[2025-09-10] MEDS: ATORVASTATIN 40 MG TABLET PO (20:13)
--- NOTE | 2025-09-11 01:10 | PC.NURSE ---
pt asked this nurse not to wake him for his 12am dose of cough syrup he stated he will take in am.
[2025-09-11] MEDS: IPRATROPIUM 0.5 MG/ALBUTEROL SULFATE 2.5 MG (BASE) AMPUL.NEB 3 ML INHALATION ×2 (01:47→07:19)
[2025-09-11 01:49] VITALS: PULSE 73; RESP 18
[2025-09-11 01:55] VITALS: PULSE 76; RESP 18
[2025-09-11] MEDS: AMPICILLIN SODIUM/SULBACTAM 3 GM in SODIUM CHLORIDE 0.9% IV 100 ML 200 ML IVPB (02:00)
[2025-09-11 05:27] VITALS: BP 155/76; PULSE 68; RESP 18; TEMP 36.4; O2SAT 93
[2025-09-11 06:36] LABS: Hematocrit 28.2 % (42.0-52.0); Hemoglobin 8.7 g/dL (14.0-18.0); Immature Granulocyte Percent A 0.7 % (0-0.5); Immature Platelet Fraction Pct 6.6 % (0.9-11.2); Lymphocytes Absolute Auto 0.53 K/mm3 (0.9-3.2); Mean Corpuscular HGB Conc 30.9 g/dl (32-36); Mean Corpuscular Hemoglobin 28.4 pg (26-34); Mean Corpuscular Volume 92.2 fl (80-100); Nucleated Red Blood Cells Absolute Auto 0.000 K/mm3 (0.0-0.012); Nucleated Red Blood Cells Perc 0.0 % (0.0-0.2); Platelet Count Result 76 k/mm3 (150-375); Red Blood Count 3.06 M/mm3 (4.6-6.20); White Blood Count 4.1 K/mm3 (4.5-10.0)
[2025-09-11 06:57] LABS: Alanine Aminotransferase 50 U/L (6-50); Albumin Level 2.5 g/dL (3.5-5.1); Alkaline Phosphatase 80 U/L (38-126); Anion Gap 1 mmol/L (4-12); Aspartate Amino Transferase 32 U/L (17-59); Bilirubin,Total 0.5 mg/dL (0.2-1.3); Blood Urea Nitrogen 12 mg/dL (9-20); Calcium 9.1 mg/dL (8.4-10.2); Carbon Dioxide 27 mmol/L (22-30); Chloride 108 mmol/L (98-107); Estimated CRCL calculation 72 ml/min; Estimated Glomerular Filt Rate > 60; Glucose 93 mg/dL (65-110); Magnesium 2.1 mg/dL (1.6-2.3); Potassium 3.7 mmol/L (3.4-5.0); Sodium 136 mmol/L (137-145); Total Protein 5.0 g/dL (6.3-8.2)
[2025-09-11 07:13] LABS: Procalcitonin 3.3 ng/mL
[2025-09-11 07:15] VITALS: PULSE 72; RESP 18
[2025-09-11] MEDS: FLUTICASONE/UMECLIDIN/VILANTER 100-62.5-25 MCG ELLIPTA 1 PUFF INHALATION (07:21)
[2025-09-11 07:22] VITALS: PULSE 75; RESP 18
[2025-09-11] MEDS: CHOLECALCIFEROL (VITAMIN D3) 25 MCG (1,000 UNITS) TABLET 50 MCG PO (09:17)
[2025-09-11] MEDS: ASPIRIN 81 MG ENTERIC TABLET PO (09:17)
[2025-09-11] MEDS: FOLIC ACID 1 MG TABLET PO (09:17)
[2025-09-11] MEDS: DICLOFENAC SOD 25 MG TABLET.EC 50 MG PO (09:17)
[2025-09-11] MEDS: PANTOPRAZOLE 40 MG TABLET PO (09:17)
[2025-09-11] MEDS: GABAPENTIN 400 MG CAPSULE 1200 MG PO (09:17)
[2025-09-11] MEDS: TOPIRAMATE 100 MG TABLET 200 MG PO (09:18)
[2025-09-11] MEDS: AZITHROMYCIN 250 MG TABLET PO (13:01)
--- NOTE | 2025-09-11 14:09 | P.DS_ITS ---
DS: Admitting Diagnosis Discharge Date 09/11/25 Admitting Diagnosis Altered mental status, fever DS: Discharge Diagnosis Discharge Diagnosis (1) Pneumonia: Qualifiers: Laterality: right Lung location: upper lobe of lung Pneumonia type: due to unspecified organism Qualified Code(s): J18.9 - Pneumonia, unspecified organism Code(s): J18.9 - Pneumonia, unspecified organism Status: Acute (2) Hypoxemia requiring supplemental oxygen: Code(s): R09.02 - Hypoxemia; Z99.81 - Dependence on supplemental oxygen Status: Acute (3) Chronic obstructive pulmonary disease: Qualifiers: COPD type: unspecified COPD Qualified Code(s): J44.9 - Chronic obstructive pulmonary disease, unspecified Code(s): J44.9 - Chronic obstructive pulmonary disease, unspecified Status: Chronic (4) Insomnia: Qualifiers: Insomnia type: unspecified Qualified Code(s): G47.00 - Insomnia, unspecified Code(s): G47.00 - Insomnia, unspecified Status: Chronic (5) Dyslipidemia: Code(s): E78.5 - Hyperlipidemia, unspecified Status: Chronic (6) GERD (gastroesophageal reflux disease): Qualifiers: Esophagitis presence: without esophagitis Qualified Code(s): K21.9 - Gastro-esophageal reflux disease without esophagitis Code(s): K21.9 - Gastro-esophageal reflux disease without esophagitis Status: Chronic (7) Peripheral neuropathy: Qualifiers: Peripheral neuropathy type: polyneuropathy, unspecified Qualified Code(s): G62.9 - Polyneuropathy, unspecified Code(s): G62.9 - Polyneuropathy, unspecified Status: Chronic (8) Bipolar depression: Code(s): F31.9 - Bipolar disorder, unspecified Status: Chronic (9) Dysphagia: Code(s): R13.10 - Dysphagia, unspecified Status: Acute (10) Thrombocytopenia: Code(s): D69.6 - Thrombocytopenia, unspecified Status: Acute (11) Anemia: Code(s): D64.9 - Anemia, unspecified Status: Acute DS: Summary Hospital Course Reason for hospitalization: 70yo male with COPD, current smoker, insomnia, GERD, hyperlipidemia, COPD presents to the ED from home on 09/08/2025 with complaints of confusion and fever noticed by family. Please see H&P for details. Hospital Course: On admission, patient was hypotensive with BP 88/51. No documented fevers here. He was hypoxic requiring a HFNC initially. WBC 4.1, chronic anemia and chronic thrombocytopenia. Sodium 136, anion gap 2 and normal renal function. PCT 9.6 that improved on repeat. BNP 1600 but not felt clinically that he had CHF. COVID, Influenza and RSV PCR negative. MRSA nasal swab negative. UA with urobilinogen 2.0, leukocyte Estrace 1+, no wbc's and no bacteria seen. ECG showed sinus rhythm. Head CT showing no acute intracranial findings. Chest x- ray with pulmonary edema and/or multifocal bilateral airspace disease. CT chest/abdomen/pelvis with contrast showing pneumonia in all lobes with a posterior predominance, material in the right-sided bronchi which may be mucus plugging or aspiration but no acute abdominal or pelvic findings. Sputum, Blood and Urine Cx collected and he was started on IV abx. He was made NPO. Speech therapy evaluation with a MBS showing patient need Pureed diet Level 4 with Moderately thick liquids. Diet adjusted. He was weaned to room air. PT/OT o rdered here but patient did not want this at home. B12 normal but Folate was low so folate replacement ordered. BP improved and we were able to add back his anti-HTN medications. Iron studies were consistent with iron deficiency. Iron added at discharge. His mental status improved. He overall did well and was able to be discharged home on 09/11/25. Discharge instruction discussed with patient and [id number]. Medications discussed including side effects. All questions answered. Status at Discharge Cognitive/behavioral status at discharge: stable Time Spent with Patient Time attestation: Total time spent providing and/or coordinating discharge services: 35minutes Time spent: Greater than 30 minutes Exam Narrative: AF 97.6 155/76 75 18 93% ra Gen - NARD Chest - coarse BS better after a cough. nml RR CV - RRR S1/S2 Abd - Soft, NT/ND, Positive BS Ext - No pedal edema Neuro - Alert and oriented x4. Psych - Nml mood and affect Skin - Warm and dry DS: Data Data Completed and Pending Labs on day of discharge: Labs from last 24 hours 09/11/25 09/11/25 09/11/25 11:27 07:36 05:55 WBC 4.1 L RBC 3.06 L Hgb 8.7 L Hct 28.2 L MCV 92.2 MCH 28.4 MCHC 30.9 L RDW 14.5 Plt Count 76 L MPV 12.9 H Immature Gran % (Auto) 0.7 H Neut % (Auto) 82.4 H Lymph % (Auto) 13.0 L [place] % (Auto) 3.2 Eos % (Auto) 0.5 Baso % (Auto) 0.2 Lymph # (Auto) 0.53 L [place] # (Auto) 0.1 Eos # (Auto) 0.0 Baso # (Auto) 0.0 Abs Immat Gran (auto) 0.03 Absolute Neuts (auto) 3.4 Absolute Nucleated RBC 0.000 Nucleated RBC % 0.0 % Immature Plt Fraction 6.6 Sodium 136 L Potassium 3.7 Chloride 108 H Carbon Dioxide 27 Anion Gap 1 L BUN 12 Creatinine 0.78 Estim Creat Clear Calc 72 Estimated GFR > 60 Glucose 93 POC Capillary Glucose 118 H 94 Calcium 9.1 Magnesium 2.1 Total Bilirubin 0.5 AST 32 ALT 50 Alkaline Phosphatase 80 Total Protein 5.0 L Albumin 2.5 L Procalcitonin 3.3 09/10/25 09/10/25 20:07 17:13 WBC RBC Hgb Hct MCV MCH MCHC RDW Plt Count MPV Immature Gran % (Auto) Neut % (Auto) Lymph % (Auto) [place] % (Auto) Eos % (Auto) Baso % (Auto) Lymph # (Auto) [place] # (Auto) Eos # (Auto) Baso # (Auto) Abs Immat Gran (auto) Absolute Neuts (auto) Absolute Nucleated RBC Nucleated RBC % % Immature Plt Fraction Sodium Potassium Chloride Carbon Dioxide Anion Gap BUN Creatinine Estim Creat Clear Calc Estimated GFR Glucose POC Capillary Glucose 131 H 103 Calcium Magnesium Total Bilirubin AST ALT Alkaline Phosphatase Total Protein Albumin Procalcitonin Preliminary micro results at discharge 09/09/25 05:17 Gram Stain Sputum Result 1 - Preliminary Sputum Sputum Culture - Preliminary Gram negative bacilli isolated 09/08/25 10:20 - Preliminary Urine Catheterized Discharge Plan Discharge Attending physician on discharge: Kei Tran Consulting providers: Deana Srivastava Discharging Clinician: Kei Tran Anticipated Discharge Date/Time: 09/11/25 14:26 Patient Disposition: Home Activity: as tolerated Diet: other - see discharge instructions Discharge Instructions: Pureed (Level 4) diet with thickened (Level 3) liquids. Please complete your antibiotic course even if you are starting to feel well. Take precautions to avoid falls. Rise slowly from a lying or sitting position. Pause before standing or walking. Contact your doctor or call 911 and come to the Emergency Room if you have fevers, increasing SOB or other worrisome symptoms. Follow-up with your primary care provider in 1-2 weeks. Please call for appointment. Thank you for using [facility] for your health care needs. Patient Instructions: Antibiotic Form Patient Language: Latvian Stand Alone Forms: General Discharge Information Follow-up/Referrals: Olivia Perdomo APRN [Primary Care Provider, Family Practice] - Call for Appointment Discharge Medications: New folic acid 1 mg Tablet 1 mg PO DAILY Qty: 30 1RF azithromycin [Zithromax] 250 mg Tablet 250 mg PO NOON Qty: 1 0RF amoxicillin-pot clavulanate 875-125 mg tablet 1 tablet PO Q12H Qty: 9 0RF ferrous sulfate 325 mg (65 mg iron) tablet 325 mg PO DAILY Qty: 30 0RF Continued gabapentin 600 mg tablet 1,200 mg PO BID Qty: 360 0RF guaifenesin 1,200 mg tablet extended release 12hr 1,200 mg PO BID Qty: 20 0RF albuterol sulfate 90 mcg/actuation HFA aerosol inhaler 2 inh inhalation QID PRN (Reason: Shortness Of Breath) aspirin [Adult Low Dose Aspirin] 81 mg tablet,delayed release (DR/EC) 81 mg PO DAILY cholecalciferol (vitamin D3) 50 mcg (2,000 unit) capsule 50 mcg PO DAILY clonazepam 0.5 mg tablet 0.25 mg PO HS miconazole nitrate 2 % aerosol powder 1 spray topical TID PRN (Reason: Rash) Rx Instructions: Affected area omeprazole 40 mg capsule,delayed release(DR/EC) 40 mg PO DAILY risperidone 4 mg tablet 4 mg PO HS trazodone 100 mg tablet 100 mg PO 1800,2100 Patient Comments: take one tablet at 8pm followed by two more tablets twenty minutes later Rx Instructions: Take 1 tablet at 1800, and two tablets at bedtime diclofenac sodium 50 mg tablet,delayed release (DR/EC) 50 mg PO BID temazepam 15 mg capsule 15 mg PO QHS PRN (Reason: sleep) duloxetine 30 mg capsule,delayed release(DR/EC) 30 mg PO HS tamsulosin 0.4 mg capsule 0.4 mg PO QHS (DME) Aerochamber MV Spacer See Rx Instructions .Route Qty: 1 0RF Rx Instructions: As directed atorvastatin [Lipitor] 40 mg tablet 40 mg PO QHS starch (thickening) Powder In Packet 1 ea PO TIDWM lisinopril 20 mg tablet 20 mg PO DAILY Qty: 90 1RF Patient Comments: taking 20 mg in the morning lisinopril 10 mg tablet 10 mg PO .evening Qty: 90 1RF Patient Comments: taking 10mg in the evening Trelegy Ellipta 100-62.5-25 mcg blister with device 1 inh inhalation DAILY Qty: 60 0RF topiramate 100 mg tablet 200 mg PO BID Rx Instructions: takes in morning and at bedtime Foltrate 0.5-1 mg tablet 1 tablet PO DAILY acetaminophen 500 mg capsule 500 mg PO BID Discontinued fluticasone fur. 100 mcg-umeclid 62.5 mcg-vilant 25 mcg inhalat.powder 100-62.5-25 mcg blister with device 0RF Date of admission: 09/08/25 13:53 Primary Care Provider: Olivia Perdomo Admitting Provider: Ayush Vela Attending physician on admission: Ayush Vela Condition: Stable Hospitalist MIPS Heart Failure (Exclusion) Patient has history of Heart Transplant or Left Ventricular Assistive Device?: No IF YES, STOP HERE Heart Failure (Qualifier) Patient has current or prior documentation of LVEF less than or equal to 40%, or mod/servere depressed LVSF?: No IF NO, STOP HERE
--- NOTE | 2025-09-11 15:14 | PCOTNOTE ---
Patient refuses to participate in therapy services. PAtient states he is going home, Per RN , he is on the discharge list, that is the plan
--- NOTE | 2025-09-13 08:33 | PC.NURSE ---
Urine growing Proteus Mirabilis. Dr. Tran reviewed findings and is susceptible to amoxicillin and ampicillin. Sputum cx growing E. [place]- ESBL. DR. Tran reviewed findings.
--- NOTE | 2025-09-13 15:34 | WPDPN ---
Subjective Date/time seen: 09/13/25 15:34 Interval history: Sputum culture grew ESBL EColi sensitive to Bactrim DS. Spoke with ID doctor who felt Bactrim was worth starting to see if he responds. If not he will need IV carbopenem. Spoke with sister and discussed findings and plan for starting Bactrim but that patient may need IV abx if he does not improve. Discussed what to look for and that also would need CXR to verify clearance. Side effects discussed. Called [facility]: Bactrim DS one tab BID x 10 days. [facility] 71 Spoke with Olivia Perdomo and discussed above plan and need for CXR in about 4 weeks. Obviously, patient should return to ED if his condition worsens. All questions answered with all involved. Objective Data Intake/Output Intake/Output: Intake & Output 09/10/25 09/11/25 09/12/25 09/13/25 23:59 23:59 23:59 23:59 Intake Total 1720 600 Output Total 1600 2100 Balance 120 -1500 Meds/Results Radiology Results: ITS Impressions Head CT 09/08/25 12:05 IMPRESSION: 1. No acute intracranial findings. Chest/Abdomen/Pelvis CT 09/08/25 12:25 IMPRESSION: 1. Pneumonia in all lobes with a posterior predominance. 2. Material in right-sided bronchi, which may be mucous plugging or aspiration. Chest X-Ray 09/08/25 12:32 IMPRESSION: 1. Pulmonary edema and/or multifocal bilateral airspace disease. Modified Barium Swallow 09/09/25 15:11 IMPRESSION: Aspiration observed on real-time exam. See also speech therapist's notes for complete evaluation.
--- NOTE | 2025-09-16 08:34 | PC.NURSE ---
Blood cx show no growth.
== END 2025-09-11 15:20 | disposition home or self-care (01) | DRG 179 ==
LOC: ANHED 13:43 → ANHIMU 15:04 → ANH3MEDSUR 09-09 18:31
PROVIDERS: Nurse Practitioner Adult Health; Physician Assistant; Student in an Organized Health Care Education/Training Program; Admitting Provider Internal Medicine; Emergency Provider Family Medicine; PCP Nurse Practitioner Family; Visit Provider Internal Medicine
DX: J69.0 Pneumonitis due to inhalation of food and vomit (principal); J44.9 Chronic obstructive pulmonary disease, unspecified; D69.6 Thrombocytopenia, unspecified; D64.9 Anemia, unspecified; D50.9 Iron deficiency anemia, unspecified; K21.9 Gastro-esophageal reflux disease without esophagitis; E78.5 Hyperlipidemia, unspecified; M54.59 Other low back pain; E55.9 Vitamin D deficiency, unspecified; F43.10 Post-traumatic stress disorder, unspecified; G47.33 Obstructive sleep apnea (adult) (pediatric); F31.9 Bipolar disorder, unspecified; G62.9 Polyneuropathy, unspecified; R13.10 Dysphagia, unspecified; G47.00 Insomnia, unspecified; Z20.822 Contact with and (suspected) exposure to COVID-19; F10.91 Alcohol use, unspecified, in remission; F17.210 Nicotine dependence, cigarettes, uncomplicated; Z96.652 Presence of left artificial knee joint; Z86.16 Personal history of COVID-19; Z79.51 Long term (current) use of inhaled steroids; Z79.82 Long term (current) use of aspirin
CPT/HCPCS: 36415; 70450; 71045; 71260; 74177; 74230; 80048; 80053; 81001; 82607; 82728; 82746; 82948; 83540; 83550; 83735; 83880; 84145; 85025; 85055; 85610; 85730; 87040; 87070; 87086; 87186; 87637; 87641; 92610; 92611; 93005; 94640; 94667; 96361; 96365; 97162; 97165; 99285; A9270; J0295; J0456; J0696; J2543; J7030; J7050; Q9967

== ENCOUNTER 2025-10-18 13:01 | Outpatient (CLI) | payer MEDICARE, SELFPAY | END 2025-10-18 13:02 | disposition home or self-care (01) | LOC: ANHGOSHLAB 13:04 | PROVIDERS: PCP Nurse Practitioner Family; Visit Provider Nurse Practitioner Family | DX: Z87.440 Personal history of urinary (tract) infections (principal); R84.5 Abnormal microbiological findings in specimens from respiratory organs and thorax | CPT/HCPCS: 87070; 87086; 87186; 87205 ==

== ENCOUNTER 2025-10-18 13:15 | Outpatient (CLI) | payer MEDICARE, SELFPAY ==
--- NOTE | ~2025-10-18 | XR_ITS ---
EXAMINATION: XR chest 2V 10/18/2025 13:43 INDICATION: Pneumonia. PROCEDURE: 2 view chest COMPARISON: Comparison to multiple prior studies sequentially, with oldest reviewed study dated 01/16/2025. FINDINGS: The lungs are clear. The cardiomediastinal silhouette is within normal limits. There are no pleural effusions. There is no pneumothorax suspected. The lungs are hyperinflated which is consistent with, but not diagnostic of chronic obstructive pulmonary disease. There are scattered calcifi ed granulomas bilaterally. There is dextroscoliosis of the thoracic spine. IMPRESSION: 1: NO ACUTE CARDIOPULMONARY DISEASE. Reviewed, dictated and finalized at location O. APIN FISHER
== END 2025-10-18 13:16 | disposition home or self-care (01) ==
LOC: GOSHIMG 13:16
PROVIDERS: PCP Nurse Practitioner Family; Visit Provider Nurse Practitioner Family
DX: J18.9 Pneumonia, unspecified organism (principal)
CPT/HCPCS: 71046